=== PATIENT | female | born 1955 | race Caucasian/White ===

== ENCOUNTER 2017-07-11 13:58 | Inpatient (IN) ==
[2017-07-11] MEDS ORDERED: Aspirin 325 MG TABLET PO ONE (14:55)
--- NOTE | 2017-07-11 15:01 | Emergency Department Note ---
Disposition Clinical Impression: New onset a-fib, Atrial fibrillation with RVR Dyspnea Qualifiers: Dyspnea type: unspecified Qualified Code(s): R06.00 - Dyspnea, unspecified Disposition: Admitted As Inpatient Condition: Good Time of Disposition: 18:40 Arrhythmia/Palpitations HPI - General Chief Complaint: ED Arrhythmia/Palpitations Stated Complaint: AKILAH Cough HR feels fast Time Seen by Provider: 07/11/17 14:38 Source: patient Mode of arrival: ambulatory Limitations: no limitations Nursing Notes Reviewed: Yes Vital Signs Reviewed: Yes - History of Present Illness HPI Narrative: Patient is a 62-year-old female with past medical history of depression, high cholesterol, migraines which she takes prophylactic propranolol for, undiagnosed "palpitations" since she was a child. The patient says that ever since she was a child, she has had episodes of palpitations that usually last up to 10 minutes and then go away. These have occurred randomly throughout her life. She has never been evaluated for anything like A. fib, does not currently take any medications for irregular heart rate or blood thinners besides daily baby aspirin. She said that today while at home, she began having palpitations and mild shortness of breath. Denies any chest pain. She said that she coughed up the large amount of phlegm, nonbloody, and then felt that she is moving air better. She denies any history of blood clots or recent travel, recent surgeries, history of cancer. She does admit to being a chronic smoker. She said that her palpitations have been present for at least 3-4 hours now which is the longest that they have been present. Denies any other fevers, nausea, vomiting, abdominal pain - Related Data Home Medications Medication Instructions Recorded Confirmed Cholecalciferol (D-3) [Vitamin D] 2,000 unit PO DAILY 07/07/16 07/11/17 Pravastatin Sodium [Pravachol] 40 mg PO QPM 07/07/16 07/11/17 Omeprazole [PriLOSEC] 20 mg PO BIDAC 07/11/17 07/11/17 Ondansetron ODT [Zofran ODT] 4 mg PO TID PRN 07/11/17 07/11/17 Pramipexole [Mirapex] 0.25 mg PO HS 07/11/17 07/11/17 Propranolol LA (24 HR) [Inderal LA] 60 mg PO DAILY 07/11/17 07/11/17 Rizatriptan Benzoate [Maxalt] 10 mg PO DAILY PRN 07/11/17 07/11/17 Tizanidine HCl 2 mg PO BID PRN 07/11/17 07/11/17 Venlafaxine XR (24 HR) [Effexor XR] 150 mg PO DAILY 07/11/17 07/11/17 Previous Rx's Medication Instructions Recorded Aspirin 81 mg PO DAILY tab.chew 07/09/16 Allergies Allergy/AdvReac Type Severity Reaction Status Date / Time Amoxicillin [From Augmentin] Allergy Rash Verified 03/23/16 18:01 clavulanic acid Allergy Rash Verified 03/23/16 18:01 [From Augmentin] prednisone Allergy Rash Verified 07/11/17 14:27 All systems ED: reviewed and negative except as stated. Constitutional: Denies: fever Cardiovascular: Reports: palpitations. Denies: chest pain Respiratory: Reports: dyspnea, sputum production. Denies: wheezes Gastrointestinal: Denies: abdominal pain, nausea, vomiting Neurological: Denies: headache, weakness, numbness Past Medical History - Past Medical History Attestation: Yes The following information was validated with the patient. Source: patient Medical history: Reports: GERD, hyperlipidemia, TIA, other Surgical history: Reports: cholecystectomy, other Psychiatric history: Reports: depression - Social History Smoking Status: Current every day smoker Smokeless Tobacco Status: No Alcohol use: Reports: occasionally Drug use: Reports: none Physical Exam - General Limitations: no limitations General appearance: alert - Head Head exam: atraumatic, normocephalic, normal inspection - Eye Eye exam: Present: normal appearance, PERRL, EOMI - ENT ENT exam: normal exam, normal oropharynx, mucous membranes moist - Neck Neck exam: Present: normal inspection, full ROM, trachea midline - Chest Chest inspection: Present: normal inspection, symmetric chest wall rise - Respiratory Respiratory exam: Present: normal lung sounds bilaterally. Absent: respiratory distress, wheezes - Cardiovascular Cardiovascular exam: Present: tachycardia, irregular rhythm, normal heart sounds , +S1, +S2. Absent: systolic murmur, diastolic murmur, rubs, gallop - Abdominal Exam Abdominal exam: Present: soft, Non-Tender. Absent: tenderness, distention, guarding, rebound, rigidity - Extremities Exam Extremities exam: Present: full ROM, pedal edema (mild edema LLE). Absent: tenderness - Neurological Exam Neurological exam: Present: alert, oriented X3 - Psychiatric Psychiatric exam: Present: normal affect, normal mood - Skin Skin exam: Present: warm, dry, intact, normal color Course Course Narrative: Pulse and 130s, blood pressure 140s systolic. Patient is mentating well, in no acute distress. Heart irregular rhythm, A. fib. Lungs clear to auscultation. The rest of the physical exam was benign. This likely A. fib RVR. It sounds like the patient has had possible paroxysmal A. fib her entire life that may have not been diagnosed previously due to her history of "palpitations" occurring throughout her childhood and adult life. EKG shows A. fib RVR with no acute ST elevation or depression. We will order a chest x-ray, basic blood work, troponin. We will give the patient Cardizem 10 mg bolus and then start IV cardizem drip. 15:46 mild elevation in white blood cell count, mildly anemic. BMP shows no major abnormalities. Troponin negative. Chest x-ray negative. However, patient's d-dimer is elevated. I discussed this with the patient and she was agreeable with getting a CTA for further evaluation of PE. She continues to have no chest pain at this time. Will also order LE dopplers to assess for DVT due to left LE swelling. 18:14 lower extremity Dopplers were negative for DVT. CTA of the chest was negative for PE. Heart rate is now controlled in the 80s to 100s rate. Repeat EKG shows A. fib with a rate of 100, no acute ST changes. Patient subjectively feels better, no longer has sensation of palpitations. She continues to have no chest pain or dyspnea at this time. Patient is currently on Cardizem drip. We will admit the patient for further care of new onset A. fib RVR. Chest X-Ray 07/11/17 14:55 IMPRESSION: No convincing acute cardiopulmonary abnormality. D/ / Jonatan Conti MD / Jonatan Conti MD Interpreting Provider: Jonatan Conti MD Vital Signs Temperature 98.6 F 07/11/17 14:24 Pulse Rate 139 07/11/17 14:24 Respiratory Rate 18 07/11/17 14:24 Blood Pressure 140/84 07/11/17 14:24 O2 Sat by Pulse Oximetry 95 07/11/17 14:24 Temperature 98.6 F 07/11/17 20:16 Pulse Rate 94 07/11/17 20:16 Respiratory Rate 18 07/11/17 20:16 Blood Pressure 110/48 07/11/17 20:16 O2 Sat by Pulse Oximetry 96 07/11/17 20:16 Oxygen Delivery Oxygen Delivery Room Air Arrhythmia/Palpitations - MDM Narrative Medical decision making narrative: lower extremity Dopplers were negative for DVT. CTA of the chest was negative for PE. Heart rate is now controlled in the 80s to 100s rate. Repeat EKG shows A. fib with a rate of 100, no acute ST changes. Patient subjectively feels better, no longer has sensation of palpitations. She continues to have no chest pain or dyspnea at this time. Patient is currently on Cardizem drip. We will admit the patient for further care of new onset A. fib RVR. - Medical Records Medical records reviewed: Yes I reviewed the patient's medical records. - Lab Data Lab results reviewed: Yes I reviewed the patient's lab results. Result diagrams: 07/11/17 14:34 07/11/17 14:34 Lab Results 07/11/17 07/11/17 07/11/17 Range/Units 14:34 14:34 14:34 WBC 12.7 H (4.3-11.1) K/mcL RBC 3.70 L (3.82-4.97) M/mcL Hgb 11.1 L (11.5-15.4) g/dL Hct 32.9 L (35.3-44.9) % MCV 88.9 (83.0-100.0) fL MCH 30.0 (28.0-33.3) pg MCHC 33.7 (31.6-35.5) g/dL RDW 16.8 H (11.5-14.5) % Plt Count 222 (140-400) K/mcL MPV 11.5 (9.4-12.4) fL Immature Gran % 0.6 (0-4) % Seg Neutrophils % 81.1 % Lymphocytes % 12.1 % Monocytes % 6.1 % Eosinophils % 0.0 % Basophils % 0.1 % Neutrophils # 10.3 H (1.6-8.9) K/mcL Lymphocytes # 1.5 (0.6-4.6) K/mcL Monocytes # 0.8 (0.0-1.3) K/mcL Eosinophils # 0.0 (0.0-0.6) K/mcL Basophils # 0.0 (0.0-0.2) K/mcL PT 10.5 (9.4-12.1) Seconds INR 1.0 APTT 20.4 L (26.0-36.0) Seconds D-Dimer 1325 H (0-500) ng/mLFEU Sodium 138 (136-145) mEq/L Potassium 3.7 (3.5-4.5) mEq/L Chloride 109 (98-109) mEq/L Carbon Dioxide 21 (19-29) mEq/L BUN 13 (7-20) mg/dL Creatinine 0.91 (0.57-1.11) mg/dL Est GFR ( Amer) > 60 (> 60) Est GFR (Non-Af Amer) > 60 (> 60) BUN/Creatinine Ratio 14 (6-26) Glucose 125 H (70-99) mg/dL Calculated Osmolality 288 (280-300) Calcium 8.9 (8.6-10.8) mg/dL Troponin I (0-0.03) ng/mL TSH 0.515 (0.350-4.840) mcIU/mL 07/11/17 Range/Units 14:34 WBC (4.3-11.1) K/mcL RBC (3.82-4.97) M/mcL Hgb (11.5-15.4) g/dL Hct (35.3-44.9) % MCV (83.0-100.0) fL MCH (28.0-33.3) pg MCHC (31.6-35.5) g/dL RDW (11.5-14.5) % Plt Count (140-400) K/mcL MPV (9.4-12.4) fL Immature Gran % (0-4) % Seg Neutrophils % % Lymphocytes % % Monocytes % % Eosinophils % % Basophils % % Neutrophils # (1.6-8.9) K/mcL Lymphocytes # (0.6-4.6) K/mcL Monocytes # (0.0-1.3) K/mcL Eosinophils # (0.0-0.6) K/mcL Basophils # (0.0-0.2) K/mcL PT (9.4-12.1) Seconds INR APTT (26.0-36.0) Seconds D-Dimer (0-500) ng/mLFEU Sodium (136-145) mEq/L Potassium (3.5-4.5) mEq/L Chloride (98-109) mEq/L Carbon Dioxide (19-29) mEq/L BUN (7-20) mg/dL Creatinine (0.57-1.11) mg/dL Est GFR ( Amer) (> 60) Est GFR (Non-Af Amer) (> 60) BUN/Creatinine Ratio (6-26) Glucose (70-99) mg/dL Calculated Osmolality (280-300) Calcium (8.6-10.8) mg/dL Troponin I 0.00 (0-0.03) ng/mL TSH (0.350-4.840) mcIU/mL - Radiology Data Radiology results reviewed: Yes I reviewed the patient's radiology results. Chest X-Ray 07/11/17 14:55 IMPRESSION: No convincing acute cardiopulmonary abnormality. D/ / Jonatan Conti MD / Jonatan Conti MD Interpreting Provider: Jonatan Conti MD Chest CTA 07/11/17 15:45 IMPRESSION: 1. No evidence of pulmonary embolism. 2. Minimal subsegmental platelike bibasilar atelectasis. 3. 3 mm right upper lobe pulmonary nodule. See follow-up recommendations below. RECOMMENDATIONS: Fleischner Society guidelines for follow-up and management of incidentally detected pulmonary nodules: Single Solid Nodule: Nodule size less than 6 mm In a low-risk patient, no routine follow-up. In a high-risk patient, optional CT at 12 months. - Low risk patients include individuals with minimal or absent history of smoking and other known risk factors. - High risk patients include individuals with a history or smoking or known risk factors. Radiology 2017 http://pubs.rsna.org/doi/full/10.1148/radiol.[email or web address] D/ / Dionicio Elise MD / Dionicio Elise MD Interpreting Provider: Dionicio Elise MD - EKG Data EKG attestation: Yes I reviewed and interpreted this EKG. EKG results narrative: 07/11/2017 at 14:16. A. fib RVR. Rate 137. QRS 83. QTc 377. No acute ST elevation or depression. EKG #2. 07/11/2017 at 18:09. A. fib. Rate 100. QRS 93. QTc 403. No acute ST elevation or depression. S.B.A.RHodan - S.Apryl Situation: Demographics, MOA Background: Presenting Complaint, Relevant PMH, Meds, & Allergies Assessment: Vital Signs, Course and respsone to treatment, Exam Concerns, Patient/Family Expectation, Pertinant Lab Results Recommendation: Barrier(s) to disposition, Recommendation based on pending studies, treatments, or consults S.B.Sonali.Jessica Report Given to: Salvador Mulligan Repor Time: 18:39 Attestation Statement - Attestation Attestation: I examined this patient and my medical decision-making was reviewed with the Resident Physician. I agree with the documented findings, disposition and treatment plan as described except to the extent set forth below. 62-year-old female with concern for A. fib with rapid ventricular response. She does also have leg pain. D-dimer was elevated. CT scan of the chest is negative. Duplex are negative. We will admit after Cardizem infusion initiated. The patient had improvement of heart rate with Cardizem. She was admitted in stable condition for cardiac consultation. Aspirin was administered.
[2017-07-11 15:16] LABS: Basophils % 0.1 %; Hematocrit 32.9 % (35.3-44.9); Hemoglobin 11.1 g/dL (11.5-15.4); Immature Granulocytes % 0.6 % (0-4); Lymphocytes # 1.5 K/mcL (0.6-4.6); Lymphocytes % 12.1 %; Mean Corpuscular HGB Conc 33.7 g/dL (31.6-35.5); Mean Corpuscular Volume 88.9 fL (83.0-100.0); Mean Platelet Volume 11.5 fL (9.4-12.4); Monocytes # 0.8 K/mcL (0.0-1.3); Monocytes % 6.1 %; Neutrophils # 10.3 K/mcL (1.6-8.9); Platelet Count 222 K/mcL (140-400); Red Cell Distribution Width 16.8 % (11.5-14.5); Segmented Neutrophils % 81.1 %
[2017-07-11 15:24] LABS: BUN/Creatinine Ratio 14 (6-26); Blood Urea Nitrogen 13 mg/dL (7-20); Calcium 8.9 mg/dL (8.6-10.8); Carbon Dioxide 21 mEq/L (19-29); Chloride 109 mEq/L (98-109); Glucose 125 mg/dL (70-99); Osmolality,Calculated 288 (280-300); Potassium 3.7 mEq/L (3.5-4.5); Prothrombin Time 10.5 Seconds (9.4-12.1); Sodium 138 mEq/L (136-145); eGFR For African Americans > 60 (> 60); eGFR For Non-African Americans > 60 (> 60)
[2017-07-11 15:28] LABS: Activated Partial Thrombo Time 20.4 Seconds (26.0-36.0)
[2017-07-11 15:46] LABS: Thyroid Stimulating Hormone 0.515 mcIU/mL (0.350-4.840)
[2017-07-11] MEDS ORDERED: Naloxone 0.4 MG/ML INJ IVP PRN (20:17)
[2017-07-11] MEDS: Divalproex (24 HR) 250 MG TABLET PO SCH (21:14)
--- NOTE | 2017-07-11 21:54 | Internal Med History&Physical ---
<Jesus Hutchinson - Last Filed: 07/12/17 00:39> Date of Encounter: 07/11/17 Internal Medicine - H&P: HPI History of present illness: Ms. Barksdale is a 62 year old female Internal Medicine - H&P: Meds Cholecalciferol (D-3) [Vitamin D] 2,000 unit PO DAILY 07/07/16 [History] Pravastatin Sodium [Pravachol] 40 mg PO QPM 07/07/16 [History] Aspirin 81 mg PO DAILY tab.chew 07/09/16 [Rx] Omeprazole [PriLOSEC] 20 mg PO BIDAC 07/11/17 [History] Ondansetron ODT [Zofran ODT] 4 mg PO TID PRN 07/11/17 [History] Pramipexole [Mirapex] 0.25 mg PO HS 07/11/17 [History] Propranolol LA (24 HR) [Inderal LA] 60 mg PO DAILY 07/11/17 [History] Rizatriptan Benzoate [Maxalt] 10 mg PO DAILY PRN 07/11/17 [History] Tizanidine HCl 2 mg PO BID PRN 07/11/17 [History] Venlafaxine XR (24 HR) [Effexor XR] 150 mg PO DAILY 07/11/17 [History] 3 Allergy/AdvReac Type Severity Reaction Status Date / Time Amoxicillin [From Augmentin] Allergy Rash Verified 03/23/16 18:01 clavulanic acid Allergy Rash Verified 03/23/16 18:01 [From Augmentin] prednisone Allergy Rash Verified 07/11/17 14:27 All Systems PM: A 10-system review of systems was performed and is negative for pertinent findings except as documented above in the HPI. - Constitutional Vitals: Temp Pulse Resp BP Pulse Ox 98.4 F 68 17 98/58 95 07/11/17 23:43 07/11/17 23:43 07/11/17 23:43 07/11/17 23:43 07/11/17 23:43 Internal Med - H&P Results - Labs CBC & Chem 7: 07/11/17 14:34 07/11/17 14:34 Labs: Cardiac Enzymes 07/11/17 Range/Units 21:30 Troponin I 0.01 (0-0.03) ng/mL - Attending Attestation Patient was seen and examined personally on the floor on July 11 and plan and findings discussed with nurse practitioner and agreed. Patient has history of palpitations and today she came in with new onset A. fib with RVR. She is on Cardizem drip and now heart rate is well controlled. Her chads score is quite low and therefore anticoagulation is not started. An echocardiogram and stress test ordered for the morning to see if these are ischemia induced arrhythmia. Cardiology will be consulted. Her TSH is normal <Isabella Joyner L - Last Filed: 07/12/17 02:00> Date of Encounter: 07/11/17 Time of Encounter: 21:54 Assessment and Plan (1) New onset a-fib Current visit: Yes Status: Acute Patient states that she has had palpitations all for her life normally they last approximately 10 minutes and resolve on her own. Today she had episode with shortness of breath that lasted a few hours. She denied any chest pain or lightheadedness. She was noted to be in A. fib RVR with heart rate 130. Started on Cardizem drip and was given aspirin. D-dimer was elevated but it was negative for any PE C Dopplers were negative. We will continue with Cardizem drip 2 consult cardiology 3 obtaining echo 4 patient's chads score is 1 for gender . Continue with aspirin 5 continue with cardiac monitoring (2) Tobacco abuse Current visit: No Status: Chronic Encourage patient to stop smoking, states has been cutting back to offer nicotine patch but declined at this time (3) DVT prophylaxis Current visit: No Status: Acute Internal Medicine - H&P: HPI Chief complaint: Palpitations-shortness of breath Admitted From: Emergency Dept Plans for Post Hospital Care: Home History of present illness: Ms. Barksdale is a 62 year old female past medical history of depression high cholesterol migraines DVT palpitations. According to patient she has been experiencing palpitations ever since she was a child. These episodes usually last about 10 minutes and then resolve on their own. They randomly occur throughout her life and she is never really been evaluated. She is not on any medications for rate control or blood thinners besides a daily baby aspirin. Today she began to experience palpitations and was having mild shortness of breath. She denied any chest pain or nausea. She had an episode of coughing and she coughed up a large amount of phlegm. The palpitation episode lasted longer than previous episodes approximately 3-4 hours. She denies any history of DVT recent travels or surgeries or history of cancer. She is a smoker and does not use any home oxygen or inhalers. She presented to the ER with the above complaints. According to ER records upon presentation patient's heart rate was in the 130s his atrial fib with RVR. She was hemodynamically stable with low pressure 140s systolic. Lab work was obtained the TSH was 0.515 troponin was 0 d-dimer was elevated CTA and nursery Dopplers were obtained and both were negative chest x-ray with no acute processes. Slight leukocytosis 12.7. She was given a Cardizem bolus and started on a drip and was given aspirin. She has been admitted for further workup and evaluation. Presently patient appears to be in A. fib with controlled rate of 90. She is hemodynamically stable and denies any chest pain at this time. I did review this case with Dr. Lockhart who agrees with plan. Past Med Surg Social Fam HX - Past Medical History Medical history: GERD, hyperlipidemia, TIA, other Psychiatric history: depression - Past Surgical History Surgical History: cholecystectomy, other - Social History Smoking Status: Current every day smoker Smokeless Tobacco Status: No Alcohol use: occasionally Drug use: none - Family History Brother Living Status: Still Living Hx Family Cardiac Disorders: Yes (Quad bypass surgery 2013) Hx Family Cancer: Yes (Prostate ca) Hx Family Neurologic Disorders: Yes (migraines) Sister History Unknown: Yes Living Status: Still Living Hx Family Cardiac Disorders: Yes (HTN) Hx Family Endocrine Disorder: Yes (DM) Hx Family Neurologic Disorders: Yes (migrains) Mother Living Status: Hx Family Cardiac Disorders: Yes (Blood clots) Hx Family Endocrine Disorder: Yes (DM) All Systems PM: A 10-system review of systems was performed and is negative for pertinent findings except as documented above in the HPI. - Constitutional Constitutional: no chills, no fever(s), no night sweats - EENT Eyes: no change in vision, no discharge, no pain, no photophobia Nose, mouth and throat: no dysphagia, no nasal discharge, no neck pain, no sore throat - Cardiovascular Cardiovascular ROS IM: dyspnea, palpitations, no chest pain, no diaphoresis, no lightheadedness, no syncope - Respiratory Respiratory: cough, change in phlegm color, no dyspnea, no wheezing, no excessive phlegm production - Gastrointestinal Gastrointestinal: no abdominal pain, no diarrhea, no hematemesis, no hematochezia, no melena, no nausea, no vomiting - Genitourinary Genitourinary: no change in urinary stream, no dysuria, no flank pain, no hematuria - Musculoskeletal Musculoskeletal ROS IM: no numbness, no tingling - Integumentary Integumentary IM: no rash, no unusual bruising - Neurological Neurological ROS: no confusion, no convulsions, no focal weakness, no numbness, no tingling, no tremor(s) - Hematologic/Lymphatic Hematologic/Lymphatic: no easy bruising - Constitutional Vitals: Temp Pulse Resp BP Pulse Ox 98.6 F 94 18 110/48 96 07/11/17 20:16 07/11/17 20:16 07/11/17 20:16 07/11/17 20:16 07/11/17 20:16 General appearance: Present: A&O X 3, answers questions appropriately - Head Head exam: Present: atraumatic, normocephalic - Eye Eye exam: Present: PERRL, conjuntiva pink, sclera anicteric Pupils: Present: PERRL - Neck Neck exam general surgery: Present: supple, trachea midline. Absent: lymphadenopathy - Respiratory Respiratory exam: Present: CTAB. Absent: accessory muscle use, rales, rhonchi, wheezes - Cardiovascular Cardiovascular exam: Present: irregular rhythm, +S1, +S2. Absent: diastolic murmur, gallop, rubs, systolic murmur - GI/Abdominal GI/Abdominal exam: Present: normal bowel sounds, soft, no peritoneal signs. Absent: distended, tenderness - Extremities Exam Extremities exam: Present: warm, radial pulses palpable and symmetrical. Absent : calf tenderness, cyanotic, pedal edema - Neurological Exam Neurological exam: Present: CN II-XII intact, oriented X3, no focal deficits. Absent: pronater drift, facial droop, speech deficit - Skin Skin exam: Present: dry, intact Internal Med - H&P Results - Labs CBC & Chem 7: 07/11/17 14:34 07/11/17 14:34 - EKG Data EKG comments: 07/11/17 22:12 Atrial fibrillation with no ST-T wave abnormalities - Diagnostic Studies Other Images Additional comments: Chest X-Ray 07/11/17 14:55 IMPRESSION: No convincing acute cardiopulmonary abnormality. D/ / Jonatan Conti MD / Jonatan Cnoti MD Interpreting Provider: Jonatan Conti MD Chest CTA 07/11/17 15:45 IMPRESSION: 1. No evidence of pulmonary embolism. 2. Minimal subsegmental platelike bibasilar atelectasis. 3. 3 mm right upper lobe pulmonary nodule. See follow-up recommendations below. RECOMMENDATIONS: Fleischner Society guidelines for follow-up and management of incidentally detected pulmonary nodules: Single Solid Nodule: Nodule size less than 6 mm In a low-risk patient, no routine follow-up. In a high-risk patient, optional CT at 12 months. - Low risk patients include individuals with minimal or absent history of smoking and other known risk factors. - High risk patients include individuals with a history or smoking or known risk factors. Radiology 2017 http://pubs.rsna.org/doi/full/10.1148/radiol.[email or web address] D/ / Dionicio Elise MD / Dionicio Elise MD Interpreting Provider: Dionicio Elise MD
[2017-07-12 04:15] LABS: BUN/Creatinine Ratio 15 (6-26); Blood Urea Nitrogen 13 mg/dL (7-20); Calcium 8.5 mg/dL (8.6-10.8); Carbon Dioxide 22 mEq/L (19-29); Chloride 109 mEq/L (98-109); Chol/HDL Ratio 2.5 (0-4.9); Cholesterol 154 mg/dL (< 200); Glucose 86 mg/dL (70-99); HDL Cholesterol 61 mg/dL (40-59); LDL Cholesterol,Calculated 72 mg/dL (0-99); Magnesium 2.1 mg/dL (1.6-2.6); Osmolality,Calculated 287 (280-300); Sodium 139 mEq/L (136-145); Triglycerides 107 mg/dL (< 150); eGFR For African Americans > 60 (> 60); eGFR For Non-African Americans > 60 (> 60)
[2017-07-12 06:47] LABS: Basophils # 0.1 K/mcL (0.0-0.2); Basophils % 0.3 %; Eosinophils # 0.1 K/mcL (0.0-0.6); Eosinophils % 0.5 %; Hematocrit 32.9 % (35.3-44.9); Immature Granulocytes % 0.5 % (0-4); Immature Platelets 3.6 % (1.1-6.1); Lymphocytes # 5.7 K/mcL (0.6-4.6); Lymphocytes % 36.7 %; Mean Corpuscular HGB Conc 33.4 g/dL (31.6-35.5); Mean Corpuscular Hemoglobin 29.8 pg (28.0-33.3); Mean Corpuscular Volume 89.2 fL (83.0-100.0); Mean Platelet Volume 10.3 fL (9.4-12.4); Monocytes % 13.1 %; Neutrophils # 7.5 K/mcL (1.6-8.9); Platelet Count 230 K/mcL (140-400); Red Blood Count 3.69 M/mcL (3.82-4.97); Red Cell Distribution Width 16.6 % (11.5-14.5); Segmented Neutrophils % 48.9 %
[2017-07-12] MEDS: Venlafaxine XR (24 HR) 150 MG CAP.ER.24H PO SCH (07:51)
[2017-07-12] MEDS: Aspirin 81 MG TAB.CHEW PO SCH (07:51)
--- NOTE | 2017-07-12 09:25 | Cardiology Consult Note ---
Date of Encounter: 07/12/17 Time of Encounter: 09:22 Assessment and Plan (1) Atrial fibrillation with RVR Current Visit: Yes Status: Acute New diagnosis, although reports intermittent palpitations for years. HR currently 70s-90s at bedside. Reports symptoms have improved with rate control. Currently denies palpitations, dyspnea or chest pain. On Lopressor 25mg BID and Cardizem gtt at 5mg/hr. Will transition to PO Cardizem CD 120mg daily. TSH 0.515, K 4.0, Mag 2.1. Echo 04/18/14 EF 55-60%, mild-moderate AR. Recheck echo to evaluate EF and valves. [id number] is either a 1 (female) or 3 (female, TIA). Pt had episode in 2013, records reviewed, where she had a possible TIA vs. stress reaction. Given possible hx of TIA, recommend terminal worker anticoagulation. Discussed Coumadin vs NOACs. Prefers NOAC. Will brown check once echo is reviewed since she had mild- mod AR in 2013. Continue to follow until echo results and anticoagulation is determined. (2) Tobacco abuse Current Visit: No Status: Chronic Smoking cessation counseling given. Discussion w patient/family: The assessment and plan as outlined above was discussed with the patient and/or family members who expressed understanding and agreement. All questions were answered. Thank you for involving us in the care of your patient. Please call with any questions. I will discuss all the above with Dr. Mansfield and make changes as necessary. History of Present Illness Consult date: 07/12/17 Requesting physician: Jesus Hutchinson Consult reason: A-Fib RVR Chief complaint: palpitations History of present illness: Ms. Barksdale is a 62 year old female with past medical history of depression, HLD, possible TIA, palpitations, tobacco abuse. According to patient she has been experiencing palpitations ever since she was a child. These episodes usually last about 10 minutes and then resolve on their own. They randomly occur throughout her life and she is never really been evaluated for them. She is not on any medications for rate control or blood thinners besides a daily baby aspirin. Yesterday she began to experience palpitations and was having mild shortness of breath. She denied any chest pain or nausea. She had an episode of coughing and she coughed up a large amount of phlegm. The palpitation episode lasted longer than previous episodes, ongoing for approximately 3-4 hours, which prompted ED evaluation. Upon arrival, pt found to be in A-Fib with RVR, HR 130s. Troponin negative x 3, TSH 0.515, K 4.0, Mag 2.1. DDimer was elevated--CTA ruled out PE. Echo in 2014 showed preserved EF with mild-moderate AR. Past Med Surg Social Fam HX - Past Medical History Medical history: GERD, hyperlipidemia, TIA, other Psychiatric history: depression - Past Surgical History Surgical History: cholecystectomy, other - Social History Smoking Status: Current every day smoker Smokeless Tobacco Status: No Alcohol use: occasionally Drug use: none - Family History Brother Living Status: Still Living Hx Family Cardiac Disorders: Yes (Quad bypass surgery 2013) Hx Family Cancer: Yes (Prostate ca) Hx Family Neurologic Disorders: Yes (migraines) Sister History Unknown: Yes Living Status: Still Living Hx Family Cardiac Disorders: Yes (HTN) Hx Family Endocrine Disorder: Yes (DM) Hx Family Neurologic Disorders: Yes (migrains) Mother Living Status: Hx Family Cardiac Disorders: Yes (Blood clots) Hx Family Endocrine Disorder: Yes (DM) Medications and Allergies Cholecalciferol (D-3) [Vitamin D] 2,000 unit PO DAILY 07/07/16 [History] Pravastatin Sodium [Pravachol] 40 mg PO QPM 07/07/16 [History] Aspirin 81 mg PO DAILY tab.chew 07/09/16 [Rx] Omeprazole [PriLOSEC] 20 mg PO BIDAC 07/11/17 [History] Ondansetron ODT [Zofran ODT] 4 mg PO TID PRN 07/11/17 [History] Pramipexole [Mirapex] 0.25 mg PO HS 07/11/17 [History] Propranolol LA (24 HR) [Inderal LA] 60 mg PO DAILY 07/11/17 [History] Rizatriptan Benzoate [Maxalt] 10 mg PO DAILY PRN 07/11/17 [History] Tizanidine HCl 2 mg PO BID PRN 07/11/17 [History] Venlafaxine XR (24 HR) [Effexor XR] 150 mg PO DAILY 07/11/17 [History] 3 Allergy/AdvReac Type Severity Reaction Status Date / Time Amoxicillin [From Augmentin] Allergy Rash Verified 03/23/16 18:01 clavulanic acid Allergy Rash Verified 03/23/16 18:01 [From Augmentin] prednisone Allergy Rash Verified 07/11/17 14:27 All Systems Review: A 10-system review of systems was performed and is negative for pertinent findings except as documented above in the HPI. - Cardiovascular Cardiovascular: as per HPI, dyspnea at rest, dyspnea on exertion, palpitations - Respiratory Respiratory: cough, dyspnea Physical Examination Vital Signs, Last 4 Hours Temp Pulse Resp BP Pulse Ox 07/12/17 07:55 73 07/12/17 07:20 98.8 F 90 12 108/49 94 07/12/17 06:10 82 121/63 Vital Signs Temp Pulse Resp BP Pulse Ox 07/12/17 07:55 73 07/12/17 07:20 98.8 F 90 12 108/49 94 07/12/17 06:10 82 121/63 07/12/17 05:10 82 112/59 07/12/17 04:12 78 109/62 07/12/17 03:12 98.3 F 71 18 106/56 96 07/12/17 02:00 81 110/77 07/12/17 01:12 67 110/46 07/11/17 23:43 98.4 F 68 17 98/58 95 07/11/17 23:00 73 105/47 07/11/17 22:00 81 122/67 07/11/17 21:00 98 F 75 116/51 07/11/17 20:16 98.6 F 94 18 110/48 96 07/11/17 19:00 20 129/75 07/11/17 18:00 88 20 118/51 95 07/11/17 17:53 90 20 118/63 96 07/11/17 16:30 80 20 117/53 94 07/11/17 15:30 118 20 127/69 95 07/11/17 15:00 138 20 128/104 95 07/11/17 14:45 95 07/11/17 14:43 141 20 126/91 96 07/11/17 14:24 98.6 F 139 18 140/84 95 Intake and Output 07/11/17 07/12/17 07/12/17 23:59 07:59 15:59 Intake Total 50 / 50 0 / 0 75 / 75 Output Total 200 / 200 200 / 200 Balance -150 / -150 -200 / -200 75 / 75 Intake: IV Fluids 75 / 75 Cardizem 125 MG In Dextrose 5% 75 / 75 100 ML @ 5 MG/HR 5 mls/hr IVC . Q24H [facility] Rx#:[id number] Oral 50 / 50 0 / 0 Output: Urine 200 / 200 200 / 200 Other: Weight 87.543 kg 89.9 kg Patient Weight 07/12/17 23:59 Weight 89.9 kg General: Conversant, No Apparent Distress HEENT: Atraumatic, Normocephaly, Mucus Membranes Moist Neck: No JVD, Normal carotid pulses Cardiac: Other (irregularly irregular rhythm) Lungs: Normal Breath Sounds Neuro: Alert and responsive, No focal deficits noted Abdomen: Soft, Non-Tender Skin: No rashes noted on visualized skin Musculoskeletal: No Chest Wall Tenderness Extremities: No Clubbing, No Cyanosis, No Edema, Normal Pulses Results 07/12/17 06:34 07/12/17 02:48 Lab Results 07/11/17 07/12/17 07/12/17 21:30 02:48 02:48 WBC Hgb Hct Plt Count Sodium 139 Potassium 4.0 Chloride 109 Carbon Dioxide 22 BUN 13 Creatinine 0.87 Glucose 86 Calcium 8.5 L Magnesium 2.1 Troponin I 0.01 0.02 07/12/17 06:34 WBC 15.4 H Hgb 11.0 L Hct 32.9 L Plt Count 230 Sodium Potassium Chloride Carbon Dioxide BUN Creatinine Glucose Calcium Magnesium Troponin I Short CBC 07/12/17 07/11/17 Range/Units 06:34 14:34 WBC 15.4 H 12.7 H (4.3-11.1) K/mcL Hgb 11.0 L 11.1 L (11.5-15.4) g/dL Hct 32.9 L 32.9 L (35.3-44.9) % Plt Count 230 222 (140-400) K/mcL Neutrophils # 7.5 10.3 H (1.6-8.9) K/mcL BMP 07/12/17 07/11/17 Range/Units 02:48 14:34 Sodium 139 138 (136-145) mEq/L Potassium 4.0 3.7 (3.5-4.5) mEq/L Chloride 109 109 (98-109) mEq/L Carbon Dioxide 22 21 (19-29) mEq/L BUN 13 13 (7-20) mg/dL Creatinine 0.87 0.91 (0.57-1.11) mg/dL Glucose 86 125 H (70-99) mg/dL Calcium 8.5 L 8.9 (8.6-10.8) mg/dL Cardiac Enzymes 07/12/17 07/11/17 07/11/17 Range/Units 02:48 21:30 14:34 Troponin I 0.02 0.01 0.00 (0-0.03) ng/mL Impressions Chest X-Ray 07/11/17 14:55 IMPRESSION: No convincing acute cardiopulmonary abnormality. D/ / Jonatan Conti MD / Jonatan Conti MD Interpreting Provider: Jonatan Conti MD Chest CTA 07/11/17 15:45 IMPRESSION: 1. No evidence of pulmonary embolism. 2. Minimal subsegmental platelike bibasilar atelectasis. 3. 3 mm right upper lobe pulmonary nodule. See follow-up recommendations below. RECOMMENDATIONS: Fleischner Society guidelines for follow-up and management of incidentally detected pulmonary nodules: Single Solid Nodule: Nodule size less than 6 mm In a low-risk patient, no routine follow-up. In a high-risk patient, optional CT at 12 months. Active Medications Acetaminophen (Tylenol) 650 mg PO Q6HR PRN PRN Reason: Mild Pain (1-3) Stop: 01/10/18 20:18 Aspirin (Aspirin) 81 mg PO DAILY [facility] Stop: 01/11/18 09:01 Last Admin: 07/12/17 07:51 Dose: 81 mg Divalproex Sodium (Depakote Er (24 Hr)) 250 mg PO HS [facility] Stop: 01/10/18 21:01 Last Admin: 07/11/17 21:14 Dose: Not Given Metoprolol Tartrate (Lopressor) 25 mg PO BID [facility] Stop: 01/11/18 09:01 Last Admin: 07/12/17 09:14 Dose: 25 mg Naloxone HCl (Narcan) 0.4 mg IVP Q2MIN PRN PRN Reason: Opioid Reversal Stop: 01/10/18 20:18 Omeprazole (Prilosec) 20 mg PO BIDAC [facility] PRN Reason: Protocol Stop: 01/11/18 07:31 Last Admin: 07/12/17 07:51 Dose: 20 mg Ondansetron HCl (Zofran) 4 mg IVP Q8HR PRN PRN Reason: Nausea And Vomiting Stop: 01/10/18 20:18 Pramipexole Dihydrochloride (Mirapex) 0.25 mg PO HS [facility] Stop: 01/10/18 21:01 Last Admin: 07/11/17 21:14 Dose: 0.25 mg Simvastatin (Zocor) 20 mg PO QPM [facility] Stop: 01/11/18 18:01 Venlafaxine HCl (Effexor Xr) 150 mg PO DAILY [facility] PRN Reason: Protocol Stop: 01/11/18 09:01 Last Admin: 07/12/17 07:51 Dose: 150 mg - Low risk patients include individuals with minimal or absent history of smoking and other known risk factors. - High risk patients include individuals with a history or smoking or known risk factors. Radiology 2017 http://pubs.rsna.org/doi/full/10.1148/radiol.1220469390 D/ / Dionicio Elsie MD / Dionicio Elise MD Interpreting Provider: Dionicio Elise MD - Imaging and Cardiology Echo: report reviewed - EKG Interpretation EKG results cardiology: personally reviewed (A-Fib RVR HR 130s), other (12 hr tele AVG HR 75, A-Fib) Consult Discharge Plan - Plan Referrals: Juhi Jacobson MD [Primary Care Provider] -
--- NOTE | 2017-07-12 11:05 | Internal Med Progress Note ---
Date of Encounter: 07/12/17 Time of Encounter: 11:04 - Assessment and plan (1) Atrial fibrillation with RVR Current Visit: Yes Status: Acute Assessment and plan: Continue BB and diltiazem PO xarelto Follow ECHO cardiology input appreciated (2) Leukocytosis Current Visit: Yes Status: Acute Assessment and plan: Etiology unknown at this time, continue to monitor Qualifiers: Leukocytosis type: unspecified Qualified Code(s): D72.829 - Elevated white blood cell count, unspecified (3) Obesity (BMI 30.0-34.9) Current Visit: Yes Status: Chronic Assessment and plan: Lifestyle modification - Subjective Interval history: Seen and examined at bedside Being managed for Afib with RVR, HR now controlled Leukocytosis is unexplained, she denies chest, or GI symptoms, she is not on steroids at home - Constitutional Vitals: Temp Pulse Resp BP Pulse Ox 98.6 F 73 12 119/62 95 07/12/17 10:47 07/12/17 07:55 07/12/17 10:47 07/12/17 10:47 07/12/17 10:47 General appearance: Present: A&O X 3, pleasant, no acute distress, answers questions appropriately - Head Head exam: Present: atraumatic, normocephalic - Eye Eye exam: Present: PERRL, conjuntiva pink, sclera anicteric Pupils: Present: PERRL - Neck Neck exam general surgery: Present: supple, trachea midline. Absent: lymphadenopathy - Respiratory Respiratory exam: Present: CTAB. Absent: accessory muscle use, rales, rhonchi, wheezes - Cardiovascular Cardiovascular exam: Present: RRR, +S1, +S2. Absent: diastolic murmur, gallop, rubs, systolic murmur - GI/Abdominal GI/Abdominal exam: Present: normal bowel sounds, soft, no peritoneal signs. Absent: distended, tenderness - Extremities Exam Extremities exam: Present: warm, radial pulses palpable and symmetrical. Absent : calf tenderness, cyanotic, pedal edema - Neurological Exam Neurological exam: Present: alert, CN II-XII intact, oriented X3, no focal deficits. Absent: pronater drift, facial droop, speech deficit - Skin Skin exam: Present: dry, intact Internal Medicine: Result - Labs CBC & Chem 7: 07/12/17 06:34 07/12/17 02:48 Labs: Short CBC 07/12/17 Range/Units 06:34 WBC 15.4 H (4.3-11.1) K/mcL Hgb 11.0 L (11.5-15.4) g/dL Hct 32.9 L (35.3-44.9) % Plt Count 230 (140-400) K/mcL Neutrophils # 7.5 (1.6-8.9) K/mcL BMP 07/12/17 02:48 Sodium 139 Potassium 4.0 Chloride 109 Carbon Dioxide 22 BUN 13 Creatinine 0.87 Glucose 86 Calcium 8.5 L Cardiac Enzymes 07/11/17 07/12/17 Range/Units 21:30 02:48 Troponin I 0.01 0.02 (0-0.03) ng/mL - ABG Interpretation ABG results: PT/INR, D-dimer PT 10.5 Seconds (9.4-12.1) 07/11/17 14:34 D-Dimer 1325 ng/mLFEU (0-500) H 07/11/17 14:34 Consult Discharge Plan - Plan Referrals: Juhi Jacobson MD [Primary Care Provider] - (SENT WEB REQUEST ON @ 1299)
[2017-07-12] MEDS: Diltiazem CD (24hr) 120 MG CAPSULE PO SCH (11:19)
[2017-07-12] MEDS: Ondansetron 4 MG/2 ML VIAL IVP PRN (12:27)
[2017-07-12] MEDS: Acetaminophen 325 MG TABLET PO PRN ×2 (12:27→18:23)
--- NOTE | 2017-07-12 12:29 | Electrocardiograph Report ---
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
--- NOTE | 2017-07-12 13:58 | Event Note ---
Date of Encounter: 07/12/17 Time of Encounter: 13:55 - Cardiology Event Note Echo resulted--LVEF 55-60%, Normal LV chamber size, wall thickness and function , Moderately dilated left atrium, Moderate aortic regurgitation, Mild mitral regurgitation, Mild tricuspid regurgitation, No pulmonary hypertension. Xarelto was brown checked--$0 copay. Recommend starting Xarelto this evening. Cardiology signing off. Reconsult PRN. Will coordinate outpt follow-up.
[2017-07-12] MEDS ORDERED: *HR* Rivaroxaban 10 MG TABLET PO SCH (17:00)
[2017-07-12] MEDS: Divalproex (24 HR) 250 MG TABLET PO SCH (19:31)
[2017-07-13] MEDS: Acetaminophen 325 MG TABLET PO PRN (00:05)
[2017-07-13 05:56] LABS: Basophils % 0.4 %; Eosinophils # 0.1 K/mcL (0.0-0.6); Eosinophils % 1.3 %; Hematocrit 35.2 % (35.3-44.9); Hemoglobin 11.6 g/dL (11.5-15.4); Immature Granulocytes % 0.3 % (0-4); Lymphocytes # 3.9 K/mcL (0.6-4.6); Lymphocytes % 38.6 %; Mean Corpuscular Hemoglobin 29.4 pg (28.0-33.3); Mean Corpuscular Volume 89.1 fL (83.0-100.0); Mean Platelet Volume 10.5 fL (9.4-12.4); Monocytes # 1.6 K/mcL (0.0-1.3); Monocytes % 15.8 %; Neutrophils # 4.4 K/mcL (1.6-8.9); Platelet Count 241 K/mcL (140-400); Red Blood Count 3.95 M/mcL (3.82-4.97); Red Cell Distribution Width 16.4 % (11.5-14.5); Segmented Neutrophils % 43.6 %
[2017-07-13] MEDS: Venlafaxine XR (24 HR) 150 MG CAP.ER.24H PO SCH (07:26)
[2017-07-13] MEDS: Aspirin 81 MG TAB.CHEW PO SCH (07:26)
[2017-07-13] MEDS: Diltiazem CD (24hr) 120 MG CAPSULE PO SCH (07:26)
--- NOTE | 2017-07-13 07:45 | Discharge Summary ---
Date of Encounter: 07/13/17 Time of Encounter: 07:43 - Discharge Diagnosis (1) Atrial fibrillation with RVR Priority: Primary Status: Acute (2) Leukocytosis Priority: Primary Status: Resolved Qualifiers: Leukocytosis type: unspecified Qualified Code(s): D72.829 - Elevated white blood cell count, unspecified (3) Obesity (BMI 30.0-34.9) Priority: Secondary Status: Chronic (4) Tobacco abuse Priority: Secondary Status: Chronic (5) HLD (hyperlipidemia) Priority: Secondary Status: Chronic Qualifiers: Hyperlipidemia type: unspecified Qualified Code(s): E78.5 - Hyperlipidemia , unspecified (6) Depression Priority: Secondary Status: Chronic Qualifiers: Depression Type: unspecified Qualified Code(s): F32.9 - Major depressive disorder, single episode, unspecified - Discharge Medications Prescriptions: Diltiazem CD (24hr) [Cardizem CD] 120 mg PO DAILY #30 cap.er.24h Metoprolol [Lopressor] 25 mg PO BID #60 tablet Rivaroxaban [Xarelto] 20 mg PO 1700 #30 tablet Home Medications: Cholecalciferol (D-3) [Vitamin D] 2,000 unit PO DAILY 07/07/16 [History] Pravastatin Sodium [Pravachol] 40 mg PO QPM 07/07/16 [History] Aspirin 81 mg PO DAILY tab.chew 07/09/16 [Rx] Omeprazole [PriLOSEC] 20 mg PO BIDAC 07/11/17 [History] Ondansetron ODT [Zofran ODT] 4 mg PO TID PRN 07/11/17 [History] Pramipexole [Mirapex] 0.25 mg PO HS 07/11/17 [History] Rizatriptan Benzoate [Maxalt] 10 mg PO DAILY PRN 07/11/17 [History] Tizanidine HCl 2 mg PO BID PRN 07/11/17 [History] Venlafaxine XR (24 HR) [Effexor Xr] 150 mg PO DAILY 07/11/17 [History] Diltiazem CD (24hr) [Cardizem CD] 120 mg PO DAILY #30 cap.er.24h 07/13/17 [Rx] Divalproex (24 HR) [Depakote ER (24 HR)] 250 mg PO HS tab.er.24h 07/13/17 [Rx] Metoprolol [Lopressor] 25 mg PO BID #60 tablet 07/13/17 [Rx] Rivaroxaban [Xarelto] 20 mg PO 1700 #30 tablet 07/13/17 [Rx] Allergies/Adverse Reactions: 3 Allergy/AdvReac Type Severity Reaction Status Date / Time Amoxicillin [From Augmentin] Allergy Rash Verified 03/23/16 18:01 clavulanic acid Allergy Rash Verified 03/23/16 18:01 [From Augmentin] prednisone Allergy Rash Verified 07/11/17 14:27 Procedures/tests Complete & Pending: Procedures Performed prior 72 hours Category Date Time Status EV echocardiogram Routine Y 07/12/17 22:19 Completed Date of admission: 07/11/17 20:17 Primary care physician: Juhi Jacobson Consults: 07/11/17 22:19 Consult to Cardiology [CONS] Routine Comment: Consulting Provider: Cardiology [place] Reason for Consult: New-onset atrial fibrillation Time Notified: 22:19 Call Completed: No Discharging clinician: Mino Daniel Anticipated date of discharge: 07/13/17 - Patient Status Disposition: Home, Self-Care Condition: Good Functional capacity at discharge: independent ambulation Overall status at discharge: patient is back to baseline - Discharge Instructions Instructions: Atrial Fibrillation (DC) Follow Up With: Juhi Jacobson MD [Primary Care Provider] - (SENT WEB REQUEST ON @ [id number]) - Diet and Activity Activity: resume usual activities as tolerated Diet: low salt diet Interval History: See below Hospital course: Ms. Barksdale is a 62 year old female with PMH of Migraine headaches, Tobacco abuse, hx of TIA in the past who was admitted for management of Afib with RVR She was managed with Cardizem drip and Metoprolol and responded adequately ECHO, electrolytes and TSH were WNL Cardiology was consulted and recommendations were followed Her HR and BP has been stable on Cardizem and Metoprolol She is seen and evaluated at bedside this morning, no new complains, ambulatory , no chest pain or SOB She has been educated on, and started on Xarelto for a CHADs score of 3 The patient had leukocytosis on admission that resolved without any medications or therapy, she did not have GI//Chest symptoms and she had no swellings or masses Tobacco cessation counselling done Flu vaccine recommended Follow up with PCP and cardiology Time spent discussing smoking cessation with patient: 3 to 10 minutes - Time Spent with Patient Total time spent providing and/or coordinating discharge services: Greater than 30 minutes - Constitutional Vitals: Temp Pulse Resp BP Pulse Ox 98 F 64 18 110/87 96 07/13/17 03:44 07/13/17 07:00 07/13/17 03:44 07/13/17 03:44 07/13/17 03:44 General appearance: Present: A&O X 3, pleasant, no acute distress, obese, answers questions appropriately - Head Head exam: Present: atraumatic, normocephalic - Eye Eye exam: Present: PERRL, conjuntiva pink, sclera anicteric Pupils: Present: PERRL - Neck Neck exam general surgery: Present: supple, trachea midline. Absent: lymphadenopathy - Respiratory Respiratory exam: Present: CTAB. Absent: accessory muscle use, rales, rhonchi, wheezes - Cardiovascular Cardiovascular exam: Present: irregular rhythm, +S1, +S2. Absent: diastolic murmur, gallop, rubs, systolic murmur - GI/Abdominal GI/Abdominal exam: Present: normal bowel sounds, soft, no peritoneal signs. Absent: distended, tenderness - Extremities Exam Extremities exam: Present: warm, radial pulses palpable and symmetrical. Absent : calf tenderness, cyanotic, pedal edema - Neurological Exam Neurological exam: Present: alert, CN II-XII intact, oriented X3, no focal deficits. Absent: pronater drift, facial droop, speech deficit - Skin Skin exam: Present: dry, intact
[2017-07-13] MEDS ORDERED: FLUARIX QUAD 2017-18 36MOS UP/PF 0.5 ML SYRINGE IM ONE (07:51)
[2017-07-13 08:06] VITALS: BP 109/54
[2017-07-13] MEDS: Ondansetron 4 MG/2 ML VIAL IVP PRN (08:13)
== END 2017-07-13 10:25 | disposition home or self-care (01) | DRG 201 ==
LOC: EMEROO 13:58 → 2NNU 13:58 → SUATTDRO 20:17
PROVIDERS: ADMIT Nurse Practitioner Family; ATTEND Internal Medicine

== ENCOUNTER 2017-11-29 09:56 | Inpatient (IN) ==
[2017-11-29] MEDS ORDERED: tiZANidine 4 MG TABLET PO PRN (13:48)
[2017-11-29] MEDS ORDERED: (Rizatriptan Benzoate [Maxalt] 10 MG) PO PRN (13:48)
[2017-11-29] MEDS ORDERED: Ondansetron ODT 4 MG TAB.RAPDIS PO PRN (13:48)
[2017-11-29] MEDS ORDERED: Naloxone 0.4 MG/ML INJ IVP PRN (13:49)
--- NOTE | 2017-11-29 13:58 | Electrophysiology H & P ---
<Kevin Alvarado - Last Filed: 11/29/17 13:55> Date of Encounter: 11/29/17 Time of Encounter: 12:30 Assessment and Plan (1) PAF (paroxysmal atrial fibrillation) Status: Chronic Per EP: Presents today for direct admission for antiarrhythmic initiation of Rythmol 150 mg by mouth every 8 hours. ECG today shows sinus bradycardia at 55 with QRS of 88 ms. Patient compliant with anticoagulation of Xarelto and has not missed any doses in 30 days. Recent lab work stable. Recent echo in nuclear stress test within normal limits. Patient discussed and reviewed with Dr. Obduloi Brand, we will proceed with initiation of antiarrhythmic. Anticipated discharge to home possibly morning. All questions answered. The assessment and plan as outlined above was discussed with the patient and/or family members who expressed understanding and agreement. All questions were answered. History of Present Illness Chief complaint: Afib HPI: Ms. Braksdale is a 62 year old female with a relevant past medical history of GERD, hyperlipidemia, anxiety, depression, atrial fibrillation. Last seen by Dr. Obdulio Brand August 2017 with recommendations for direct admission for antiarrhythmic initiation. Patient presents today reports was finally able to coordinate admission date. She denies any changes in her medical history. She denies any new concerns or complaints. Reports occasional fatigue with palpitations unchanged from baseline. Denies any active bleeding or blood loss. Reports compliance with Xarelto and has not missed any doses the past 30 days. Past Med Surg Social Fam HX - Past Medical History Attestation: Yes The following information was validated with the patient. Source: patient, old records reviewed Medical history: atrial fibrillation, GERD, hyperlipidemia, TIA, other Psychiatric history: depression - Past Surgical History Surgical History: cholecystectomy, other - Social History Smoking Status: Current every day smoker Smokeless Tobacco Status: No Alcohol use: occasionally Drug use: none - Family History Brother Living Status: Still Living Hx Family Cardiac Disorders: Yes (Quad bypass surgery 2013) Hx Family Cancer: Yes (Prostate ca) Hx Family Neurologic Disorders: Yes (migraines) Sister Living Status: Still Living Hx Family Cardiac Disorders: Yes (HTN) Hx Family Endocrine Disorder: Yes (DM) Hx Family Neurologic Disorders: Yes (migrains) Mother Living Status: Hx Family Cardiac Disorders: Yes (Blood clots) Hx Family Endocrine Disorder: Yes (DM) Medications and Allergies Cholecalciferol (D-3) [Vitamin D] 2,000 unit PO DAILY 07/07/16 [History] Pravastatin Sodium [Pravachol] 40 mg PO QPM 07/07/16 [History] Aspirin 81 mg PO DAILY tab.chew 07/09/16 [Rx] Omeprazole [PriLOSEC] 20 mg PO BIDAC 07/11/17 [History] Ondansetron ODT [Zofran ODT] 4 mg PO TID PRN 07/11/17 [History] Pramipexole [Mirapex] 0.25 mg PO HS 07/11/17 [History] Rizatriptan Benzoate [Maxalt] 10 mg PO DAILY PRN 07/11/17 [History] Venlafaxine XR (24 HR) [Effexor Xr] 150 mg PO DAILY 07/11/17 [History] Rivaroxaban [Xarelto] 20 mg PO 1700 #30 tablet 07/13/17 [Rx] Gabapentin [Neurontin] 300 mg PO HS 11/29/17 [History] Metoprolol [Lopressor] 50 mg PO BID 11/29/17 [History] Propafenone [Rhythmol] 150 mg PO Q8H #90 tablet 12/01/17 [Rx] 3 Allergy/AdvReac Type Severity Reaction Status Date / Time Amoxicillin [From Augmentin] Allergy Rash Verified 03/23/16 18:01 clavulanic acid Allergy Rash Verified 03/23/16 18:01 [From Augmentin] prednisone Allergy Rash Verified 07/11/17 14:27 All Systems Review: The remainder of the systems were reviewed and are negative - Constitutional Constitutional: fatigue - Cardiovascular Cardiovascular: as per HPI, palpitations Physical Examination Vital Signs, Last 4 Hours Pulse Resp BP Pulse Ox 11/29/17 10:58 59 16 120/58 97 General: Conversant, No Apparent Distress HEENT: Atraumatic, Normocephaly, Mucus Membranes Moist Neck: No JVD, Normal carotid pulses Cardiac: Reg Rate and Rhythm, Normal S1 and S2, No Murmur Lungs: Normal Breath Sounds, No Wheeze, Rales, Rhonchi Neuro: Alert and responsive, No focal deficits noted Abdomen: Soft, Non-Tender Skin: No rashes noted on visualized skin Musculoskeletal: No Chest Wall Tenderness Extremities: No Clubbing, No Cyanosis, No Edema, Normal Pulses Results Laboratory Tests 07/13/17 11/16/17 05:01 08:54 Hgb 11.6 Hct 35.2 L Creatinine 0.96 Est GFR (Non-Af Amer) 59 L - Imaging and Cardiology Stress Test: report reviewed (Negative nuclear stress test August 2017) Echo: report reviewed (06/2017: Impressions: LVEF 55-60%. Normal LV chamber size , wall thickness and function. Indeterminate diastolic function. Normal right ventricular structure and function. Moderately dilated left atrium. Moderate aortic regurgitation. Mild mitral regurgitation. Mild tricuspid regurgitation. No pulmonary hypertension. Left Ventricular Wall Motion: Rest Echo Findings All wall segments showed normal motion.) - VTE Reasons for not Prescribing Prophylaxis: Not indicated-Anticoagulated or INR therapeutic <Obdulio Brand - Last Filed: 12/01/17 14:44> Date of Encounter: 12/01/17 - Attending Attestation I have personally performed a face to face evaluation on this patient. I have reviewed and agree with the care plan. History and Exam by me shows: Admitted for rythmol initiation as planned. Discussed with pt. she agrees to proceed. History of Present Illness HPI: Ms. Barksdale is a 62 year old female All Systems Review: The remainder of the systems were reviewed and are negative
--- NOTE | 2017-11-29 17:30 | Electrocardiograph Report ---
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
[2017-11-29] MEDS: *HR* Rivaroxaban 10 MG TABLET PO SCH (17:39)
[2017-11-29] MEDS: Gabapentin 300 MG CAPSULE PO SCH (20:36)
[2017-11-30] MEDS ORDERED: Acetaminophen 325 MG TABLET PO PRN (06:29)
--- NOTE | 2017-11-30 08:55 | Electrophysiology ProgressNote ---
Date of Encounter: 11/30/17 Time of Encounter: 09:00 Assessment and Plan (1) PAF (paroxysmal atrial fibrillation) Current Visit: Yes Status: Chronic Per EP: Recent lab work stable. Recent echo in nuclear stress test within normal limits. Antiarrhythmic initiation of Rythmol 150 mg by mouth every 8 hours-- s/ p 3 doses. ECG today shows SR with QRS of 82ms (baseline 88ms). Potential DC tomorrow. Patient compliant with anticoagulation of Xarelto and has not missed any doses in 30 days. Discussion w patient/family: The assessment and plan as outlined above was discussed with the patient and/or family members who expressed understanding and agreement. All questions were answered. Thank you for involving us in the care of your patient. Please call with any questions. Subjective Principal diagnosis: PAF Interval history: Patient denies chest pain, shortness of breath, palpitations. Denies any concerns or complaints. Objective Vital Signs, Last 4 Hours Temp Pulse Resp BP Pulse Ox 11/30/17 07:00 98.1 F 68 18 113/51 96 11/30/17 05:00 98.1 F 64 16 108/53 95 General: Conversant, No Apparent Distress HEENT: Atraumatic, Normocephaly, Mucus Membranes Moist Neck: No JVD, Normal carotid pulses Cardiac: Reg Rate and Rhythm, Normal S1 and S2, No Murmur Lungs: Normal Breath Sounds, No Wheeze, Rales, Rhonchi Neuro: Alert and responsive, No focal deficits noted Abdomen: Soft, Non-Tender Skin: No rashes noted on visualized skin Musculoskeletal: No Chest Wall Tenderness Extremities: No Clubbing, No Cyanosis, No Edema, Normal Pulses Results Active Medications Acetaminophen (Tylenol) 650 mg PO Q6HR PRN PRN Reason: Pain Stop: 06/01/18 06:30 Last Admin: 11/30/17 06:45 Dose: 650 mg Aspirin (Aspirin) 81 mg PO DAILY FLACO Stop: 06/01/18 09:01 Gabapentin (Neurontin) 300 mg PO HS [facility]ACO Stop: 05/31/18 21:01 Last Admin: 11/29/17 20:36 Dose: 300 mg Metoprolol Tartrate (Lopressor) 50 mg PO BID [facility]AC[facility] Stop: 05/31/18 21:01 Last Admin: 11/29/17 20:36 Dose: 50 mg Naloxone HCl (Narcan) 0.4 mg IVP Q2MIN PRN PRN Reason: SEE COMMENTS Stop: 05/31/18 13:50 Omeprazole (Prilosec) 20 mg PO BIDAC FLACO PRN Reason: Protocol Stop: 05/31/18 16:31 Last Admin: 11/29/17 17:39 Dose: 20 mg Ondansetron HCl (Zofran Odt) 4 mg PO TID PRN PRN Reason: Nausea Stop: 05/31/18 13:49 Pharmacy Profile Note (Patient Taking Own Medication) 0 each PO DAILY PRN PRN Reason: Migraine Headache Pramipexole Dihydrochloride (Mirapex) 0.25 mg PO HS [facility] Stop: 05/31/18 21:01 Last Admin: 11/29/17 20:36 Dose: 0.25 mg Propafenone HCl (Rhythmol) 150 mg PO Q8H [facility] Stop: 05/31/18 14:01 Last Admin: 11/30/17 06:46 Dose: 150 mg Rivaroxaban (Xarelto) 20 mg PO 1700 [facility] Stop: 05/31/18 17:01 Last Admin: 11/29/17 17:39 Dose: 20 mg Tizanidine HCl (Zanaflex) 2 mg PO BID PRN PRN Reason: Muscle Spasm Venlafaxine HCl (Effexor Xr) 150 mg PO DAILY [facility] PRN Reason: Protocol Stop: 06/01/18 09:01 Vitamin D (Vitamin D) 2,000 unit PO DAILY [facility] Stop: 06/01/18 09:01 - EKG Interpretation EKG results cardiology: other (Telemetry reviewed with average heart rate the past 12 hours 59, remains sinus bradycardia to sinus rhythm, currently sinus rhythm in the 60s) - VTE Reasons for not Prescribing Prophylaxis: Not indicated-Anticoagulated or INR therapeutic Consult Discharge Plan - Plan Referrals: Juhi Jacobson MD [Primary Care Provider] - 12/07/17 11:15 am
[2017-11-30] MEDS: Cholecalciferol (D-3) 1,000 UNIT TABLET PO SCH (10:44)
[2017-11-30] MEDS: Venlafaxine XR (24 HR) 150 MG CAP.ER.24H PO SCH (10:45)
[2017-11-30] MEDS: Aspirin 81 MG TAB.CHEW PO SCH (10:45)
[2017-11-30] MEDS: *HR* Rivaroxaban 10 MG TABLET PO SCH (18:35)
[2017-11-30] MEDS: Gabapentin 300 MG CAPSULE PO SCH (20:53)
--- NOTE | 2017-11-30 21:02 | Electrocardiograph Report ---
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
[2017-12-01 07:51] VITALS: BP 105/54
[2017-12-01] MEDS: Venlafaxine XR (24 HR) 150 MG CAP.ER.24H PO SCH (08:07)
[2017-12-01] MEDS: Aspirin 81 MG TAB.CHEW PO SCH (08:07)
[2017-12-01] MEDS: Cholecalciferol (D-3) 1,000 UNIT TABLET PO SCH (08:07)
--- NOTE | 2017-12-01 08:34 | Discharge Summary ---
Orders not resulted at time of discharge: Pending orders 12/02/17 06:00 ECG 12 lead ECG [ECG] AM 0600 Date of Encounter: 12/01/17 Time of Encounter: 08:30 - Discharge Diagnosis (1) PAF (paroxysmal atrial fibrillation) Priority: Primary Status: Chronic Comments: History of paroxysmal atrial fibrillation, admitted for antiarrhythmic initiation. - Hospital Course Hospital course: Ms. Barksdale is a 62 year old female with history of paroxysmal atrial fibrillation admitted for antiarrhythmic initiation of Rythmol 150 mg by mouth every 8 hours. During the entire hospital stay patient remained in sinus rhythm with no episodes of A. fib. Status post 6 doses with current QRS 84 ms. Prepping for discharge home today in stable condition. Ambulating without any difficulty. All questions answered. - Time Spent with Patient Total time spent providing and/or coordinating discharge services: Less than 30 minutes - Discharge Medications Prescriptions: Propafenone [Rhythmol] 150 mg PO Q8H #90 tablet Home Medications: Cholecalciferol (D-3) [Vitamin D] 2,000 unit PO DAILY 07/07/16 [History] Pravastatin Sodium [Pravachol] 40 mg PO QPM 07/07/16 [History] Aspirin 81 mg PO DAILY tab.chew 07/09/16 [Rx] Omeprazole [PriLOSEC] 20 mg PO BIDAC 07/11/17 [History] Ondansetron ODT [Zofran ODT] 4 mg PO TID PRN 07/11/17 [History] Pramipexole [Mirapex] 0.25 mg PO HS 07/11/17 [History] Rizatriptan Benzoate [Maxalt] 10 mg PO DAILY PRN 07/11/17 [History] Venlafaxine XR (24 HR) [Effexor Xr] 150 mg PO DAILY 07/11/17 [History] Rivaroxaban [Xarelto] 20 mg PO 1700 #30 tablet 07/13/17 [Rx] Gabapentin [Neurontin] 300 mg PO HS 11/29/17 [History] Metoprolol [Lopressor] 50 mg PO BID 11/29/17 [History] Propafenone [Rhythmol] 150 mg PO Q8H #90 tablet 12/01/17 [Rx] Allergies/Adverse Reactions: 3 Allergy/AdvReac Type Severity Reaction Status Date / Time Amoxicillin [From Augmentin] Allergy Rash Verified 03/23/16 18:01 clavulanic acid Allergy Rash Verified 03/23/16 18:01 [From Augmentin] prednisone Allergy Rash Verified 07/11/17 14:27 Date of admission: 11/29/17 09:56 Primary care physician: Juhi Jacobson Consults: none Discharging clinician: Kevin Alvarado Anticipated date of discharge: 12/01/17 Physical Examination Vital Signs, Last 4 Hours Temp Pulse Resp BP Pulse Ox 12/01/17 07:48 98.1 F 57 16 105/54 93 12/01/17 05:12 98.2 F 65 15 116/65 95 General: Conversant, No Apparent Distress HEENT: Atraumatic, Normocephaly, Mucus Membranes Moist Neck: No JVD, Normal carotid pulses Cardiac: Reg Rate and Rhythm, Normal S1 and S2, No Murmur Lungs: Normal Breath Sounds, No Wheeze, Rales, Rhonchi Neuro: Alert and responsive, No focal deficits noted Abdomen: Soft, Non-Tender Skin: No rashes noted on visualized skin Musculoskeletal: No Chest Wall Tenderness Extremities: No Clubbing, No Cyanosis, No Edema, Normal Pulses - Patient Status Disposition: Home, Self-Care Condition: Good Functional capacity at discharge: independent ambulation Overall status at discharge: patient is back to baseline - Discharge Instructions Instructions: Propafenone (By mouth), Atrial Fibrillation (DC) Follow Up With: Juhi Jacobson MD [Primary Care Provider] - 12/07/17 11:15 am - Diet and Activity Diet: low fat, low cholesterol, low salt diet - VTE Reasons for not Prescribing Prophylaxis: Not indicated-Anticoagulated or INR therapeutic
--- NOTE | 2017-12-02 16:51 | Electrocardiograph Report ---
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
== END 2017-12-01 11:40 | disposition home or self-care (01) | DRG 201 ==
LOC: 2SOUTHHOLD 09:56 → 2NENU 19:53
PROVIDERS: ADMIT Internal Medicine Clinical Cardiac Electrophysiology; ATTEND Internal Medicine Clinical Cardiac Electrophysiology

== ENCOUNTER 2018-06-16 20:37 | Inpatient (IN) ==
[2018-06-16] MEDS ORDERED: Amiodarone Premix 360 MG/200 ML BAG IVC ONE ×2 (20:43→20:57)
[2018-06-16] MEDS ORDERED: Amiodarone Premix 150 MG/100 ML BAG IVPB ONE ×2 (20:43→20:57)
[2018-06-16] MEDS ORDERED: 0.9 % Sodium Chloride 1,000 ML IVC ONE ×2 (20:45→21:27)
--- NOTE | 2018-06-16 20:53 | Emergency Department Note ---
Disposition Clinical Impression: Ventricular tachycardia, SOB (shortness of breath), Weakness, DRE (acute kidney injury), Hypocalcemia Disposition: Admitted As Inpatient Condition: Critical General Adult HPI - General Chief complaint: ED Arrhythmia/Palpitations Stated complaint: "V tach" Time Seen by Provider: 06/16/18 20:43 Source: patient, EMS Limitations: no limitations - History of Present Illness Pain Scale: 0 - Related Data Home Medications Medication Instructions Recorded Confirmed Cholecalciferol (D-3) [Vitamin D] 2,000 unit PO DAILY 07/07/16 06/17/18 Pravastatin Sodium [Pravachol] 40 mg PO QPM 07/07/16 06/17/18 Omeprazole [PriLOSEC] 20 mg PO DAILY 07/11/17 06/17/18 Rizatriptan Benzoate [Maxalt] 10 mg PO DAILY PRN 07/11/17 06/17/18 Venlafaxine XR (24 HR) [Effexor Xr] 150 mg PO DAILY 07/11/17 06/17/18 Gabapentin [Neurontin] 300 mg PO HS 11/29/17 06/17/18 Metoprolol [Lopressor] 50 mg PO BID 11/29/17 06/17/18 Acetaminophen [Tylenol] 500 mg PO Q6HR PRN 05/09/18 06/17/18 Calcium Carbonate/Vitamin D3 1 each PO BID 05/09/18 06/17/18 [Caltrate 600 + D Soft Chew Tab] Pramipexole [Mirapex] 0.5 mg PO HS 05/09/18 06/17/18 Zolpidem [Ambien] 5 mg PO HS PRN 05/09/18 06/17/18 Rivaroxaban [Xarelto] 20 mg PO DAILY 06/17/18 06/17/18 Previous Rx's Medication Instructions Recorded Aspirin 81 mg PO DAILY tab.chew 07/09/16 Amiodarone [Cordarone] 200 mg PO BID 7 Days #14 tablet 06/20/18 Amiodarone [Cordarone] 200 mg PO DAILY 30 Days #30 tablet 06/20/18 Allergies Allergy/AdvReac Type Severity Reaction Status Date / Time Amoxicillin [From Augmentin] Allergy Rash Verified 03/23/16 18:01 clavulanic acid Allergy Rash Verified 03/23/16 18:01 [From Augmentin] prednisone Allergy Rash Verified 07/11/17 14:27 Past Medical History - Past Medical History Medical history: Reports: atrial fibrillation, COPD, GERD, hyperlipidemia, TIA, other Surgical history: Reports: cholecystectomy, other Psychiatric history: Reports: anxiety, depression - Social History Smoking Status: Former smoker Smokeless Tobacco Status: No Alcohol use: Reports: none Drug use: Reports: none Physical Exam - General Limitations: no limitations General appearance: alert, in no apparent distress Course Vital Signs Temperature 98.2 F 06/16/18 20:38 Pulse Rate 167 06/16/18 20:38 Respiratory Rate 18 06/16/18 20:38 Blood Pressure 101/81 06/16/18 20:38 O2 Sat by Pulse Oximetry 96 06/16/18 20:38 Temperature 98.4 F 06/20/18 16:04 Pulse Rate 126 06/20/18 16:04 Respiratory Rate 16 06/20/18 16:04 Blood Pressure 126/87 06/20/18 16:04 O2 Sat by Pulse Oximetry 96 06/20/18 16:04 Oxygen Delivery Oxygen Delivery Nasal Cannula Medical Decision Making - Lab Data Result diagrams: 06/20/18 04:43 06/20/18 04:43 Lab Results 06/16/18 06/16/18 06/16/18 Range/Units 21:42 21:58 21:58 WBC 11.7 H (4.3-11.1) K/mcL RBC 3.80 L (3.82-4.97) M/mcL Hgb 11.1 L (11.5-15.4) g/dL Hct 34.4 L (35.3-44.9) % MCV 90.5 (83.0-100.0) fL MCH 29.2 (28.0-33.3) pg MCHC 32.3 (31.6-35.5) g/dL RDW 17.3 H (11.5-14.5) % Plt Count 255 (140-400) K/mcL MPV 9.7 (9.4-12.4) fL Immature Gran % 1.3 (0-4) % Seg Neutrophils % 72.7 % Lymphocytes % 18.3 % Monocytes % 6.8 % Eosinophils % 0.6 % Basophils % 0.3 % Neutrophils # 8.5 (1.6-8.9) K/mcL Lymphocytes # 2.1 (0.6-4.6) K/mcL Monocytes # 0.8 (0.0-1.3) K/mcL Eosinophils # 0.1 (0.0-0.6) K/mcL Basophils # 0.0 (0.0-0.2) K/mcL PT 27.9 H (9.4-12.1) Seconds INR 2.5 APTT 38.9 H (26.0-36.0) Seconds Sodium (136-145) mEq/L Potassium (3.5-5.1) mEq/L Chloride (98-107) mEq/L Carbon Dioxide (23-29) mEq/L BUN (8-23) mg/dL Creatinine (0.60-1.20) mg/dL Est GFR ( Amer) (> 60) Est GFR (Non-Af Amer) (> 60) BUN/Creatinine Ratio (6-26) Glucose (70-105) mg/dL POC Glucose (70-99) mg/dL Calculated Osmolality (280-300) Calcium (8.6-10.3) mg/dL Magnesium (1.6-2.6) mg/dL Troponin I (< 0.04) ng/mL TSH (0.340-5.600) mcIU/mL Specimen Rejected Contaminated 06/16/18 06/17/18 Range/Units 21:58 00:40 WBC (4.3-11.1) K/mcL RBC (3.82-4.97) M/mcL Hgb (11.5-15.4) g/dL Hct (35.3-44.9) % MCV (83.0-100.0) fL MCH (28.0-33.3) pg MCHC (31.6-35.5) g/dL RDW (11.5-14.5) % Plt Count (140-400) K/mcL MPV (9.4-12.4) fL Immature Gran % (0-4) % Seg Neutrophils % % Lymphocytes % % Monocytes % % Eosinophils % % Basophils % % Neutrophils # (1.6-8.9) K/mcL Lymphocytes # (0.6-4.6) K/mcL Monocytes # (0.0-1.3) K/mcL Eosinophils # (0.0-0.6) K/mcL Basophils # (0.0-0.2) K/mcL PT (9.4-12.1) Seconds INR APTT (26.0-36.0) Seconds Sodium 137 (136-145) mEq/L Potassium 4.2 (3.5-5.1) mEq/L Chloride 111 H (98-107) mEq/L Carbon Dioxide 13 L (23-29) mEq/L BUN 14 (8-23) mg/dL Creatinine 1.32 H (0.60-1.20) mg/dL Est GFR ( Amer) 49 L (> 60) Est GFR (Non-Af Amer) 40 L (> 60) BUN/Creatinine Ratio 11 (6-26) Glucose 199 H (70-105) mg/dL POC Glucose 136 H (70-99) mg/dL Calculated Osmolality 290 (280-300) Calcium 8.2 L (8.6-10.3) mg/dL Magnesium 1.8 (1.6-2.6) mg/dL Troponin I < 0.03 (< 0.04) ng/mL TSH 3.508 (0.340-5.600) mcIU/mL Specimen Rejected Critical Care Time Critical Care Time: Yes Total Critical Care Time: 60 Attestation: The high probability of a clinically significant, sudden or life threatening deterioration of the [] system(s) required my full and direct attention, intervention and personal management. The aggregate critical care time was [] minutes. This time is in addition to time spent performing reported procedures but includes the following: [] Data Review and interpretation [] Patient assessment and monitoring of vital signs [] Documentation [] Medication orders and management Attestation Statement - Attestation Attestation: I examined this patient and my medical decision-making was reviewed with the Resident Physician. I agree with the documented findings, disposition and treatment plan as described except to the extent set forth below. [id number] time provided Patient arrives by EMS. She complains of palpitations without chest pain. History of atrial fibrillation for which she takes xarelto. She appears in no acute distress on exam. Wide-complex tachycardia identified on ECG and rhythm strip. I reviewed her previous ECG which shows an irregularly irregular narrow complex rhythm without pre-existing bundle-branch block or preexcitation. Concern for ventricular tachycardia. Patient is stable so we will attempt a trial of IV amiodarone. We will elect to pursue electrical cardioversion should this fail or should the patient become unstable. 21:15: The patient became diaphoretic, hypotensive with a systolic pressure of 60 mmHg and complained of nausea. Elective cardioversion was undertaken. Patient tolerated procedure well
--- NOTE | 2018-06-16 21:01 | Emergency Department Note ---
Disposition Clinical Impression: Ventricular tachycardia, SOB (shortness of breath), Weakness, DRE (acute kidney injury), Hypocalcemia Disposition: Admitted As Inpatient Condition: Critical Referrals: Juhi Jacobson MD [Primary Care Provider] - Forms: ED Satisfaction Letter Time of Disposition: 22:44 General Adult HPI - General Chief complaint: ED Arrhythmia/Palpitations Stated complaint: "V tach" Time Seen by Provider: 06/16/18 20:43 Source: patient, family, EMS Mode of arrival: EMS Limitations: no limitations Nursing Notes Reviewed: Yes Vital Signs Reviewed: Yes - History of Present Illness HPI Narrative: Patient is a 63-year-old female presenting with a dysrhythmia. Patient has no history significant for atrial fibrillation, COPD, hypertension and hyperlipidemia. Patient states that 2 hours prior to arrival she began to have shortness of breath as well as associated lightheaded and dizziness with palpitations and feeling of heart racing out of her chest. She denies any chest pain. She states that this vigorously got worse and she started to walk from her couch to her bathroom. She denies chest pain during exertion. Patient does state that she had had cardioversion for atrial fibrillation 1 month ago. Her fruit inspector is Dr. Obdulio Brand. She states that she is currently on Cordero. She was diagnosed with atrial fibrillation in June 2017. She states that she is currently symptomatically to her atrial fibrillation. She denies any history of ACS, left heart catheter or stent placement. She currently denies any chest pain on arrival. Per EMS, in route, EKG performed showed patient to be in ventricular tachycardia with rate in the 160s, blood pressure was noted to be 90/60 at that point in time. IV access was unable to be obtained. Patient denies history of having ventricular tachycardia in the past. Pain Scale: 0 - Related Data Home Medications Medication Instructions Recorded Confirmed Cholecalciferol (D-3) [Vitamin D] 2,000 unit PO DAILY 07/07/16 05/25/18 Pravastatin Sodium [Pravachol] 40 mg PO QPM 07/07/16 05/25/18 Omeprazole [PriLOSEC] 20 mg PO DAILY 07/11/17 05/25/18 Rizatriptan Benzoate [Maxalt] 10 mg PO DAILY PRN 07/11/17 05/25/18 Venlafaxine XR (24 HR) [Effexor Xr] 150 mg PO DAILY 07/11/17 05/25/18 Gabapentin [Neurontin] 300 mg PO HS 11/29/17 05/25/18 Metoprolol [Lopressor] 50 mg PO BID 11/29/17 05/25/18 Acetaminophen [Tylenol] 500 mg PO Q6HR PRN 05/09/18 05/25/18 Calcium Carbonate/Vitamin D3 1 each PO BID 05/09/18 05/25/18 [Caltrate 600 + D Soft Chew Tab] Pramipexole [Mirapex] 0.5 mg PO HS 05/09/18 05/25/18 Zolpidem [Ambien] 5 mg PO HS 05/09/18 05/25/18 Propafenone HCl [Rythmol Sr] 225 mg PO TID 05/25/18 05/25/18 Previous Rx's Medication Instructions Recorded Aspirin 81 mg PO DAILY tab.chew 07/09/16 Rivaroxaban [Xarelto] 20 mg PO 1700 #30 tablet 07/13/17 Allergies Allergy/AdvReac Type Severity Reaction Status Date / Time Amoxicillin [From Augmentin] Allergy Rash Verified 03/23/16 18:01 clavulanic acid Allergy Rash Verified 03/23/16 18:01 [From Augmentin] prednisone Allergy Rash Verified 07/11/17 14:27 All systems ED: reviewed and negative except as stated. Review of Systems: As Per HPI Constitutional: Denies: fever, chills ENT ED: Denies: congestion Cardiovascular: Reports: palpitations, dyspnea on exertion. Denies: chest pain , orthopnea, edema, syncope, paroxysmal nocturnal dyspnea Respiratory: Reports: dyspnea. Denies: cough, wheezes, hemoptysis, sputum production Gastrointestinal: Denies: abdominal pain, nausea, vomiting, diarrhea, constipation Genitourinary: Denies: urgency, dysuria Musculoskeletal: Denies: back pain Integumentary: Denies: rash Neurological: Reports: other (Lightheaded and dizziness). Denies: headache, weakness, numbness, paresthesias, confusion Endocrine: Denies: fatigue Hematological/Lymphatic: Denies: easy bleeding, easy bruising Past Medical History - Past Medical History Medical history: Reports: atrial fibrillation, COPD, GERD, hyperlipidemia, TIA, other Surgical history: Reports: cholecystectomy, other Psychiatric history: Reports: anxiety, depression - Social History Smoking Status: Former smoker Smokeless Tobacco Status: No Alcohol use: Reports: none Drug use: Reports: none Physical Exam - General Limitations: no limitations General appearance: alert, in no apparent distress, other (Patient was seen and examined on arrival, patient conversational and in no apparent distress, no chest pain during physical exam. Alert and oriented, no confusion) - Head Head exam: atraumatic, normocephalic, normal inspection - Eye Eye exam: Present: normal appearance, PERRL, EOMI - ENT ENT exam: normal exam, normal oropharynx, mucous membranes moist - Neck Neck exam: Present: normal inspection, full ROM, trachea midline - Chest Chest inspection: Present: normal inspection, symmetric chest wall rise - Respiratory Respiratory exam: Present: normal lung sounds bilaterally - Cardiovascular Cardiovascular exam: Present: tachycardia (With rate of 167 at bedside, noted to be ventricular tachycardia) - Abdominal Exam Abdominal exam: Present: soft, Non-Tender. Absent: tenderness, distention, guarding, rebound, rigidity - Extremities Exam Extremities exam: Present: normal inspection, full ROM. Absent: tenderness, pedal edema - Expanded Lower Extremity Exam Neurovascular/Tendon exam: Absent: motor deficit, sensory deficit, tendon deficit - Neurological Exam Neurological exam: Present: alert, oriented X3, CN II-XII intact - Psychiatric Psychiatric exam: Present: normal affect, normal mood - Skin Skin exam: Present: warm, dry, intact, normal color Course Course Narrative: Were ordered dysrhythmia workup including CBC, BMP, troponin, EKG and chest x- ray. We will also get a TSH, magnesium. This point in time disposition is admission pending workup. Vital Signs Temperature 98.2 F 06/16/18 20:38 Pulse Rate 167 06/16/18 20:38 Respiratory Rate 18 06/16/18 20:38 Blood Pressure 101/81 06/16/18 20:38 O2 Sat by Pulse Oximetry 96 06/16/18 20:38 Temperature 98.2 F 06/16/18 20:38 Pulse Rate 61 06/16/18 22:05 Respiratory Rate 14 06/16/18 21:45 Blood Pressure 77/38 06/16/18 22:05 O2 Sat by Pulse Oximetry 99 06/16/18 22:05 Oxygen Delivery Oxygen Delivery Nasal Cannula Medical Decision Making - [facility] Narrative Medical decision making narrative: Patient is a 63-year-old female presenting with dysrhythmia. Patient called EMS and she began to have increasing lightheaded and dizziness with associated short of breath and palpitations. Patient has vital history for atrial fibrillation, currently on Xarelto fruit inspector is Dr. Brand. She has a history of COPD, hypertension and hyperlipidemia. Upon EMS arrival, patient was found to be in ventricular tachycardia with a rate in the 160s. IV access was unable to be obtained, blood pressure was 90/60. Upon arrival to the emergency department, Place of the patient's chest, IV access is being initiate patient had EKG and rhythm strip which showed patient to be in ventricular tachycardia, however appears stable at this point in time. She is alert and oriented 3 conversational in no apparent distress. Patient currently denying any chest pain at this point in time. Continues have slight soreness of breath. At this point in time, patient is not a candidate for cardioversion as patient is stable. Will initiate amiodarone bolus of 150 with amiodarone drip. We will also get routine labs, chest x-ray and EKG. Will start this, and then reevaluate and discuss with patient. Consult to cardiology at this point in time 2110, continues recommend amiodarone and admission for hospitalist at this point in time. EKG performed on arrival at 2041 shows ventricular rhythm of 174, patient appears to be in sustained ventricular tachycardia. 2119: Patient states diaphoretic, increasing shortness of breath, with generalized weakness. At this point in time, patient was seen and examined, states that symptoms have gradually gotten worse. Blood pressure is currently 60/40 patient clinically unstable with diaphoresis and difficulty answering questions. Patient was verbally consented to perform synchronized cardioversion. At this point in time and the decision was made to cardiovert the patient. Patient was given 100 g of fentanyl and 2mg of Versed for procedural sedation prior to cardioversion. Synchronized cardioversion was performed at 200 J. One shock was delivered and patient resumed to normal sinus rhythm with a rate of 71 bpm. We will repeat EKG at this time. Repeat EKG following cardioversion performed at 2134 shows ventricular rate of 69, regular rhythm, normal axis, NH interval at 231, QT interval at 45, QTC of 488. No delta wave noted, no ST elevation or depression Upon reevaluation, at 2219 patient is sitting in bed alert and oriented, no longer diaphoretic and appears to be normal sinus rhythm on the monitor with heart rate of 67 bpm. Blood pressure is 90/72. Bedside ultrasound was performed at 2230 which showed no evidence of pericardial effusion. CBC reveals a slight leukocytosis at 11.7, hemoglobin slightly low, 11.1 but stable. Chest x-ray shows mention of cardiomegaly with possible pericardial effusion, bedside ultrasound shows no pericardial effusion at this time. Patient had a CAT, creatinine slightly elevated at this point in time. Calcium is slightly low will replenish with 1 of calcium gluconate at this time. Troponin is negative. Continued hydration with 2 L normal saline at this point. Continuing amiodarone 1 mg/m. At this point in time, patient is recommended to be admitted to the ICU for further evaluation and management. Patient hospitalist at this point in time. Discussed patient with hospitalist, Dr. Hanson has accept patient for ICU with no recommendations at this point at 2243. - Medical Records Medical records reviewed: Yes I reviewed the patient's medical records. - Lab Data Lab results reviewed: Yes I reviewed the patient's lab results. Result diagrams: 06/16/18 21:58 06/16/18 21:58 Lab Results 06/16/18 06/16/18 06/16/18 Range/Units 21:42 21:58 21:58 WBC 11.7 H (4.3-11.1) K/mcL RBC 3.80 L (3.82-4.97) M/mcL Hgb 11.1 L (11.5-15.4) g/dL Hct 34.4 L (35.3-44.9) % MCV 90.5 (83.0-100.0) fL MCH 29.2 (28.0-33.3) pg MCHC 32.3 (31.6-35.5) g/dL RDW 17.3 H (11.5-14.5) % Plt Count 255 (140-400) K/mcL MPV 9.7 (9.4-12.4) fL Immature Gran % 1.3 (0-4) % Seg Neutrophils % 72.7 % Lymphocytes % 18.3 % Monocytes % 6.8 % Eosinophils % 0.6 % Basophils % 0.3 % Neutrophils # 8.5 (1.6-8.9) K/mcL Lymphocytes # 2.1 (0.6-4.6) K/mcL Monocytes # 0.8 (0.0-1.3) K/mcL Eosinophils # 0.1 (0.0-0.6) K/mcL Basophils # 0.0 (0.0-0.2) K/mcL PT 27.9 H (9.4-12.1) Seconds INR 2.5 APTT 38.9 H (26.0-36.0) Seconds Sodium (136-145) mEq/L Potassium (3.5-5.1) mEq/L Chloride (98-107) mEq/L Carbon Dioxide (23-29) mEq/L BUN (8-23) mg/dL Creatinine (0.60-1.20) mg/dL Est GFR ( Amer) (> 60) Est GFR (Non-Af Amer) (> 60) BUN/Creatinine Ratio (6-26) Glucose (70-105) mg/dL Calculated Osmolality (280-300) Calcium (8.6-10.3) mg/dL Magnesium (1.6-2.6) mg/dL Troponin I (< 0.04) ng/mL Specimen Rejected Contaminated 06/16/18 Range/Units 21:58 WBC (4.3-11.1) K/mcL RBC (3.82-4.97) M/mcL Hgb (11.5-15.4) g/dL Hct (35.3-44.9) % MCV (83.0-100.0) fL MCH (28.0-33.3) pg MCHC (31.6-35.5) g/dL RDW (11.5-14.5) % Plt Count (140-400) K/mcL MPV (9.4-12.4) fL Immature Gran % (0-4) % Seg Neutrophils % % Lymphocytes % % Monocytes % % Eosinophils % % Basophils % % Neutrophils # (1.6-8.9) K/mcL Lymphocytes # (0.6-4.6) K/mcL Monocytes # (0.0-1.3) K/mcL Eosinophils # (0.0-0.6) K/mcL Basophils # (0.0-0.2) K/mcL PT (9.4-12.1) Seconds INR APTT (26.0-36.0) Seconds Sodium 137 (136-145) mEq/L Potassium 4.2 (3.5-5.1) mEq/L Chloride 111 H (98-107) mEq/L Carbon Dioxide 13 L (23-29) mEq/L BUN 14 (8-23) mg/dL Creatinine 1.32 H (0.60-1.20) mg/dL Est GFR ( Amer) 49 L (> 60) Est GFR (Non-Af Amer) 40 L (> 60) BUN/Creatinine Ratio 11 (6-26) Glucose 199 H (70-105) mg/dL Calculated Osmolality 290 (280-300) Calcium 8.2 L (8.6-10.3) mg/dL Magnesium 1.8 (1.6-2.6) mg/dL Troponin I < 0.03 (< 0.04) ng/mL Specimen Rejected - Radiology Data Radiology results reviewed: Yes I reviewed the patient's radiology results. Chest X-Ray 06/16/18 20:43 IMPRESSION: Enlarged cardiomediastinal silhouette may represent cardiomegaly and/or pericardial effusion. This may also be due to low lung volumes. No focal consolidation, pneumothorax, or significant pleural effusion. D/ / 06/16/2018 21:39:23 Arnaud Daniel MD / [facility] Interpreting Provider: Arnaud Daniel MD - EKG Data EKG #1 EKG attestation: Yes I reviewed and interpreted this EKG. EKG results narrative: EKG performed on arrival at 2041 shows ventricular rhythm of 174, patient appears to be in sustained ventricular tachycardia. Repeat EKG following cardioversion performed at 2134 shows ventricular rate of 69, regular rhythm, normal axis, NH interval at 231, QT interval at 45, QTC of 488. No delta wave noted, no ST elevation or depression When compared to previous EKG there are: changes noted S.B.A.R. - S.B.A.R. Situation: Demographics, MOA Background: Presenting Complaint, Relevant PMH, Meds, & Allergies Assessment: Vital Signs, Course and respsone to treatment, Exam Concerns, Patient/Family Expectation, Pertinant Lab Results, Outstanding Labs Recommendation: Barrier(s) to disposition, Recommendation based on pending studies, treatments, or consults Isaak Report Given to: hospitalist, Dr. Syed Mulligan Repor Time: 22:44 (accepted for ICU placement)
[2018-06-16] MEDS ORDERED: *HR* Midazolam HCl 2 MG/2 ML VIAL IVP ONE (21:12)
[2018-06-16] MEDS ORDERED: *HR* FentaNYL (PF) 100 MCG/2 ML VIAL IVP ONE (21:12)
[2018-06-16] MEDS ORDERED: *HR* FentaNYL (PF) 100 MCG/2 ML VIAL ONE (21:14)
[2018-06-16] MEDS ORDERED: *HR* Midazolam HCl 5 MG/5 ML VIAL IVP ONE (21:14)
[2018-06-16 22:13] LABS: Basophils % 0.3 %; Eosinophils # 0.1 K/mcL (0.0-0.6); Eosinophils % 0.6 %; Hematocrit 34.4 % (35.3-44.9); Immature Granulocytes % 1.3 % (0-4); Lymphocytes # 2.1 K/mcL (0.6-4.6); Lymphocytes % 18.3 %; Mean Corpuscular HGB Conc 32.3 g/dL (31.6-35.5); Mean Corpuscular Hemoglobin 29.2 pg (28.0-33.3); Mean Corpuscular Volume 90.5 fL (83.0-100.0); Mean Platelet Volume 9.7 fL (9.4-12.4); Monocytes # 0.8 K/mcL (0.0-1.3); Monocytes % 6.8 %; Neutrophils # 8.5 K/mcL (1.6-8.9); Platelet Count 255 K/mcL (140-400); Red Cell Distribution Width 17.3 % (11.5-14.5); Segmented Neutrophils % 72.7 %
[2018-06-16 22:14] LABS: Hemoglobin 11.1 g/dL (11.5-15.4)
[2018-06-16 22:19] LABS: INR 2.5; Prothrombin Time 27.9 Seconds (9.4-12.1)
[2018-06-16 22:21] LABS: Activated Partial Thrombo Time 38.9 Seconds (26.0-36.0)
[2018-06-16 22:36] LABS: BUN/Creatinine Ratio 11 (6-26); Blood Urea Nitrogen 14 mg/dL (8-23); Calcium 8.2 mg/dL (8.6-10.3); Carbon Dioxide 13 mEq/L (23-29); Chloride 111 mEq/L (98-107); Glucose 199 mg/dL (70-105); Magnesium 1.8 mg/dL (1.6-2.6); Osmolality,Calculated 290 (280-300); Potassium 4.2 mEq/L (3.5-5.1); Sodium 137 mEq/L (136-145); Troponin I < 0.03 ng/mL (< 0.04); eGFR For Non-African Americans 40 (> 60)
[2018-06-16 22:50] LABS: Thyroid Stimulating Hormone 3.508 mcIU/mL (0.340-5.600)
--- NOTE | 2018-06-17 00:23 | Internal Med History&Physical ---
<Sheldon Bennett - Last Filed: 06/17/18 02:12> Date of Encounter: 06/17/18 Time of Encounter: 00:23 Internal Medicine - H&P: HPI Chief complaint: Increased heart rate Admitted From: Home History of present illness: Ms. Barksdale is a 63 year old female with a past medical history of atrial fibrillation on Xarelto, COPD, hyperlipidemia, TIA, and obesity who presented from home complaining of heart rate up to 168, shortness of breath, nausea, and weakness for the past 1 day. Patient reports a history of cardioversion that only lasted 8 days in the past and denies history of cardiac ablation. She denies recent fever, chills, chest pain, cough, dysuria, hematuria, or edema, or recent illnesses. Patient went into ventricular tachycardia in the emergency room, was hypotensive, and required cardioversion. Patient was started on amiodarone drip and transferred to ICU for closer monitoring. She is now back in sinus rhythm and reports feeling much improved. Past Med Surg Social Fam HX - Past Medical History Medical history: atrial fibrillation, COPD, GERD, hyperlipidemia, TIA, other Additional medical history: MIGRAINES, ANXIETY,DEPRESSION,SLEEP PROBLEMS, Psychiatric history: anxiety, depression - Past Surgical History Surgical History: cholecystectomy, other Additional surgical history: Breast biopsy 1989,tubal - Social History Smoking Status: Former smoker Smokeless Tobacco Status: No Alcohol use: none Drug use: none Current living situation: Home, With Family () Activity Level: Independent ambulation - Family History Brother Living Status: Still Living Hx Family Cardiac Disorders: Yes (Quad bypass surgery 2013) Hx Family Cancer: Yes (Prostate ca) Hx Family Neurologic Disorders: Yes (migraines) Sister Living Status: Still Living Hx Family Cardiac Disorders: Yes (HTN) Hx Family Endocrine Disorder: Yes (DM) Hx Family Neurologic Disorders: Yes (migrains) Mother Living Status: Hx Family Cardiac Disorders: Yes (Blood clots) Hx Family Endocrine Disorder: Yes (DM) Father Hx Family Endocrine Disorder: Yes (DM) Internal Medicine - H&P: Meds Cholecalciferol (D-3) [Vitamin D] 2,000 unit PO DAILY 07/07/16 [History] Pravastatin Sodium [Pravachol] 40 mg PO QPM 07/07/16 [History] Aspirin 81 mg PO DAILY tab.chew 07/09/16 [Rx] Omeprazole [PriLOSEC] 20 mg PO DAILY 07/11/17 [History] Rizatriptan Benzoate [Maxalt] 10 mg PO DAILY PRN 07/11/17 [History] Venlafaxine XR (24 HR) [Effexor Xr] 150 mg PO DAILY 07/11/17 [History] Gabapentin [Neurontin] 300 mg PO HS 11/29/17 [History] Metoprolol [Lopressor] 50 mg PO BID 11/29/17 [History] Acetaminophen [Tylenol] 500 mg PO Q6HR PRN 05/09/18 [History] Calcium Carbonate/Vitamin D3 [Caltrate 600 + D Soft Chew Tab] 1 each PO BID [History] Pramipexole [Mirapex] 0.5 mg PO HS 05/09/18 [History] Zolpidem [Ambien] 5 mg PO HS PRN 05/09/18 [History] Propafenone HCl [Rythmol Sr] 225 mg PO TID 05/25/18 [History] Rivaroxaban [Xarelto] 20 mg PO DAILY 06/17/18 [History] 3 Allergy/AdvReac Type Severity Reaction Status Date / Time Amoxicillin [From Augmentin] Allergy Rash Verified 03/23/16 18:01 clavulanic acid Allergy Rash Verified 03/23/16 18:01 [From Augmentin] prednisone Allergy Rash Verified 07/11/17 14:27 All Systems PM: A 10-system review of systems was performed and is negative for pertinent findings except as documented above in the HPI. - Constitutional Constitutional: fatigue, weakness, no anorexia, no chills, no fever(s), no falls , no weight gain, no weight loss - EENT Eyes: no blurry vision, no change in vision Nose, mouth and throat: no nasal congestion, no sinus pain - Cardiovascular Cardiovascular ROS IM: dyspnea, irregular heart rhythm, palpitations, no chest pain, no dyspnea on exertion, no edema - Respiratory Respiratory: dyspnea, no cough, no chest congestion - Gastrointestinal Gastrointestinal: nausea, no abdominal pain, no diarrhea, no heartburn, no vomiting - Genitourinary Genitourinary: no dysuria, no flank pain, no hematuria, no urinary frequency, no urinary urgency - Musculoskeletal Musculoskeletal ROS IM: no numbness, no tingling - Integumentary Integumentary IM: no erythema, no rash - Neurological Neurological ROS: weakness, no dizziness, no headache(s), no numbness - Psychiatric Psychiatric: anxiety, no confusion, no depression - Endocrine Endocrine IM: fatigue, no polydipsia, no polyphagia, no polyuria - Hematologic/Lymphatic Hematologic/Lymphatic: no easy bleeding, no easy bruising - Constitutional Vitals: Temp Pulse Resp BP Pulse Ox 98.2 F 57 16 78/53 100 06/16/18 20:38 06/16/18 23:46 06/16/18 23:46 06/16/18 23:46 06/16/18 23:46 General appearance: Present: cooperative, pleasant, no acute distress, answers questions appropriately Exam: Conversant - Head Head exam: Present: atraumatic, normocephalic - Eye Eye exam: Present: PERRL, conjuntiva pink, sclera anicteric Pupils: Present: PERRL - ENT ENT exam: Present: mucous membranes dry, normal oropharynx - Neck Neck exam general surgery: Present: supple, trachea midline. Absent: lymphadenopathy - Respiratory Respiratory exam: Present: CTAB. Absent: accessory muscle use, rales, rhonchi, wheezes - Cardiovascular Cardiovascular exam: Present: RRR, +S1, +S2. Absent: diastolic murmur, gallop, rubs, systolic murmur - GI/Abdominal GI/Abdominal exam: Present: normal bowel sounds, soft, no peritoneal signs. Absent: distended, guarding, tenderness - Extremities Exam Extremities exam: Present: normal capillary refill, warm, radial pulses palpable and symmetrical. Absent: calf tenderness, cyanotic, pedal edema - Back Exam Back exam: Present: normal inspection. Absent: paraspinal tenderness, tenderness - Neurological Exam Neurological exam: Present: alert, CN II-XII intact, oriented X3, no focal deficits. Absent: pronater drift, facial droop - Psychiatric Psychiatric exam: Present: anxious, normal affect - Skin Skin exam: Present: dry, intact, normal color, warm Internal Med - H&P Results - Labs CBC & Chem 7: 06/16/18 21:58 06/16/18 21:58 - Pulse Oximetry Interpretation Digit-Finger O2 Sat by Pulse Oximetry: 96 (On room air) - EKG Data -: EKG Interpreted by Myself EKG shows normal: sinus rhythm (Repeat EKG shows sinus rhythm heart rate 69, prolonged QT interval, no signs of ischemia) Rate: tachycardia (Initial EKG shows wide complex ventricular tachycardia rate 174) - Assessment and plan (1) Ventricular tachycardia Current Visit: Yes Status: Resolved Assessment and plan: Patient went into ventricular tachycardia in the emergency room, was hypotensive , and required cardioversion. Patient was started on amiodarone drip TSH and magnesium levels within normal limits She is now back in sinus rhythm and reports feeling much improved. Repeat EKG pending Patient may need left heart catheterization to rule out ischemia, defer to cardiology NPO after midnight (2) PAF (paroxysmal atrial fibrillation) Current Visit: Yes Status: Chronic Assessment and plan: CHADS-VASc Score 4 points (age 63, female, history of TIA) She is currently back in normal sinus rhythm Continue amiodarone drip Hold home Metoprolol, Rythmol and Xarelto until seen by cardiology, patient may need cardiac intervention (3) Anticoagulant long-term use Current Visit: Yes Status: Chronic Assessment and plan: INR 2.5, no signs of bleeding Hold Xarelto, continue heparin subcutaneous TID for DVT prophylaxis, resume Xarelto once cleared by cardiology Repeat INR in AM (4) DRE (acute kidney injury) Current Visit: Yes Status: Acute Assessment and plan: Serum creatinine 1.32 Continue IV fluids Avoid nephrotoxins Continue monitoring (5) COPD (chronic obstructive pulmonary disease) Current Visit: Yes Status: Acute Assessment and plan: Without acute exacerbation Patient was a former smoker Continue bronchodilators as needed Qualifiers: COPD type: unspecified COPD Qualified Code(s): J44.9 - Chronic obstructive pulmonary disease, unspecified (6) HLD (hyperlipidemia) Current Visit: No Status: Chronic Assessment and plan: Continue home statin Qualifiers: Hyperlipidemia type: unspecified Qualified Code(s): E78.5 - Hyperlipidemia , unspecified (7) Obesity (BMI 30.0-34.9) Current Visit: No Status: Chronic Assessment and plan: BMI 31.5, lifestyle modification (8) DVT prophylaxis Current Visit: Yes Status: Acute Assessment and plan: Hold Xarelto, continue heparin subcutaneous TID for DVT prophylaxis, resume Xarelto once cleared by cardiology (9) CKD (chronic kidney disease) stage 3, GFR 30-59 ml/min Current Visit: Yes Status: Chronic Assessment and plan: Baseline GFR 55 Avoid nephrotoxins - Time Spent With Patient Total time spent is greater than 50% in coordination of care (as documented) at patient's floor/unit and/or counseling patient: <Alex Meade - Last Filed: 06/17/18 03:01> Date of Encounter: 06/17/18 Time of Encounter: 02:15 - Constitutional Constitutional: no anorexia, no fever(s) - EENT Eyes: no blurry vision, no change in vision Nose, mouth and throat: no sore throat - Cardiovascular Cardiovascular ROS IM: dyspnea, irregular heart rhythm, lightheadedness, palpitations, no chest pain, no dyspnea on exertion, no syncope - Respiratory Respiratory: dyspnea, no chest congestion, no excessive phlegm production, no change in phlegm color - Gastrointestinal Gastrointestinal: nausea, no diarrhea, no vomiting - Integumentary Integumentary IM: no rash, no jaundice - Neurological Neurological ROS: no dizziness, no focal weakness, no frequent falls, no headache(s) - Psychiatric Psychiatric: anxiety, no depression - Endocrine Endocrine IM: no polydipsia, no polyphagia, no polyuria - Allergic/Immunologic Allergic/Immunologic: no GI upset with certain foods - Constitutional Vitals: Temp Pulse Resp BP Pulse Ox 97.8 F 58 12 109/53 93 06/17/18 00:30 06/17/18 02:00 06/17/18 02:00 06/17/18 02:00 06/17/18 02:00 General appearance: Present: cooperative, pleasant, no acute distress, answers questions appropriately - Eye Eye exam: Present: EOMI, PERRL. Absent: scleral icterus Pupils: Present: normal accommodation - ENT ENT exam: Present: mucous membranes dry, normal oropharynx - Neck Neck exam general surgery: Present: supple. Absent: tenderness, nuchal rigidity , thyromegaly - Expanded Neck Exam Neck exam: Absent: carotid bruit - Respiratory Respiratory exam: Present: CTAB. Absent: rales, rhonchi, wheezes - Cardiovascular Cardiovascular exam: Present: RRR, +S1, +S2. Absent: diastolic murmur, systolic murmur - GI/Abdominal GI/Abdominal exam: Present: soft. Absent: tenderness - Extremities Exam Extremities exam: Present: normal capillary refill, warm. Absent: pedal edema Internal Med - H&P Results - Labs CBC & Chem 7: 06/16/18 21:58 06/16/18 21:58 - EKG Data -: EKG Interpreted by Myself - EKG Data EKG comments: 06/17/18 02:54 sustained VTACH initial EKGs; NSR after cardioversion - Assessment and plan (1) DVT prophylaxis Current Visit: Yes Status: Acute (2) Obesity (BMI 30.0-34.9) Current Visit: No Status: Chronic (3) HLD (hyperlipidemia) Current Visit: No Status: Chronic Qualifiers: Hyperlipidemia type: unspecified Qualified Code(s): E78.5 - Hyperlipidemia , unspecified (4) PAF (paroxysmal atrial fibrillation) Current Visit: Yes Status: Chronic (5) Ventricular tachycardia Current Visit: Yes Status: Resolved (6) DRE (acute kidney injury) Current Visit: Yes Status: Acute (7) COPD (chronic obstructive pulmonary disease) Current Visit: Yes Status: Acute Qualifiers: COPD type: unspecified COPD Qualified Code(s): J44.9 - Chronic obstructive pulmonary disease, unspecified (8) Anticoagulant long-term use Current Visit: Yes Status: Chronic (9) CKD (chronic kidney disease) stage 3, GFR 30-59 ml/min Current Visit: Yes Status: Chronic - Time Spent With Patient Total time spent is greater than 50% in coordination of care (as documented) at patient's floor/unit and/or counseling patient: - Attending Attestation I discussed the patient [place], past medical history, review of systems, lab data , EKG findings, and exam findings with Dr. Bennett. I then saw and examined patient independently in the ICU. Currently, she is resting comfortably and in no acute distress. She feels back to baseline and feels well. She denies ever having any chest pain prior to, during, and after her cardioversion. She did become lightheaded, diaphoretic, and dizzy as her blood pressure was dropping just before cardioversion. Upon presentation to ER, she had only complaint of palpitations and some subtle shortness of breath. I reviewed her old records and note that she had a stress test several months ago, electrophysiologic study , and echocardiogram. However, she has not had left heart catheterization. Given that she now has some ventricular ectopy/dysrhythmia with sustained V-TACH , I recommend that she undergo left heart cathterization as this may be due to myocardial ischemia. Initial troponin was negative. We will trend serial troponins with the assumption that they may be elevated given her cardioversion. However, I am quite concerned that she may be having some coronary ischemia that will likely need intervention. We will therefore keep her nothing by mouth and consult cardiology for possible left heart catheterization. She is on Xarelto and we will hold it for now. If cardiology does not proceed with left heart transition, Xarelto will need to be resumed. She remains on amiodarone drip presently with no further symptoms at the present time. Other than my comments above and noted physical exam findings, I agree Dr. Bennett 's assessment and plan.
[2018-06-17] MEDS ORDERED: Naloxone 0.4 MG/ML INJ IVP PRN (00:59)
[2018-06-17] MEDS ORDERED: Ondansetron 4 MG/2 ML VIAL IVP PRN (01:04)
[2018-06-17] MEDS ORDERED: 0.9 % Sodium Chloride 1,000 ML IVC SCH (01:15)
[2018-06-17] MEDS: Acetaminophen 325 MG TABLET PO PRN ×2 (01:33→15:24)
[2018-06-17] MEDS ORDERED: Ipratropium/Albuterol Neb 3 ML IH PRN (01:35)
[2018-06-17] MEDS: Amiodarone Premix 360 MG/200 ML BAG IVC SCH ×2 (03:44→14:54)
[2018-06-17 04:27] LABS: Basophils % 0.4 %; Eosinophils % 0.2 %; Hematocrit 31.1 % (35.3-44.9); Immature Granulocytes % 0.6 % (0-4); Lymphocytes # 2.4 K/mcL (0.6-4.6); Lymphocytes % 22.5 %; Mean Corpuscular HGB Conc 32.2 g/dL (31.6-35.5); Mean Corpuscular Hemoglobin 28.7 pg (28.0-33.3); Mean Corpuscular Volume 89.4 fL (83.0-100.0); Mean Platelet Volume 9.9 fL (9.4-12.4); Monocytes # 0.9 K/mcL (0.0-1.3); Monocytes % 8.5 %; Neutrophils # 7.3 K/mcL (1.6-8.9); Platelet Count 235 K/mcL (140-400); Red Blood Count 3.48 M/mcL (3.82-4.97); Red Cell Distribution Width 17.4 % (11.5-14.5); Segmented Neutrophils % 67.8 %
[2018-06-17 04:34] LABS: INR 1.9; Prothrombin Time 21.5 Seconds (9.4-12.1)
[2018-06-17 04:35] LABS: Activated Partial Thrombo Time 37.4 Seconds (26.0-36.0)
[2018-06-17 04:52] LABS: Calcium 8.3 mg/dL (8.6-10.3); Potassium 4.1 mEq/L (3.5-5.1)
[2018-06-17] MEDS: Aspirin 81 MG TAB.CHEW PO SCH (08:59)
--- NOTE | 2018-06-17 11:26 | Cardiology Consult Note ---
<Kevin Alvarado - Last Filed: 06/17/18 11:42> Date of Encounter: 06/17/18 Time of Encounter: 11:20 Assessment and Plan (1) Ventricular tachycardia Current Visit: Yes Status: Resolved Per Cardiology: Patient noted to have stable monomorphic VT in ER with no loss of consciousness and underwent sedation with DC cardioversion. Currently on amiodarone drip and sinus rhythm on telemetry. Rythmol medication discontinued. Discussed and reviewed with Dr. Krishnan and Dr. Tamayo, recommendations for left heart catheterization for further ischemic evaluation. Had negative non-exercise nuclear stress test August 2017. EF preserved on echo June 2017. Troponins negative 3. Electrolytes stable. Further recommendations after catheterization. Of note, patient is DNR/Comfort Care arrest/DNI, patient and family willing to suspend for 24 hours for procedure. (2) PAF (paroxysmal atrial fibrillation) Current Visit: Yes Status: Chronic Per Cardiology: History of paroxysmal atrial fibrillation on antiarrhythmic therapy. Rythmol currently off-- of note underwent recent titration with cardioversion a few weeks ago. Now on amiodarone drip. Anticipate will need EP consult once ischemic evaluation completed. TSH stable. Symptoms appear resolved with taoist of sinus rhythm. (3) Anticoagulant long-term use Current Visit: Yes Status: Chronic Per Cardiology: Reports compliance with long-term anticoagulant, currently on hold. We will continue to hold for now for catheterization. Discussion w patient/family: The assessment and plan as outlined above was discussed with the patient and/or family members who expressed understanding and agreement. All questions were answered. Thank you for involving us in the care of your patient. Please call with any questions. History of Present Illness Consult date: 06/17/18 Requesting physician: Alex Meade Consult reason: VT Chief complaint: SOB History of present illness: Ms. Barksdale is a 63 year old female with a relevant past mental history of atrial fibrillation on antiarrhythmic therapy, COPD, GERD, hyperlipidemia, and history of TIA. Has past history of nicotine abuse. Recent increase of Rythmol up to 225 mg by mouth every 8 hours status post cardioversion about 3 weeks ago. Cardiology consult for recurrent A. fib and ventricular tachycardia. Patient seen with family at bedside. She reports she believes she remains sinus rhythm for about one week after most recent cardioversion. She indicates the past 2 weeks has noticed symptoms returning of short of breath at rest and exertion, palpitations, and dizziness. She reports yesterday evening developed worsening short of breath with exertion with difficulty walking to the bathroom. She reports systolic blood pressures noted to be in the 90s and heart rates in the 170s. She denied any syncope or falls or loss of consciousness. Denied any chest pain symptoms. Reports compliance with taking Rythmol. Additionally, has not missed any doses of Xarelto and denies any active bleeding or blood loss. Denies any past history of CAD and never had catheterization in the past. Currently chest pain-free. She reports short of breath, dizziness, and palpitations currently subsided. Past Med Surg Social Fam HX - Past Medical History Attestation: Yes The following information was validated with the patient. Source: patient, old records reviewed Medical history: atrial fibrillation, COPD, GERD, hyperlipidemia, TIA, other Additional medical history: MIGRAINES, ANXIETY,DEPRESSION,SLEEP PROBLEMS, Psychiatric history: anxiety, depression - Past Surgical History Surgical History: cholecystectomy, other Additional surgical history: Breast biopsy 1989,tubal - Social History Smoking Status: Former smoker Smokeless Tobacco Status: No Alcohol use: none Drug use: none - Family History Father Hx Family Endocrine Disorder: Yes (DM) Brother Living Status: Still Living Hx Family Cardiac Disorders: Yes (Quad bypass surgery 2013) Hx Family Cancer: Yes (Prostate ca) Hx Family Neurologic Disorders: Yes (migraines) Sister Living Status: Still Living Hx Family Cardiac Disorders: Yes (HTN) Hx Family Endocrine Disorder: Yes (DM) Hx Family Neurologic Disorders: Yes (migrains) Mother Living Status: Hx Family Cardiac Disorders: Yes (Blood clots) Hx Family Endocrine Disorder: Yes (DM) Medications and Allergies Cholecalciferol (D-3) [Vitamin D] 2,000 unit PO DAILY 07/07/16 [History] Pravastatin Sodium [Pravachol] 40 mg PO QPM 07/07/16 [History] Aspirin 81 mg PO DAILY tab.chew 07/09/16 [Rx] Omeprazole [PriLOSEC] 20 mg PO DAILY 07/11/17 [History] Rizatriptan Benzoate [Maxalt] 10 mg PO DAILY PRN 07/11/17 [History] Venlafaxine XR (24 HR) [Effexor Xr] 150 mg PO DAILY 07/11/17 [History] Gabapentin [Neurontin] 300 mg PO HS 11/29/17 [History] Metoprolol [Lopressor] 50 mg PO BID 11/29/17 [History] Acetaminophen [Tylenol] 500 mg PO Q6HR PRN 05/09/18 [History] Calcium Carbonate/Vitamin D3 [Caltrate 600 + D Soft Chew Tab] 1 each PO BID [History] Pramipexole [Mirapex] 0.5 mg PO HS 05/09/18 [History] Zolpidem [Ambien] 5 mg PO HS PRN 05/09/18 [History] Propafenone HCl [Rythmol Sr] 225 mg PO TID 05/25/18 [History] Rivaroxaban [Xarelto] 20 mg PO DAILY 06/17/18 [History] 3 Allergy/AdvReac Type Severity Reaction Status Date / Time Amoxicillin [From Augmentin] Allergy Rash Verified 03/23/16 18:01 clavulanic acid Allergy Rash Verified 03/23/16 18:01 [From Augmentin] prednisone Allergy Rash Verified 07/11/17 14:27 All Systems Review: The remainder of the systems were reviewed and are negative - Cardiovascular Cardiovascular: as per HPI, dyspnea at rest, dyspnea on exertion, irregular heart rhythm, lightheadedness, palpitations Physical Examination Vital Signs, Last 4 Hours Temp Pulse Resp BP Pulse Ox 06/17/18 09:00 60 16 93/52 96 06/17/18 08:00 56 18 108/64 95 06/17/18 07:50 97.9 F General: Conversant, No Apparent Distress HEENT: Atraumatic, Normocephaly, Mucus Membranes Moist Neck: No JVD, Normal carotid pulses Cardiac: Reg Rate and Rhythm, Normal S1 and S2, No Murmur Lungs: Normal Breath Sounds, No Wheeze, Rales, Rhonchi Neuro: Alert and responsive, No focal deficits noted Abdomen: Soft, Non-Tender Skin: No rashes noted on visualized skin Musculoskeletal: No Chest Wall Tenderness Extremities: No Clubbing, No Cyanosis, No Edema, Normal Pulses Results 06/17/18 04:14 06/17/18 04:14 Lab Results Laboratory Tests 06/16/18 06/17/18 06/17/18 21:58 04:14 04:14 Hgb 10.0 L Hct 31.1 L INR 1.9 Potassium Creatinine Est GFR (Non-Af Amer) Magnesium 1.8 Troponin I < 0.03 TSH 3.508 06/17/18 06/17/18 04:14 04:14 Hgb Hct INR Potassium 4.1 Creatinine 1.11 Est GFR (Non-Af Amer) 49 L Magnesium Troponin I < 0.03 TSH ITS Impressions Chest X-Ray 06/16/18 20:43 IMPRESSION: Enlarged cardiomediastinal silhouette may represent cardiomegaly and/or pericardial effusion. This may also be due to low lung volumes. No focal consolidation, pneumothorax, or significant pleural effusion. D/ / 06/16/2018 21:39:23 Arnaud Daniel MD / [facility] Interpreting Provider: Arnaud Daniel MD Active Medications Acetaminophen (Tylenol) 650 mg PO Q6HR PRN PRN Reason: Mild Pain/Fever Stop: 12/17/18 01:05 Last Admin: 06/17/18 01:33 Dose: 650 mg Albuterol/Ipratropium (Duoneb) 3 ml IH [id number] PRN PRN Reason: Shortness Of Breath/Wheezing Stop: 12/17/18 01:36 Aspirin (Aspirin) 81 mg PO DAILY [facility] Stop: 12/17/18 09:01 Last Admin: 06/17/18 08:59 Dose: 81 mg Amiodarone HCl/Dextrose (Amiodarone Drip Premix 360mg/200ml) 360 mg in 200 mls @ 16.667 mls/hr IVC CONT FLACO PRN Reason: 0.5 MG/MIN Stop: 12/17/18 02:16 Last Admin: 06/17/18 03:44 Dose: 0.5 mg/min, 16.667 mls/hr Naloxone HCl (Narcan) 0.4 mg IVP Q2MIN PRN PRN Reason: SEE COMMENTS Stop: 12/17/18 01:00 Omeprazole (Prilosec) 20 mg PO 0630 FLACO PRN Reason: Protocol Stop: 12/17/18 06:31 Last Admin: 06/17/18 06:03 Dose: 20 mg Ondansetron HCl (Zofran) 4 mg IVP Q6HR PRN PRN Reason: Nausea And Vomiting Stop: 12/17/18 01:05 Pramipexole Dihydrochloride (Mirapex) 0.5 mg PO HS FLACO Stop: 12/17/18 01:16 Last Admin: 06/17/18 01:33 Dose: 0.5 mg Propafenone HCl (Rhythmol) 225 mg PO TID FLACO Stop: 12/17/18 09:01 Rivaroxaban (Xarelto) 20 mg PO 1400 FLACO Stop: 12/17/18 14:01 Simvastatin (Zocor) 20 mg PO QPM FLACO Stop: 12/17/18 01:16 Last Admin: 06/17/18 01:32 Dose: 20 mg Zolpidem Tartrate (Ambien) 5 mg PO HS PRN; Protocol PRN Reason: Insomnia Stop: 12/17/18 01:12 Last Admin: 06/17/18 01:36 Dose: 5 mg - Imaging and Cardiology Stress Test: report reviewed Echo: report reviewed (06/2017: Impressions: LVEF 55-60%. Normal LV chamber size , wall thickness and function. Indeterminate diastolic function. Normal right ventricular structure and function. Moderately dilated left atrium. Moderate aortic regurgitation. Mild mitral regurgitation. Mild tricuspid regurgitation. No pulmonary hypertension. Left Ventricular Wall Motion: Rest Echo Findings All wall segments showed normal motion.) Cardiac cath: pending - EKG Interpretation EKG results cardiology: personally reviewed (ECG showed monomorphic ventricular tachycardia, currently ECG shows sinus bradycardia in the 50s), normal ECG, sinus rhythm, other (Currently sinus bradycardia to sinus rhythm on telemetry in the 50s to 60s) Consult Discharge Plan - Plan Referrals: Juhi Jacobson MD [Primary Care Provider] - < A - Last Filed: 06/17/18 17:03> Date of Encounter: 06/17/18 - Attending Attestation I have interviewed and examined the patient [id number] and agree with the documentation and plan of care as outlined above. Patient with monomorphic VT. Needs definitive ischemic evaluation, namely cath. Continue amiodarone Assessment and Plan Discussion w patient/family: The assessment and plan as outlined above was discussed with the patient and/or family members who expressed understanding and agreement. All questions were answered. Thank you for involving us in the care of your patient. Please call with any questions. History of Present Illness History of present illness: Ms. Barksdale is a 63 year old female All Systems Review: The remainder of the systems were reviewed and are negative Physical Examination Vital Signs, Last 4 Hours Temp Pulse Resp BP 06/17/18 16:21 60 16 119/54 06/17/18 14:47 98.2 F 71 17 119/66 Results 06/17/18 04:14 06/17/18 04:14 Lab Results 06/17/18 06/17/18 06/17/18 04:14 04:14 04:14 WBC 10.7 Hgb 10.0 L Hct 31.1 L Plt Count 235 INR 1.9 APTT 37.4 H Sodium 138 Potassium 4.1 Chloride 112 H Carbon Dioxide 19 L BUN 15 Creatinine 1.11 Glucose 125 H Calcium 8.3 L Troponin I 06/17/18 04:14 WBC Hgb Hct Plt Count INR APTT Sodium Potassium Chloride Carbon Dioxide BUN Creatinine Glucose Calcium Troponin I < 0.03
[2018-06-17] MEDS ORDERED: Heparin 1,000 UNITS/500 mL 500 ML ONE (13:03)
[2018-06-17] MEDS ORDERED: 0.9 % Sodium Chloride 1,000 ML ONE ×2 (13:03→13:35)
[2018-06-17] MEDS ORDERED: *HR* Heparin 10,000 UNIT/10 ML VIAL ONE (13:03)
[2018-06-17] MEDS ORDERED: ISOVUE-370 200 ML INFUS..BTL IV ONE (13:03)
[2018-06-17] MEDS ORDERED: Nitroglycerin 1,000 MCG/10 ML VIAL IV ONE (13:03)
[2018-06-17 13:29] LABS: Bilirubin,Urine Small (Negative); Blood,Urine Trace (Negative); Clarity,Urine Clear (Clear); Color,Urine Yellow (Yellow); Glucose,Urine (UA) Normal (Normal); Ketones,Urine Negative (Negative); Leukocyte Esterase,Urine Small (Negative); Nitrite,Urine Negative (Negative); Protein,Urine 30 mg/dL (Neg-Trace); Specific Gravity,Urine 1.026 (1.010-1.025); Urobilinogen,Urine Normal (Normal)
[2018-06-17 13:30] LABS: Bacteria,Urine Few per hpf (None-Few); Hyaline Casts,Urine Few per lpf (None-Few); Squamous Epithelial Cell,Urine Many per lpf (None-Few); WBC,Urine 15-30 per hpf (0-3)
[2018-06-17] MEDS ORDERED: *HR* Midazolam HCl 2 MG/2 ML VIAL ONE (13:34)
[2018-06-17] MEDS ORDERED: *HR* FentaNYL (PF) 100 MCG/2 ML VIAL ONE (13:35)
[2018-06-17 13:38] LABS: RBC,Urine 0-3 per hpf (0-3)
--- NOTE | 2018-06-17 13:56 | Event Note ---
<AnandKristian Lyon - Last Filed: 06/17/18 15:24> Date of Encounter: 06/17/18 I examined this patient and my medical decision-making was reviewed with the Resident Physician on 06/17/18. I agree with the documented findings, disposition and treatment plan as described except to the extent set forth below. Pt was admitted earlier today with V tach. Currently on IV amiodarone. No further episodes since admission. Overall feels well. Exam alert Comfortable Mucus membranes dry Heart reg No wheeze Agree with assessment and plan as above and in H&P <Tony Le - Last Filed: 06/17/18 19:48> Date of Encounter: 06/17/18 Time of Encounter: 09:15 S: Patient is s/p cardioversion in ED after presenting in afib-rvr with HR 168 PMHX significant for afib on xarelto and Metoprolol Reports prior cardioversion at end of April Continues to be in NSR has been on amio gtt, no chest pain, no palpitations, no lightheadedness or anxiety. O: Head exam: Present: atraumatic, normocephalic Eye exam: Present: PERRL, conjuntiva pink, sclera anicteric, EOMI Neck exam Present: supple, trachea midline. Absent: lymphadenopathy Respiratory exam: Present: CTAB, normal chest wall excursion. Absent: accessory muscle use, rales, rhonchi, wheezes Cardiovascular exam: Present: RRR approx 60 bpm, +S1, +S2. Absent: diastolic murmur, gallop, rubs, systolic murmur GI/Abdominal exam: Present: normal bowel sounds, soft, no peritoneal signs. Absent: distended, tenderness Extremities exam: Present: warm, radial pulses palpable and symmetrical. Absent : calf tenderness, cyanotic, pedal edema Neurological exam: Present: oriented X3, no focal deficits. Absent: facial droop, speech deficit Skin exam: Present: dry, intact A&P: (1) Ventricular tachycardia Patient went into ventricular tachycardia in the emergency room, was hypotensive , and required cardioversion. Patient was started on amiodarone drip TSH and magnesium levels within normal limits She is now back in sinus rhythm and reports feeling much improved. C to rule out ischemia this afternoon: unremarkable angiographically (2) PAF (paroxysmal atrial fibrillation) CHADS-VASc Score 4 points (age 63, female, history of TIA) She is currently back in normal sinus rhythm Continue amiodarone drip Holding home Metoprolol, Rythmol and Xarelto; xarelto still on hold based on pending follow-up recommendations post cath (e.g. EP procedures vs conservative management) (3) Anticoagulant long-term use INR 2.5, no signs of bleeding, 1.9 AM labs (4) DRE (acute kidney injury) Serum creatinine 1.32 Continue IV fluids Avoid nephrotoxins Continue monitoring (5) COPD (chronic obstructive pulmonary disease) Without acute exacerbation Patient was a former smoker Continue bronchodilators as needed (6) HLD (hyperlipidemia) Chronic, on statin (7) Obesity (BMI 30.0-34.9) BMI 31.5, lifestyle modification (8) CKD (chronic kidney disease) stage 3, GFR 30-59 ml/min Baseline GFR 55 Avoid nephrotoxins (9) DVT prophylaxis Hold Xarelto, continue heparin subcutaneous TID for DVT prophylaxis, resume Xarelto once cleared by cardiology
[2018-06-17] MEDS ORDERED: *HR* Rivaroxaban 10 MG TABLET PO SCH (14:00)
--- NOTE | 2018-06-17 14:39 | Invasive Diagnostic Lab Proc ---
Name: Lorraine Barksdale Date of Study: 06/17/2018 Date: 1955 Ht: 66.1in Medical Record#: [id number] Age: 63 Wt: 196.21lb Gender: Female BSA: 1.99 Order #: [id number] BMI: 31.53 Physicians Procedure Physician: Nichelle Tamayo MD Referring MD: Juhi Jacobson MD Referring MD: Staff Name Position Time In Nadine Dial RT (R) Monitor 01:44 PM Ashlee Martinez RT (R) Scrub 01:44 PM Serjio Ortega RN Assistant Quality Manager 01:44 PM Indications Indication Unstable Angina Procedures Performed Procedure L HRT ARTERY/VENTRICLE ANGIO Pre-Procedure Checklist Informed consent is complete signed and on chart. H&P is on chart. ID band is on and ID verified with patient. Patient NPO for procedure The procedure was described for the patient and questions were answered. Blood Pressure: 93/52 ECG is on chart. Rhythm: NSR Plan of Care Patient will tolerate the procedure without complications. Adequate level of comfort will be maintained. Hemodynamics will remain stable Patient will recover from procedure without complications. Respiratory function will be maintained. Cardiac rhythm will remain stable. Patient temperature will be maintained. Patient and/or family have verbalized understanding of the procedure. Patient Education Chief Complaint/Reason for Test: Cardiac Cath Developmental Category: Geriatric (65+ years) Developmentally Appropriate for Age: Yes Learning Barriers: None Education Needs: Procedure Education Method: Verbal Information Taught: Cardiac Cath Educational Evaluation: Able to repeat information Intravenous Access Time IV Size Location DC'd Fluid/Drip Rate Units RN 01:18 PM 20g 1 1/4" Patent On Arrival Rt Antecubital Amiodarone 0.5 mg/MIN Serjio Ortega RN 01:18 PM 22g 1" Patent On Arrival Rt Hand 0.9NaCl 25 ml/hr Serjio Ortega RN Allergies clavulanic acid Amoxicillin AUGMENTIN prednisone Vital Signs Time BP (mmHg) HR (bpm) O2 Sat. RR (bpm) LOC 01:13 PM 93 / 52 60 99 % 16 5 = Fully awake and oriented or at pre-proc level 01:45 PM / % 4 = Oriented but drowsy 01:42 PM 122 / 60 65 97 % 13 01:47 PM 118 / 55 63 96 % 10 01:52 PM 119 / 54 63 91 % 21 01:57 PM 120 / 59 63 92 % 13 02:02 PM 116 / 55 62 93 % 11 02:07 PM 111 / 53 63 93 % 14 02:12 PM 119 / 52 63 93 % 19 Procedural Medications Time Medication Dose Units Method Given By 01:44 PM Oxygen 2 L/min nasal cannula Serjio Ortega RN 01:45 PM Versed 1 mg Intravenous Serjio Ortega RN 01:45 PM Fentanyl 50 mcg Intravenous Serjio Ortega RN 01:54 PM Lidocaine 2% 10 ml Subcutaneous Nichelle Tamayo MD 01:56 PM Lidocaine 2% 7 ml Subcutaneous Nichelle Tamayo MD ASA Classification: CLASS II- Mild systemic disease (i.e. well-controlled diabetes, hypertension, asthma, cigarette smoking) Sandra Score Preprocedure Postprocedure Activity 2- Moves 4 extremities sustained head lift Activity 2- Moves 4 extremities sustained head lift Circulation 2- SBP +/= 20 points of pre-anesthetic level Circulation 2- SBP +/= 20 points of pre-anesthetic level Consciousness 2- Awake and alert oriented x 3 Consciousness 2- Awake and alert oriented x 3 O2 Saturation 2- Able to maintain O2 satruation of 92% on room air O2 Saturation 2- Able to maintain O2 satruation of 92% on room air Respiratory 2- Able to deep breathe and cough well Respiratory 2- Able to deep breathe and cough well Total Score 10 Total Score 10 Contrast Agent: Isovue Diagnostic Contrast: 41 ml Total Contrast: 41 ml Fluoro Dose: 2478 mGy Procedure Log Time Note Enter By 01:03 PM CathStat 01:41 PM Case Start 01:41 PM Vitals capture started with the following parameters, Patient=Adult, Interval=5 min, Initial Lwxvijdg=918 mmHg, Deflation Rate=5 mmHg, Cuff placed on Right Arm 01:42 PM HR=65 bpm, EDCI=638/60 mmhg, SpO2=97.0 %, Resp=13 B/min 01:44 PM Recorded ECG: HR=65 Condition=Condition 1 01:44 PM Pt arrived to film laboratory technician 2 at 13:44 tsites 01:44 PM Nadine Dial RT (R) Position: Monitor Time in: 13:44 tsites 01:44 PM Ashlee Martinez RT (R) Position: Scrub Time in: 13:44 tsites 01:44 PM Ortega, Serjio RN Position: Assistant Quality Manager Time in: 13:44 tsites :44 PM Case Delayed No tsites :44 PM Hair removed from procedure site in holding area using clippers. Bilateral groin prepped with Chloraprep by Nadine Dial (R), then patient was draped. Skin intact. tsites :44 PM Physician arrived 13:44 tsites :44 PM ASA Class CLASS II- Mild systemic disease (i.e. well-controlled diabetes, hypertension, asthma, cigarette smoking) tsites :44 PM Meet and greet completed tsites :44 PM Sign in performed according to hospital policy. tsites :44 PM Procedure start 13:44 tsites :45 PM Time: 13:44 Oxygen on at 2 L/min per nasal cannula by Serjio Ortega RN tsites :45 PM Time: 13:45 Versed 1 mg Intravenous Given by Serjio Ortega RN tsites :45 PM Time: 13:45 Fentanyl 50 mcg Intravenous Given by Serjio Ortega RN tsites :45 PM Time: 13:45 Patient comfortable and pain free: Yes tsites :45 PM Time: 13:45LOC: 4 = Oriented but drowsy tsites 01:47 PM HR=63 bpm, OXEO=384/55 mmhg, SpO2=96.0 %, Resp=10 B/min, EtCO2=28 mmHg, Comment=NSR 01:47 PM Pressure channel 1 zeroed. 01:50 PM Time out performed according to hospital policy [email or web address] 01:50 PM Pressure channel 1 zeroed. 01:52 PM HR=63 bpm, NDGB=458/54 mmhg, SpO2=91.0 %, Resp=21 B/min, Comment=NSR 01:54 PM Time: 13:54 10 ml Lidocaine 2% to right groin Subcutaneous Given by Nichelle Tamayo MD [email or web address] 01:55 PM Unsuccessful access attempt # 1 into the right Femoral artery. Manual pressure applied to achieve hemostasis.. [email or web address] 01:56 PM Time: 13:56 7 ml Lidocaine 2% to right groin Subcutaneous Given by Nichelle Tamayo MD [email or web address] 01:57 PM HR=63 bpm, KWUK=564/59 mmhg, SpO2=92.0 %, Resp=13 B/min, Comment=NSR 01:57 PM Unsuccessful access attempt # 2 into the right Femoral artery. Manual pressure applied to achieve hemostasis.. [email or web address] 02:02 PM HR=62 bpm, QVMC=674/55 mmhg, SpO2=93.0 %, Resp=11 B/min, Comment=NSR 02:02 PM Unsuccessful access attempt # 3 into the right Femoral artery. Manual pressure applied to achieve hemostasis.. [email or web address] 02:04 PM Micro-Introducer Kit utilized for sheath placement [email or web address] 02:04 PM 3 mls contrast injected into rt groin. [email or web address] 02:05 PM Access obtained by percutaneous puncture. 5Fr 10cm Terumo [place] sheath placed in right Femoral artery. [id number] [email or web address] 02:05 PM 0.035 145cm [employer] 3mmJ wire [id number] [email or web address] 02:05 PM 5Fr FR 4 catheter inserted over the wire [facility] [email or web address] 02:06 PM RCA angiography performed in multiple views. [email or web address] 02:06 PM Coronary Dominance: right [email or web address] 02:06 PM Recorded Pressure: Ao, HR=63, Condition=Condition 1 (Aorta) Ao 107/61/82 02:07 PM HR=63 bpm, CLXZ=809/53 mmhg, SpO2=93.0 %, Resp=14 B/min, Comment=NSR 02:07 PM Catheter removed [email or web address] 02:07 PM 5Fr FL 4 catheter inserted over the wire [facility] [email or web address] 02:08 PM LCA angiography performed in multiple views. [email or web address] 02:09 PM Catheter removed [email or web address] 02:09 PM 5Fr Pigtail catheter inserted over the wire DN [email or web address] 02:09 PM Catheter selectively placed in left ventricle [email or web address] 02:10 PM Recorded Pressure: LV, HR=76, Condition=Condition 1 (Left Ventricle) LV 118/44/8 02:10 PM Recorded Pressure: LV, HR=64, Condition=Condition 1 (Left Ventricle) LV 118/20/26 02:11 PM Bolus angiogram of left Ventricle complete: 10 ml/sec for a total of 20 mls [email or web address] 02:11 PM Recorded Pressure: LV, Ao, HR=64, Condition=Condition 1 (Left Ventricle) LV 106/39/40, (Aorta) Ao 111/63/85 02:12 PM HR=63 bpm, XZRX=944/52 mmhg, SpO2=93.0 %, Resp=19 B/min, Comment=NSR 02:12 PM Catheter removed [email or web address] 02:13 PM Procedure completed at 14:13 06/17/2018 [email or web address] 02:13 PM Did you address MAYNOR flow and Dominance? Yes [email or web address] 02:14 PM Sign out completed: Radiation Dose 211.05 mGy, 2477.62 cGy/cm2 Fluoro Time: 1.7 Isovue 370 - 200ml contrast 41 ml given by Nichelle Tamayo MD. Complications: NoneCardiac Rehab Consult needed: NoConfirmed administered medications: Yes [email or web address] 02:14 PM Isovue 370 - 200ml,1 Bottle(s) used. [email or web address] 02:14 PM Arterial sheath pulled, Angio-seal closure device used and was Successful S/N. [email or web address] 02:14 PM Estimated Blood Loss: minimal [email or web address] 02:14 PM Post ECG NSR [email or web address] 02:14 PM Post Blood Pressure 119/52 [email or web address] 02:14 PM Information taught Cardiac Cath and Angioseal [email or web address] 02:14 PM Education needs Procedure, Disease Process, and Plan of Care [email or web address] 02:15 PM Learning barriers :None [email or web address] 02:15 PM Education Methods Verbal [email or web address] 02:15 PM Education evaluation Able to repeat information [email or web address] 02:15 PM Site status No bleeding/hematoma - Rt Groin as reported by Sites, Ashlee RT (R) at 14:15 [email or web address] 02:15 PM Opsite applied [email or web address] 02:15 PM Delay to floor No [email or web address] 02:15 PM Family placed in consult room. [email or web address] 02:15 PM Complications: None [email or web address] 02:22 PM Report given to RN Pt taken to 2N Room #3. 14:22 [email or web address] 02:25 PM Patient out of room: 14:25 [email or web address] Complications Complication None None Hemodynamics Pressures Site Systolic/A Wave Diastolic/V Wave Mean AO 107 61 82 LV 118 44 8 LV 118 20 26 LV 106 39 40 AO 111 63 85 Post Procedure Information Blood Pressure: 119/52 mmHg Rhythm: NSR Post procedural instructions were given Closure Device Time Device Success/Fail 06/17/2018 2:15:00 PM Angio-Seal VIP Successful Site Checks Time Location Status Staff Sheath In? Note 02:15 PM Rt Groin No bleeding/hematoma Sites, Ashlee RT (R) Pulses Time Site Pre-Procedure Post-Procedure Note 06/17/2018 1:18:00 PM Bilateral DP 2+ 2+ 06/17/2018 1:19:00 PM Bilateral PT 1+ 1+ Updated by Nadine Dial, RT(R) on 06/17/2018 2:30:30 PM electronically signed on 06/17/2018 2:31:06 PM with status of Final
[2018-06-18] MEDS: Amiodarone Premix 360 MG/200 ML BAG IVC SCH (02:51)
[2018-06-18] MEDS: Acetaminophen 325 MG TABLET PO PRN ×3 (04:07→23:43)
[2018-06-18 04:59] LABS: Hematocrit 29.2 % (35.3-44.9); Hemoglobin 9.5 g/dL (11.5-15.4); Mean Corpuscular HGB Conc 32.5 g/dL (31.6-35.5); Mean Corpuscular Hemoglobin 28.5 pg (28.0-33.3); Mean Corpuscular Volume 87.7 fL (83.0-100.0); Mean Platelet Volume 10.2 fL (9.4-12.4); Platelet Count 225 K/mcL (140-400); Red Blood Count 3.33 M/mcL (3.82-4.97); Red Cell Distribution Width 17.3 % (11.5-14.5)
[2018-06-18 05:19] LABS: BUN/Creatinine Ratio 13 (6-26); Blood Urea Nitrogen 12 mg/dL (8-23); Calcium 8.5 mg/dL (8.6-10.3); Carbon Dioxide 20 mEq/L (23-29); Chloride 110 mEq/L (98-107); Glucose 116 mg/dL (70-105); Osmolality,Calculated 285 (280-300); Potassium 3.5 mEq/L (3.5-5.1); Sodium 137 mEq/L (136-145); eGFR For Non-African Americans > 60 (> 60)
--- NOTE | 2018-06-18 08:15 | Cardiology Progress Note ---
Date of Encounter: 06/18/18 Time of Encounter: 08:10 Assessment and Plan (1) Ventricular tachycardia Current Visit: Yes Status: Resolved Per Cardiology: Patient noted to have stable monomorphic VT in ER with no loss of consciousness and underwent sedation with DC cardioversion. Currently on amiodarone drip and sinus rhythm on telemetry. Rythmol medication discontinued. LHC: Impressions: Coronary arteries are angiographically normal. The left ventricle is normal and has normal contractility EF 55% Discussed and reviewed with Dr. Krishnan, will DC IV amio gtt and start PO amio 400mg PO BID. EF preserved on echo June 2017-- will repeat echo. Troponins negative 3. Electrolytes stable. Of note, patient is DNR/Comfort Care arrest/ DNI, per Dr. Krishnan, will need eval for potential ICD if desires. (2) PAF (paroxysmal atrial fibrillation) Current Visit: Yes Status: Chronic Per Cardiology: History of paroxysmal atrial fibrillation on antiarrhythmic therapy. Rythmol currently off-- of note underwent recent titration with cardioversion a few weeks ago. Converting IV amio to PO. TSH stable. Symptoms appear resolved with pentecostalism of sinus rhythm. Consider EP consult. (3) Anticoagulant long-term use Current Visit: Yes Status: Chronic Per Cardiology: Reports compliance with long-term anticoagulant, s/p LHC, will resume Xarelto.. Discussion w patient/family: The assessment and plan as outlined above was discussed with the patient and/or family members who expressed understanding and agreement. All questions were answered. Thank you for involving us in the care of your patient. Please call with any questions. Subjective Principal diagnosis: VT Interval history: Patient denies any concerns over night. Denies any chest pain, short of breath , palpitations. Denies any concerns regarding right groin site. Objective Vital Signs, Last 4 Hours Temp Pulse Resp BP Pulse Ox 06/18/18 07:29 98.5 F 70 17 119/53 97 06/18/18 05:00 71 117/47 General: Conversant, No Apparent Distress HEENT: Atraumatic, Normocephaly, Mucus Membranes Moist Neck: No JVD, Normal carotid pulses Cardiac: Reg Rate and Rhythm, Normal S1 and S2, No Murmur Lungs: Normal Breath Sounds, No Wheeze, Rales, Rhonchi Neuro: Alert and responsive, No focal deficits noted Abdomen: Soft, Non-Tender Skin: No rashes noted on visualized skin, Other (Right groin site trying intact , no hematoma, no ecchymosis, no bleeding, right PT and DP pulses 1+ palpable) Musculoskeletal: No Chest Wall Tenderness Extremities: No Clubbing, No Cyanosis, No Edema, Normal Pulses Results 06/18/18 04:42 06/18/18 04:42 Lab Results Laboratory Tests 06/18/18 06/18/18 04:42 04:42 Hgb 9.5 L Hct 29.2 L Creatinine 0.92 Est GFR (Non-Af Amer) > 60 Active Medications Acetaminophen (Tylenol) 650 mg PO Q6HR PRN PRN Reason: Mild Pain/Fever Stop: 12/17/18 01:05 Last Admin: 06/18/18 04:07 Dose: 650 mg Albuterol/Ipratropium (Duoneb) 3 ml IH [id number] PRN PRN Reason: Shortness Of Breath/Wheezing Stop: 12/17/18 01:36 Amiodarone HCl (Cordarone) 400 mg PO BID [facility] Stop: 12/18/18 09:01 Aspirin (Aspirin) 81 mg PO DAILY [facility] Stop: 12/17/18 09:01 Last Admin: 06/17/18 08:59 Dose: 81 mg Naloxone HCl (Narcan) 0.4 mg IVP Q2MIN PRN PRN Reason: SEE COMMENTS Stop: 12/17/18 01:00 Omeprazole (Prilosec) 20 mg PO 0630 [place] PRN Reason: Protocol Stop: 12/17/18 06:31 Last Admin: 06/18/18 06:31 Dose: 20 mg Ondansetron HCl (Zofran) 4 mg IVP Q6HR PRN PRN Reason: Nausea And Vomiting Stop: 12/17/18 01:05 Pramipexole Dihydrochloride (Mirapex) 0.5 mg PO HS [facility] Stop: 12/17/18 01:16 Last Admin: 06/17/18 20:20 Dose: 0.5 mg Rivaroxaban (Xarelto) 20 mg PO 1700 [facility] Stop: 12/18/18 08:13 Simvastatin (Zocor) 20 mg PO QPM [facility] Stop: 12/17/18 01:16 Last Admin: 06/17/18 16:28 Dose: 20 mg Zolpidem Tartrate (Ambien) 5 mg PO HS PRN; Protocol PRN Reason: Insomnia Stop: 12/17/18 01:12 Last Admin: 06/17/18 01:36 Dose: 5 mg - Imaging and Cardiology Echo: pending Cardiac cath: report reviewed - EKG Interpretation EKG results cardiology: other (Telemetry reviewed with average heart rate past 12 hrs = 69, sinus rhythm, no VT noted, A. fib noted) - VTE Reasons for not Prescribing Prophylaxis: Not indicated-Anticoagulated or INR therapeutic Consult Discharge Plan - Plan Referrals: Juhi Jacobson MD [Primary Care Provider] -
--- NOTE | 2018-06-18 08:32 | Internal Med Progress Note ---
<Tony Le - Last Filed: 06/18/18 15:30> Hospitalist Progress Note - Encounter Date of Encounter: 06/18/18 Time of Encounter: 09:15 - Subjective Interval History: Ms. Barksdale tolerated the diagnostic [facility] well. No fever, palpitations, shortness of breath, syncope. She is interested in discussing ICD further. Plan for EP eval Tuesday. - Exam Vitals: Temp Pulse Resp BP Pulse Ox 98.5 F 70 17 119/53 97 06/18/18 07:29 06/18/18 07:29 06/18/18 07:29 06/18/18 07:29 06/18/18 07:29 Exam: PHYSICAL EXAM: Head exam: Present: atraumatic, normocephalic Eye exam: Present: PERRL, conjuntiva pink, sclera anicteric, EOMI Neck exam Present: supple, trachea midline. Absent: lymphadenopathy Respiratory exam: Present: CTAB, normal chest wall excursion. Absent: accessory muscle use, rales, rhonchi, wheezes Cardiovascular exam: Present: RRR, +S1, +S2. Absent: diastolic murmur, gallop, rubs, systolic murmur GI/Abdominal exam: Present: normal bowel sounds, soft, no peritoneal signs. Absent: distended, tenderness Extremities exam: Present: warm, radial pulses palpable and symmetrical. Absent : calf tenderness, cyanotic, pedal edema Neurological exam: Present: oriented X3, no focal deficits. Absent: facial droop, speech deficit Skin exam: Present: dry, intact - Assessment and Plan (1) Ventricular tachycardia Current Visit: Yes Status: Resolved Assessment and Plan: Sustained; Monomorphic; s/p DC cardioversion in ED. S/p [facility] nonstenotic coronaries EP consult, ICD discussion, planned for tomorrow Tuesday (2) PAF (paroxysmal atrial fibrillation) Current Visit: Yes Status: Chronic Assessment and Plan: Currently on Amio 400mg BID po per Cardiology Plan for EP consult tomorrow (3) HLD (hyperlipidemia) Current Visit: No Status: Chronic Assessment and Plan: Continue statin, [facility] coronaries nonstenotic (4) DRE (acute kidney injury) Current Visit: Yes Status: Acute Assessment and Plan: 1.32 -> 1.11 -> 0.92 PO hydration (5) COPD (chronic obstructive pulmonary disease) Current Visit: Yes Status: Acute Assessment and Plan: Not in exacerbation PRN aerosols (6) Anticoagulant long-term use Current Visit: Yes Status: Chronic Assessment and Plan: Xarelto resumed by Cardiology (7) CKD (chronic kidney disease) stage 3, GFR 30-59 ml/min Current Visit: Yes Status: Chronic Assessment and Plan: DRE resolved, avoiding nephrotoxins, tolerated LHC (8) Obesity (BMI 30.0-34.9) Current Visit: No Status: Chronic Assessment and Plan: BMI 32.1 Good LHC (9) DVT prophylaxis Current Visit: Yes Status: Acute Assessment and Plan: Xarelto continued by Cardiology - Time Spent with Patient Total time spent is greater than 50% in coordination of care (as documented) at patient's floor/unit and/or counseling patient: Internal Medicine: Result - Labs CBC & Chem 7: 06/18/18 04:42 06/18/18 04:42 Labs: Short CBC 06/18/18 Range/Units 04:42 WBC 13.2 H (4.3-11.1) K/mcL Hgb 9.5 L (11.5-15.4) g/dL Hct 29.2 L (35.3-44.9) % Plt Count 225 (140-400) K/mcL BMP 06/18/18 04:42 Sodium 137 Potassium 3.5 Chloride 110 H Carbon Dioxide 20 L BUN 12 Creatinine 0.92 Glucose 116 H Calcium 8.5 L Urine 06/17/18 Range/Units 13:15 Urine Color Yellow (Yellow) Urine Clarity Clear (Clear) Urine pH 5.0 (5.0-8.0) pH Units Ur Specific [place] 1.026 H (1.010-1.025) Urine Protein 30 H (Neg-Trace) mg/dL Urine Glucose (UA) Normal (Normal) mg/dL - ABG Interpretation ABG results: PT/INR, D-dimer PT 21.5 Seconds (9.4-12.1) H 06/17/18 04:14 - VTE Reasons for not Prescribing Prophylaxis: Not indicated-Anticoagulated or INR therapeutic Consult Discharge Plan - Plan Referrals: Juhi Jacobson MD [Primary Care Provider] - <Kristian Michel - Last Filed: 06/18/18 16:21> Hospitalist Progress Note - Encounter Date of Encounter: 06/18/18 - Exam Vitals: Temp Pulse Resp BP Pulse Ox 98.4 F 69 18 110/54 96 06/18/18 11:34 06/18/18 11:34 06/18/18 11:34 06/18/18 11:34 06/18/18 11:34 - Assessment and Plan (1) Ventricular tachycardia Current Visit: Yes Status: Resolved (2) DVT prophylaxis Current Visit: Yes Status: Acute (3) Obesity (BMI 30.0-34.9) Current Visit: No Status: Chronic (4) HLD (hyperlipidemia) Current Visit: No Status: Chronic (5) PAF (paroxysmal atrial fibrillation) Current Visit: Yes Status: Chronic (6) DRE (acute kidney injury) Current Visit: Yes Status: Resolved (7) COPD (chronic obstructive pulmonary disease) Current Visit: Yes Status: Chronic (8) Anticoagulant long-term use Current Visit: Yes Status: Chronic (9) CKD (chronic kidney disease) stage 3, GFR 30-59 ml/min Current Visit: Yes Status: Chronic - Time Spent with Patient Total time spent is greater than 50% in coordination of care (as documented) at patient's floor/unit and/or counseling patient: Internal Medicine: Result - Labs CBC & Chem 7: 06/18/18 04:42 06/18/18 04:42 Labs: Short CBC 06/18/18 Range/Units 04:42 WBC 13.2 H (4.3-11.1) K/mcL Hgb 9.5 L (11.5-15.4) g/dL Hct 29.2 L (35.3-44.9) % Plt Count 225 (140-400) K/mcL BMP 06/18/18 04:42 Sodium 137 Potassium 3.5 Chloride 110 H Carbon Dioxide 20 L BUN 12 Creatinine 0.92 Glucose 116 H Calcium 8.5 L - ABG Interpretation ABG results: PT/INR, D-dimer PT 21.5 Seconds (9.4-12.1) H 06/17/18 04:14 - Attending Attestation I examined this patient and my medical decision-making was reviewed with the Resident Physician on 06/18/18. I agree with the documented findings, disposition and treatment plan as described except to the extent set forth below. Ms Barksdale is currently admitted for VT. She remains moderate to high risk due to potential for worsening clinical and cardiac status. Ms Barksdale feels OK. She is on PO amiodarone. EP to see tomorrow. No fever or chills. No CP or SOB at this time. Exam alert Comfortable eating lunch. Mucus membranes dry Heart reg No wheeze No edema I/P 1. VT - on amio. EP to see tomorrow 2. A fib hx Further diagnoses and plan as above. <Tony Le - Last Filed: 06/18/18 15:30> (3) HLD (hyperlipidemia) Qualifiers: Hyperlipidemia type: unspecified Qualified Code(s): E78.5 - Hyperlipidemia, unspecified (5) COPD (chronic obstructive pulmonary disease) Qualifiers: COPD type: unspecified COPD Qualified Code(s): J44.9 - Chronic obstructive pulmonary disease, unspecified <Kristian Michel - Last Filed: 06/18/18 16:21> (4) HLD (hyperlipidemia) Qualifiers: Hyperlipidemia type: mixed hyperlipidemia Qualified Code(s): E78.2 - Mixed hyperlipidemia (7) COPD (chronic obstructive pulmonary disease) Qualifiers: COPD type: unspecified COPD Qualified Code(s): J44.9 - Chronic obstructive pulmonary disease, unspecified
[2018-06-18] MEDS: Aspirin 81 MG TAB.CHEW PO SCH (08:39)
[2018-06-18] MEDS: *HR* Amiodarone 200 MG TABLET PO SCH ×2 (08:39→20:42)
[2018-06-18] MEDS: *HR* Rivaroxaban 10 MG TABLET PO SCH ×2 (08:39→17:37)
[2018-06-19 05:17] LABS: Hematocrit 33.3 % (35.3-44.9); Hemoglobin 10.5 g/dL (11.5-15.4); Mean Corpuscular HGB Conc 31.5 g/dL (31.6-35.5); Mean Corpuscular Hemoglobin 28.2 pg (28.0-33.3); Mean Corpuscular Volume 89.5 fL (83.0-100.0); Mean Platelet Volume 10.2 fL (9.4-12.4); Platelet Count 234 K/mcL (140-400); Red Blood Count 3.72 M/mcL (3.82-4.97); Red Cell Distribution Width 17.9 % (11.5-14.5)
[2018-06-19 05:36] LABS: BUN/Creatinine Ratio 7 (6-26); Blood Urea Nitrogen 6 mg/dL (8-23); Calcium 8.9 mg/dL (8.6-10.3); Carbon Dioxide 23 mEq/L (23-29); Chloride 112 mEq/L (98-107); Glucose 99 mg/dL (70-105); Osmolality,Calculated 296 (280-300); Potassium 3.2 mEq/L (3.5-5.1); Sodium 144 mEq/L (136-145); eGFR For Non-African Americans > 60 (> 60)
--- NOTE | 2018-06-19 08:04 | Internal Med Progress Note ---
<MunirBenjamin Lyon - Last Filed: 06/19/18 17:53> Hospitalist Progress Note - Encounter Date of Encounter: 06/19/18 Time of Encounter: 08:30 - Subjective Interval History: Ms. Barksdale is a 63F who was admitted for an increased HR on 06/16. While in the ED, she went into V tach and was subsequently cardioverted. She underwent LHC on 06/17. She was rate controlled with amiodarone successfully prior to this encounter. Prior to entering pt room, the nurse informed this provider that pt was back in a fib. Pt has no new or acute complaints. States she feels well. No chest pain, SOB, numbness, or tingling. States she has a baseline aching type headache which is relieved by Tylenol. Denies any difficulty eating, nausea, or vomiting. - Exam Vitals: Temp Pulse Resp BP Pulse Ox 98.5 F 97 16 122/66 91 06/19/18 06:48 06/19/18 06:48 06/19/18 06:48 06/19/18 06:48 06/19/18 06:48 Exam: Head: atraumatic, normocephalic Eyes: PERRL, conjuntiva pink, sclera anicteric, EOMI Neck: supple, trachea midline Lungs: CTA bilaterally, normal chest wall movement. No accessory muscle use, wheezes, rales, or rhonchi. Heart: Tachycardic and regular. +S1. No murmurs, clicks, or rubs. Abdomen: soft, non-tender, non-distended Extremities: warm, radial pulses palpable and symmetrical. No cyanosis or pedal edema Neuro: A&Ox3, no focal deficits, speech difficulty or speech abnormality. Skin: warm, dry, intact - Assessment and Plan (1) PAF (paroxysmal atrial fibrillation) Current Visit: Yes Status: Chronic Assessment and Plan: CHADS-VASc Score: 4 (age 63, female, history of TIA) She is back in A fib this morning Currently on 400mg Amio BID Management per cardio (2) HLD (hyperlipidemia) Current Visit: No Status: Chronic Assessment and Plan: Continue home Zocor (3) Ventricular tachycardia Current Visit: Yes Status: Resolved Assessment and Plan: Patient went into ventricular tachycardia in the emergency room, was hypotensive , and required cardioversion. Patient was started on amiodarone drip at that time TSH and magnesium levels within normal limits At this time pt has not gone back into V tach. Cardio on board. (4) COPD (chronic obstructive pulmonary disease) Current Visit: Yes Status: Chronic Assessment and Plan: Without acute exacerbation Patient was a former smoker Duonebs as needed (5) Anticoagulant long-term use Current Visit: Yes Status: Chronic Assessment and Plan: Xarelto continued by Cardiology (6) Obesity (BMI 30.0-34.9) Current Visit: No Status: Chronic (7) DVT prophylaxis Current Visit: Yes Status: Acute Assessment and Plan: On Xarelto (8) CKD (chronic kidney disease) stage 3, GFR 30-59 ml/min Current Visit: Yes Status: Chronic Assessment and Plan: DRE resolved Avoid nephrotoxins Tolerated [facility] DVT Prophylaxis: on Xarelto - Time Spent with Patient Total time spent is greater than 50% in coordination of care (as documented) at patient's floor/unit and/or counseling patient: Internal Medicine: Result - Labs CBC & Chem 7: 06/19/18 04:43 06/19/18 04:43 Labs: Short CBC 06/19/18 Range/Units 04:43 WBC 10.0 (4.3-11.1) K/mcL Hgb 10.5 L (11.5-15.4) g/dL Hct 33.3 L (35.3-44.9) % Plt Count 234 (140-400) K/mcL BMP 06/19/18 04:43 Sodium 144 Potassium 3.2 L Chloride 112 H Carbon Dioxide 23 BUN 6 L Creatinine 0.89 Glucose 99 Calcium 8.9 - ABG Interpretation ABG results: PT/INR, D-dimer PT 21.5 Seconds (9.4-12.1) H 06/17/18 04:14 - VTE Reasons for not Prescribing Prophylaxis: Not indicated-Anticoagulated or INR therapeutic Consult Discharge Plan - Plan Referrals: Juhi Jacobson MD [Primary Care Provider] - 07/03/18 11:15 am <Kristian Michel - Last Filed: 06/19/18 19:37> Hospitalist Progress Note - Encounter Date of Encounter: 06/19/18 - Exam Vitals: Temp Pulse Resp BP Pulse Ox 98.4 F 123 18 112/67 96 06/19/18 16:39 06/19/18 16:39 06/19/18 16:39 06/19/18 16:39 06/19/18 16:39 - Assessment and Plan (1) DVT prophylaxis Current Visit: Yes Status: Acute (2) Obesity (BMI 30.0-34.9) Current Visit: No Status: Chronic (3) HLD (hyperlipidemia) Current Visit: No Status: Chronic (4) PAF (paroxysmal atrial fibrillation) Current Visit: Yes Status: Chronic (5) Ventricular tachycardia Current Visit: Yes Status: Resolved (6) COPD (chronic obstructive pulmonary disease) Current Visit: Yes Status: Chronic (7) Anticoagulant long-term use Current Visit: Yes Status: Chronic (8) CKD (chronic kidney disease) stage 3, GFR 30-59 ml/min Current Visit: Yes Status: Chronic - Time Spent with Patient Total time spent is greater than 50% in coordination of care (as documented) at patient's floor/unit and/or counseling patient: Internal Medicine: Result - Labs CBC & Chem 7: 06/19/18 04:43 06/19/18 04:43 Labs: Short CBC 06/19/18 Range/Units 04:43 WBC 10.0 (4.3-11.1) K/mcL Hgb 10.5 L (11.5-15.4) g/dL Hct 33.3 L (35.3-44.9) % Plt Count 234 (140-400) K/mcL [facility] 06/19/18 04:43 Sodium 144 Potassium 3.2 L Chloride 112 H Carbon Dioxide 23 BUN 6 L Creatinine 0.89 Glucose 99 Calcium 8.9 - ABG Interpretation ABG results: PT/INR, D-dimer PT 21.5 Seconds (9.4-12.1) H 06/17/18 04:14 - Impressions Impressions Echocardiogram 06/19/18 07:45 Impressions: LVEF 60%. Indeterminate diastolic function. Normal right ventricular structure and function. Mild-moderate mitral regurgitation. Moderate aortic regurgitation. Mild tricuspid regurgitation. No pulmonary hypertension based on TR gradient obtained. IVC not well visualized. Left Ventricular Wall Motion: Rest Echo Findings All wall segments showed normal motion. Findings: Study Quality * Technically adequate exam. ECG Findings * Atrial fibrillation. Left Ventricle * LVEF 60%. * Normal LV chamber size, wall thickness and function. * Indeterminate diastolic function. Right Ventricle * Normal right ventricular structure and function. Left Atrium * Severely dilated left atrium. Right Atrium * Normal right atrial size. Mitral Valve * Normal mitral valve structure. * No mitral stenosis. * Mild-moderate mitral regurgitation. Aortic Valve * Aortic valve not well visualized. * No aortic stenosis. * Moderate aortic regurgitation. Tricuspid Valve * Tricuspid valve not well visualized. * Mild tricuspid regurgitation. Pulmonic Valve * Pulmonic valve is not well visualized. * No pulmonic stenosis. * Trace pulmonic regurgitation. Pulmonary Artery * Pulmonary artery not well visualized. Aorta * Normally sized aortic root. Pericardium * There is no pericardial effusion present. Interatrial Septum * Interatrial septum not well evaluated. IVC * The IVC is not well evaluated. - Attending Attestation I examined this patient and my medical decision-making was reviewed with the Resident Physician on 06/19/18. I agree with the documented findings, disposition and treatment plan as described except to the extent set forth below. Ms Barksdale is currently admitted for VT and rapid a fib. She remains moderate to high risk due to potential for worsening clinical status. Ms Barksdale feels OK. No fever or chills. No CP or SOB. Now in rapid a fib. Exam alert Comfortable Mucus membranes dry Heart irreg and tachy No wheeze Abd soft No edema I/P 1. Rapid a fib - EP to see today. 2. VT Further diagnoses and plan as above. <Benjamin Amaral - Last Filed: 06/19/18 17:53> (2) HLD (hyperlipidemia) Qualifiers: Hyperlipidemia type: mixed hyperlipidemia Qualified Code(s): E78.2 - Mixed hyperlipidemia (4) COPD (chronic obstructive pulmonary disease) Qualifiers: COPD type: unspecified COPD Qualified Code(s): J44.9 - Chronic obstructive pulmonary disease, unspecified <Kristian Michel - Last Filed: 06/19/18 19:37> (3) HLD (hyperlipidemia) Qualifiers: Hyperlipidemia type: mixed hyperlipidemia Qualified Code(s): E78.2 - Mixed hyperlipidemia (6) COPD (chronic obstructive pulmonary disease) Qualifiers: COPD type: unspecified COPD Qualified Code(s): J44.9 - Chronic obstructive pulmonary disease, unspecified
[2018-06-19] MEDS: Aspirin 81 MG TAB.CHEW PO SCH (08:18)
[2018-06-19] MEDS: *HR* Amiodarone 200 MG TABLET PO SCH ×2 (08:18→20:18)
[2018-06-19] MEDS ORDERED: Potassium Chloride Elixir 20 MEQ/15 ML UDC PO ONE (09:38)
[2018-06-19] MEDS: Venlafaxine XR (24 HR) 150 MG CAP.ER.24H PO SCH (10:14)
[2018-06-19] MEDS: *HR* HYDROcodone/Acet 5/325 mg TABLET PO PRN ×2 (10:14→19:31)
--- NOTE | 2018-06-19 10:30 | Electrophysiology Consult Note ---
Date of Encounter: 06/19/18 Time of Encounter: 10:30 Assessment and Plan (1) Ventricular tachycardia Current Visit: Yes Status: Resolved Per Cardiology: Patient noted to have stable monomorphic VT in ER with no loss of consciousness and underwent sedation with DC cardioversion. Currently on amiodarone drip and sinus rhythm on telemetry. Rythmol medication discontinued. LHC: Impressions: Coronary arteries are angiographically normal. The left ventricle is normal and has normal contractility EF 55% Off amiodarone drip and on by mouth 400mg BID. EF preserved on echo June 2017 -- repeat echo pending. Troponins negative 3. Electrolytes stable. Of note, patient is DNR/Comfort Care arrest/DNI, however patient agreeable to consider ICD insertion if clinically warranted. We will discuss with Dr. Obdulio Brand. Potassium noted to be 3.2 today, will replace. (2) PAF (paroxysmal atrial fibrillation) Current Visit: Yes Status: Chronic Per Cardiology: History of paroxysmal atrial fibrillation on antiarrhythmic therapy. Rythmol currently off-- of note underwent recent titration with cardioversion a few weeks ago. On amio PO. TSH stable. Symptoms were resolved with amiodarone, however recurrence of A. fib with RVR this morning currently in the 100s. (3) Anticoagulant long-term use Current Visit: Yes Status: Chronic Per Cardiology: Reports compliance with long-term anticoagulant, s/p [facility], Xarelto. Was recently held during hospital stay for catheterization. Discussion w patient/family: The assessment and plan as outlined above was discussed with the patient who expressed understanding and agreement. All questions were answered. Thank you for involving us in the care of your patient. Please call with any questions. History of Present Illness Consult date: 06/19/18 Requesting physician: Tony Le Consult reason: Afib, failed Chief complaint: SOB History of present illness: EP Consult: Recurrent A. fib now off Rythmol and on amiodarone, status post monomorphic VT with cardioversion. Ms. Barksdale is a 63 year old female with a relevant past mental history of atrial fibrillation on antiarrhythmic therapy, COPD, GERD, hyperlipidemia, and history of TIA. Has past history of nicotine abuse. Recent increase of Rythmol up to 225 mg by mouth every 8 hours status post cardioversion about 3 weeks ago. Cardiology consult for recurrent A. fib and ventricular tachycardia. Patient seen with family at bedside. She reports she believes she remains sinus rhythm for about one week after most recent cardioversion. She indicates the past 2 weeks has noticed symptoms returning of short of breath at rest and exertion, palpitations, and dizziness. She reports yesterday evening developed worsening short of breath with exertion with difficulty walking to the bathroom. She reports systolic blood pressures noted to be in the 90s and heart rates in the 170s. She denied any syncope or falls or loss of consciousness. Denied any chest pain symptoms. Reports compliance with taking Rythmol. Additionally, has not missed any doses of Xarelto and denies any active bleeding or blood loss. Denies any past history of CAD and never had catheterization in the past. Currently chest pain-free. She reports short of breath, dizziness, and palpitations currently subsided. EP consult now for recurrent A. fib with amiodarone. Patient reports this morning he noticed palpitations with some mild short of breath returning. ECG shows A. fib with RVR. She denies any chest pain. Denies any new concerns or complaints. Patient reports she is open to concept of possible ICD insertion if clinically warranted. Past Med Surg Social Fam HX - Past Medical History Attestation: Yes The following information was validated with the patient. Source: patient, old records reviewed Medical history: atrial fibrillation, COPD, GERD, hyperlipidemia, TIA, other Additional medical history: MIGRAINES, ANXIETY,DEPRESSION,SLEEP PROBLEMS, Psychiatric history: anxiety, depression - Past Surgical History Surgical History: cholecystectomy, other Additional surgical history: Breast biopsy 1989,tubal - Social History Smoking Status: Former smoker Smokeless Tobacco Status: No Alcohol use: none Drug use: none - Family History Father Hx Family Endocrine Disorder: Yes (DM) Brother Living Status: Still Living Hx Family Cardiac Disorders: Yes (Quad bypass surgery 2013) Hx Family Cancer: Yes (Prostate ca) Hx Family Neurologic Disorders: Yes (migraines) Sister Living Status: Still Living Hx Family Cardiac Disorders: Yes (HTN) Hx Family Endocrine Disorder: Yes (DM) Hx Family Neurologic Disorders: Yes (migrains) Mother Living Status: Hx Family Cardiac Disorders: Yes (Blood clots) Hx Family Endocrine Disorder: Yes (DM) Medications and Allergies Cholecalciferol (D-3) [Vitamin D] 2,000 unit PO DAILY 07/07/16 [History] Pravastatin Sodium [Pravachol] 40 mg PO QPM 07/07/16 [History] Aspirin 81 mg PO DAILY tab.chew 07/09/16 [Rx] Omeprazole [PriLOSEC] 20 mg PO DAILY 07/11/17 [History] Rizatriptan Benzoate [Maxalt] 10 mg PO DAILY PRN 07/11/17 [History] Venlafaxine XR (24 HR) [Effexor Xr] 150 mg PO DAILY 07/11/17 [History] Gabapentin [Neurontin] 300 mg PO HS 11/29/17 [History] Metoprolol [Lopressor] 50 mg PO BID 11/29/17 [History] Acetaminophen [Tylenol] 500 mg PO Q6HR PRN 05/09/18 [History] Calcium Carbonate/Vitamin D3 [Caltrate 600 + D Soft Chew Tab] 1 each PO BID [History] Pramipexole [Mirapex] 0.5 mg PO HS 05/09/18 [History] Zolpidem [Ambien] 5 mg PO HS PRN 05/09/18 [History] Propafenone HCl [Rythmol Sr] 225 mg PO TID 05/25/18 [History] Rivaroxaban [Xarelto] 20 mg PO DAILY 06/17/18 [History] 3 Allergy/AdvReac Type Severity Reaction Status Date / Time Amoxicillin [From Augmentin] Allergy Rash Verified 03/23/16 18:01 clavulanic acid Allergy Rash Verified 03/23/16 18:01 [From Augmentin] prednisone Allergy Rash Verified 07/11/17 14:27 All Systems Review: The remainder of the systems were reviewed and are negative - Cardiovascular Cardiovascular: as per HPI, dyspnea at rest, dyspnea on exertion, lightheadedness, palpitations, rapid heart rate Physical Examination Vital Signs, Last 4 Hours Temp Pulse Resp BP Pulse Ox 06/19/18 06:48 98.5 F 97 16 122/66 91 General: Conversant, No Apparent Distress HEENT: Atraumatic, Normocephaly, Mucus Membranes Moist Neck: No JVD, Normal carotid pulses Cardiac: No Murmur, Other (Irregularly irregular) Lungs: Normal Breath Sounds, No Wheeze, Rales, Rhonchi Neuro: Alert and responsive, No focal deficits noted Abdomen: Soft, Non-Tender Skin: No rashes noted on visualized skin Musculoskeletal: No Chest Wall Tenderness Extremities: No Clubbing, No Cyanosis, No Edema, Normal Pulses Results 06/19/18 04:43 06/19/18 04:43 Lab Results 06/19/18 06/19/18 04:43 04:43 WBC 10.0 Hgb 10.5 L Hct 33.3 L Plt Count 234 Sodium 144 Potassium 3.2 L Chloride 112 H Carbon Dioxide 23 BUN 6 L Creatinine 0.89 Glucose 99 Calcium 8.9 - Imaging and Cardiology Echo: pending Cardiac cath: report reviewed - EKG Interpretation EKG results cardiology: personally reviewed Consult Discharge Plan - Plan Referrals: Juhi Jacobson MD [Primary Care Provider] -
--- NOTE | 2018-06-19 11:19 | Event Note ---
Date of Encounter: 06/19/18 Time of Encounter: 11:20 - Cardiology Event Note Discussed and reviewed with Dr. Obdulio Brand, recommend decrease amiodarone to 200 mg by mouth twice a day. No further intervention warranted at this time. We will continue to monitor on telemetry.
--- NOTE | 2018-06-19 12:11 | Electrocardiograph Report ---
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
--- NOTE | 2018-06-19 17:34 | Electrocardiograph Report ---
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
--- NOTE | 2018-06-19 17:50 | Electrocardiograph Report ---
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
[2018-06-19] MEDS: *HR* Rivaroxaban 10 MG TABLET PO SCH (18:01)
[2018-06-20] MEDS: *HR* HYDROcodone/Acet 5/325 mg TABLET PO PRN (04:42)
[2018-06-20 05:10] LABS: Basophils % 0.2 %; Eosinophils # 0.1 K/mcL (0.0-0.6); Eosinophils % 1.3 %; Hematocrit 31.5 % (35.3-44.9); Hemoglobin 10.2 g/dL (11.5-15.4); Immature Granulocytes % 0.4 % (0-4); Lymphocytes # 2.3 K/mcL (0.6-4.6); Lymphocytes % 21.5 %; Mean Corpuscular HGB Conc 32.4 g/dL (31.6-35.5); Mean Corpuscular Hemoglobin 28.5 pg (28.0-33.3); Mean Platelet Volume 10.4 fL (9.4-12.4); Monocytes # 1.3 K/mcL (0.0-1.3); Monocytes % 12.2 %; Platelet Count 221 K/mcL (140-400); Red Blood Count 3.58 M/mcL (3.82-4.97); Red Cell Distribution Width 17.9 % (11.5-14.5); Segmented Neutrophils % 64.4 %
[2018-06-20 05:27] LABS: BUN/Creatinine Ratio 7 (6-26); Blood Urea Nitrogen 6 mg/dL (8-23); Calcium 8.6 mg/dL (8.6-10.3); Carbon Dioxide 21 mEq/L (23-29); Chloride 113 mEq/L (98-107); Glucose 119 mg/dL (70-105); Osmolality,Calculated 293 (280-300); Potassium 3.2 mEq/L (3.5-5.1); Sodium 142 mEq/L (136-145); eGFR For Non-African Americans > 60 (> 60)
--- NOTE | 2018-06-20 07:27 | Internal Med Progress Note ---
Hospitalist Progress Note - Encounter Date of Encounter: 06/20/18 Time of Encounter: 08:45 - Subjective Interval History: Ms. Barksdale is a 63F who was admitted for an increased HR on 06/16. While in the ED, she went into V tach and was subsequently cardioverted. She underwent LHC on 06/17. She was rate controlled with amiodarone successfully prior to this encounter. Prior to entering pt room, the nurse informed this provider that pt was back in a fib. Pt has no new or acute complaints. States she feels well. No chest pain, SOB, numbness, or tingling. States she has a baseline aching type headache which is relieved by Tylenol. Denies any difficulty eating, nausea, or vomiting. - Exam Vitals: Temp Pulse Resp BP Pulse Ox 98.3 F 112 18 116/82 94 06/20/18 06:57 06/20/18 06:57 06/20/18 06:57 06/20/18 06:57 06/20/18 06:57 Exam: Constitutional: Well-nourished, well-developed female resting comfortably in bed. No acute distress Head: atraumatic, normocephalic Eyes: PERRL, conjuntiva pink, sclera anicteric, EOMI Neck: supple, trachea midline Lungs: CTA bilaterally, normal chest wall movement. No accessory muscle use, wheezes, rales, or rhonchi. Heart: Tachycardic and regular. +S1. No murmurs, clicks, or rubs. Abdomen: soft, non-tender, non-distended Extremities: warm, radial pulses palpable and symmetrical. No cyanosis or pedal edema Neuro: A&Ox3, no focal deficits, speech difficulty or speech abnormality. Skin: warm, dry, intact - Assessment and Plan (1) PAF (paroxysmal atrial fibrillation) Current Visit: Yes Status: Chronic Assessment and Plan: CHADS-VASc Score: 4 (age 63, female, history of TIA) She continues to be in A. fib with RVR Currently on 200mg Amio BID Spoke with cardiology this morning. Awaiting recommendations for further rhythm /rate control of Afib. May consider restarting home Lopressor. (2) HLD (hyperlipidemia) Current Visit: No Status: Chronic Assessment and Plan: Continue home Zocor (3) Ventricular tachycardia Current Visit: Yes Status: Resolved Assessment and Plan: Patient went into ventricular tachycardia in the emergency room, was hypotensive , and required cardioversion. Patient was started on amiodarone drip at that time TSH and magnesium levels within normal limits At this time pt has not gone back into V tach. Cardio on board. (4) COPD (chronic obstructive pulmonary disease) Current Visit: Yes Status: Chronic Assessment and Plan: Without acute exacerbation Patient was a former smoker Duonebs as needed (5) Anticoagulant long-term use Current Visit: Yes Status: Chronic Assessment and Plan: Xarelto continued by Cardiology (6) CKD (chronic kidney disease) stage 3, GFR 30-59 ml/min Current Visit: Yes Status: Chronic Assessment and Plan: DRE resolved Avoid nephrotoxins Tolerated [facility] (7) Obesity (BMI 30.0-34.9) Current Visit: No Status: Chronic Assessment and Plan: BMI 31.5, lifestyle modification (8) DVT prophylaxis Current Visit: Yes Status: Acute Assessment and Plan: On Xarelto DVT Prophylaxis: on Xarelto - Time Spent with Patient Total time spent is greater than 50% in coordination of care (as documented) at patient's floor/unit and/or counseling patient: Internal Medicine: Result - Labs CBC & Chem 7: 06/20/18 04:43 06/20/18 04:43 Labs: Short CBC 06/20/18 Range/Units 04:43 WBC 10.8 (4.3-11.1) K/mcL Hgb 10.2 L (11.5-15.4) g/dL Hct 31.5 L (35.3-44.9) % Plt Count 221 (140-400) K/mcL Neutrophils # 7.0 (1.6-8.9) K/mcL BMP 06/20/18 04:43 Sodium 142 Potassium 3.2 L Chloride 113 H Carbon Dioxide 21 L BUN 6 L Creatinine 0.82 Glucose 119 H Calcium 8.6 - ABG Interpretation ABG results: PT/INR, D-dimer PT 21.5 Seconds (9.4-12.1) H 06/17/18 04:14 - Impressions Impressions Echocardiogram 06/19/18 07:45 Impressions: LVEF 60%. Indeterminate diastolic function. Normal right ventricular structure and function. Mild-moderate mitral regurgitation. Moderate aortic regurgitation. Mild tricuspid regurgitation. No pulmonary hypertension based on TR gradient obtained. IVC not well visualized. Left Ventricular Wall Motion: Rest Echo Findings All wall segments showed normal motion. Findings: Study Quality * Technically adequate exam. ECG Findings * Atrial fibrillation. Left Ventricle * LVEF 60%. * Normal LV chamber size, wall thickness and function. * Indeterminate diastolic function. Right Ventricle * Normal right ventricular structure and function. Left Atrium * Severely dilated left atrium. Right Atrium * Normal right atrial size. Mitral Valve * Normal mitral valve structure. * No mitral stenosis. * Mild-moderate mitral regurgitation. Aortic Valve * Aortic valve not well visualized. * No aortic stenosis. * Moderate aortic regurgitation. Tricuspid Valve * Tricuspid valve not well visualized. * Mild tricuspid regurgitation. Pulmonic Valve * Pulmonic valve is not well visualized. * No pulmonic stenosis. * Trace pulmonic regurgitation. Pulmonary Artery * Pulmonary artery not well visualized. Aorta * Normally sized aortic root. Pericardium * There is no pericardial effusion present. Interatrial Septum * Interatrial septum not well evaluated. IVC * The IVC is not well evaluated. - VTE Reasons for not Prescribing Prophylaxis: Not indicated-Anticoagulated or INR therapeutic Consult Discharge Plan - Plan Instructions: Atrial Fibrillation (DC), Cardioversion (DC) Referrals: Juhi Jacobson MD [Primary Care Provider] - 07/03/18 11:15 am Prescriptions: Amiodarone [Cordarone] 200 mg PO BID 7 Days #14 tablet Amiodarone [Cordarone] 200 mg PO DAILY 30 Days #30 tablet (2) HLD (hyperlipidemia) Qualifiers: Hyperlipidemia type: mixed hyperlipidemia Qualified Code(s): E78.2 - Mixed hyperlipidemia (4) COPD (chronic obstructive pulmonary disease) Qualifiers: COPD type: unspecified COPD Qualified Code(s): J44.9 - Chronic obstructive pulmonary disease, unspecified
[2018-06-20] MEDS: Venlafaxine XR (24 HR) 150 MG CAP.ER.24H PO SCH (07:38)
[2018-06-20] MEDS: *HR* Amiodarone 200 MG TABLET PO SCH (07:38)
[2018-06-20] MEDS: Aspirin 81 MG TAB.CHEW PO SCH (07:38)
--- NOTE | 2018-06-20 08:18 | Electrophysiology ProgressNote ---
Date of Encounter: 06/20/18 Time of Encounter: 08:15 Assessment and Plan (1) Ventricular tachycardia Current Visit: Yes Status: Resolved Per Cardiology: Patient noted to have stable monomorphic VT in ER with no loss of consciousness and underwent sedation with DC cardioversion. Currently on amiodarone drip and sinus rhythm on telemetry. Rythmol medication discontinued. LHC: Impressions: Coronary arteries are angiographically normal. The left ventricle is normal and has normal contractility EF 55% ECHO: Impressions: LVEF 60%. Indeterminate diastolic function. Normal right ventricular structure and function. Mild-moderate mitral regurgitation. Moderate aortic regurgitation. Mild tricuspid regurgitation. No pulmonary hypertension based on TR gradient obtained. IVC not well visualized. Left Ventricular Wall Motion: Rest Echo Findings All wall segments showed normal motion. Now on Amio 200mg BID. Troponins negative 3. Electrolytes stable. Of note, patient is DNR/Comfort Care arrest/DNI, however patient agreeable to consider ICD insertion if clinically warranted-- per discussion with Dr. Brand yesterday , no recs for ICD at this time. (2) PAF (paroxysmal atrial fibrillation) Current Visit: Yes Status: Chronic Per Cardiology: History of paroxysmal atrial fibrillation on antiarrhythmic therapy. Rythmol currently off-- of note underwent recent titration with cardioversion a few weeks ago. On amio PO. TSH stable. Symptoms were resolved with amiodarone, however recurrence of A. fib with RVR-- currently in the 130s. SBP 110-120's. Per review of medical records patient on Lopressor 50 mg by mouth twice a day at home. We will give IV Lopressor 2.5 mg 1 now and start Lopressor 25 mg by mouth twice a day and monitor heart rate and blood pressure. Will discuss with Dr. Brand. (3) Anticoagulant long-term use Current Visit: Yes Status: Chronic Per Cardiology: Reports compliance with long-term anticoagulant, s/p [facility], Xarelto. Was recently held during hospital stay for catheterization. Discussion w patient/family: The assessment and plan as outlined above was discussed with the patient who expressed understanding and agreement. All questions were answered. Thank you for involving us in the care of your patient. Please call with any questions. Subjective Principal diagnosis: VT, Afib Interval history: Patient denies any concerns over night. Denies any chest pain, shortness of breath. Reports mild palpitations. Objective Vital Signs, Last 4 Hours Temp Pulse Resp BP Pulse Ox 06/20/18 06:57 98.3 F 112 18 116/82 94 General: Conversant, No Apparent Distress HEENT: Atraumatic, Normocephaly, Mucus Membranes Moist Neck: No JVD, Normal carotid pulses Cardiac: No Murmur, Other (Irregularly irregular) Lungs: Normal Breath Sounds, No Wheeze, Rales, Rhonchi Neuro: Alert and responsive, No focal deficits noted Abdomen: Soft, Non-Tender Skin: No rashes noted on visualized skin Musculoskeletal: No Chest Wall Tenderness Extremities: No Clubbing, No Cyanosis, No Edema, Normal Pulses Results 06/20/18 04:43 06/20/18 04:43 Lab Results Laboratory Tests 06/19/18 06/20/18 06/20/18 04:43 04:43 04:43 Hgb 10.2 L Hct 31.5 L Potassium 3.2 L Creatinine 0.82 Est GFR (Non-Af Amer) > 60 > 60 ITS Impressions Chest X-Ray 06/16/18 20:43 IMPRESSION: 1. Enlarged cardiomediastinal silhouette may represent cardiomegaly and/or pericardial effusion. This may also be due to low lung volumes. 2. No focal consolidation, pneumothorax, or significant pleural effusion. D/ / 06/16/2018 21:39:23 Arnaud Daniel MD / [facility] Interpreting Provider: Arnaud Daniel MD Echocardiogram 06/19/18 07:45 Impressions: LVEF 60%. Indeterminate diastolic function. Normal right ventricular structure and function. Mild-moderate mitral regurgitation. Moderate aortic regurgitation. Mild tricuspid regurgitation. No pulmonary hypertension based on TR gradient obtained. IVC not well visualized. Left Ventricular Wall Motion: Rest Echo Findings All wall segments showed normal motion. Findings: Study Quality * Technically adequate exam. ECG Findings * Atrial fibrillation. Left Ventricle * LVEF 60%. * Normal LV chamber size, wall thickness and function. * Indeterminate diastolic function. Right Ventricle * Normal right ventricular structure and function. Left Atrium * Severely dilated left atrium. Right Atrium * Normal right atrial size. Mitral Valve * Normal mitral valve structure. * No mitral stenosis. * Mild-moderate mitral regurgitation. Aortic Valve * Aortic valve not well visualized. * No aortic stenosis. * Moderate aortic regurgitation. Tricuspid Valve * Tricuspid valve not well visualized. * Mild tricuspid regurgitation. Pulmonic Valve * Pulmonic valve is not well visualized. * No pulmonic stenosis. * Trace pulmonic regurgitation. Pulmonary Artery * Pulmonary artery not well visualized. Aorta * Normally sized aortic root. Pericardium * There is no pericardial effusion present. Interatrial Septum * Interatrial septum not well evaluated. IVC * The IVC is not well evaluated. - Imaging and Cardiology Echo: report reviewed Cardiac cath: report reviewed - EKG Interpretation EKG results cardiology: other (Average heart rate 102 on telemetry the past 12 hours, currently A. fib in the 130s) - VTE Reasons for not Prescribing Prophylaxis: Not indicated-Anticoagulated or INR therapeutic Consult Discharge Plan - Plan Referrals: Juhi Jacobson MD [Primary Care Provider] - 07/03/18 11:15 am
[2018-06-20] MEDS ORDERED: *HR* Metoprolol 5 MG/5 ML VIAL IVP ONE (09:20)
--- NOTE | 2018-06-20 14:14 | Event Note ---
Date of Encounter: 06/20/18 Time of Encounter: 14:10 - Cardiology Event Note Current systolic blood pressure in the 130s and heart rate 80-s-90's, afib in the 80s to 90s. Will increase beta rand to home dose of Lopressor grams by mouth twice a day. Discussed and reviewed with Dr. Obdulio Brand, continue with amiodarone and titration of beta rand for rate control strategy. Cardiology will sign off, reconsult as needed, follow-up in outpatient setting for possible cardioversion. All questions answered.
--- NOTE | 2018-06-20 14:58 | Discharge Summary ---
<Benjamin Amaral Sonali - Last Filed: 06/20/18 15:53> - NOTES TO OUTPATIENT PROVIDER Notes to Outpatient Provider: Ms. Barksdale was admitted for an increased HR on . While in the ED, she went into Ventricular tachycardia and was subsequently cardioverted successfully into normal sinus rhythm. She underwent LHC on 06/17 which showed normal coronary arteries and an left ventricular ejection fraction of 55%. She was rate controlled with amiodarone until 06/19 when she went into Atrial fibrillation with rapid ventricular response. Throughout this hospital stay, cardiology recommended stopping the Rhythmol, and taking 200mg Amiodarone BID for 7 days after discharge, followed by 200mg once a day. Date of Encounter: 06/20/18 Time of Encounter: 14:50 - Discharge Diagnosis (1) PAF (paroxysmal atrial fibrillation) Priority: Primary Status: Chronic Assessment and Plan: CHADS-VASc Score: 4 (age 63, female, history of TIA) She continues to be in A. fib with RVR Currently on 200mg Amio BID Per cardio: 7 days of Amio 200mg BID after 7 days - Amio 200mg qd Follow up with cardio outpatient (2) HLD (hyperlipidemia) Priority: Secondary Status: Chronic Assessment and Plan: Continue home Zocor Qualifiers: Hyperlipidemia type: mixed hyperlipidemia Qualified Code(s): E78.2 - Mixed hyperlipidemia (3) Ventricular tachycardia Priority: Secondary Status: Resolved Assessment and Plan: Patient went into ventricular tachycardia in the emergency room, was hypotensive , and required cardioversion. Patient was started on amiodarone drip at that time TSH and magnesium levels within normal limits At this time pt has not gone back into V tach. Follow up with cardiology Discontinue Rhythmol (4) COPD (chronic obstructive pulmonary disease) Priority: Secondary Status: Chronic Assessment and Plan: Without acute exacerbation Patient was a former smoker Qualifiers: COPD type: unspecified COPD Qualified Code(s): J44.9 - Chronic obstructive pulmonary disease, unspecified (5) Anticoagulant long-term use Priority: Secondary Status: Chronic Assessment and Plan: Continue Xarelto (6) Obesity (BMI 30.0-34.9) Priority: Secondary Status: Chronic Assessment and Plan: BMI 31.5, lifestyle modification (7) CKD (chronic kidney disease) stage 3, GFR 30-59 ml/min Priority: Secondary Status: Chronic Assessment and Plan: DRE resolved Avoid nephrotoxins Tolerated [facility] Hospital course: Ms. Barksdale is a 63 year old female Discharge discussed with: patient, nurse, benefits sales consultant - Time Spent with Patient Total time spent providing and/or coordinating discharge services: - Discharge Medications Prescriptions: Amiodarone [Cordarone] 200 mg PO BID 7 Days #14 tablet Amiodarone [Cordarone] 200 mg PO DAILY 30 Days #30 tablet Home Medications: Cholecalciferol (D-3) [Vitamin D] 2,000 unit PO DAILY 07/07/16 [History] Pravastatin Sodium [Pravachol] 40 mg PO QPM 07/07/16 [History] Aspirin 81 mg PO DAILY tab.chew 07/09/16 [Rx] Omeprazole [PriLOSEC] 20 mg PO DAILY 07/11/17 [History] Rizatriptan Benzoate [Maxalt] 10 mg PO DAILY PRN 07/11/17 [History] Venlafaxine XR (24 HR) [Effexor Xr] 150 mg PO DAILY 07/11/17 [History] Gabapentin [Neurontin] 300 mg PO HS 11/29/17 [History] Metoprolol [Lopressor] 50 mg PO BID 11/29/17 [History] Acetaminophen [Tylenol] 500 mg PO Q6HR PRN 05/09/18 [History] Calcium Carbonate/Vitamin D3 [Caltrate 600 + D Soft Chew Tab] 1 each PO BID [History] Pramipexole [Mirapex] 0.5 mg PO HS 05/09/18 [History] Zolpidem [Ambien] 5 mg PO HS PRN 05/09/18 [History] Rivaroxaban [Xarelto] 20 mg PO DAILY 06/17/18 [History] Amiodarone [Cordarone] 200 mg PO BID 7 Days #14 tablet 06/20/18 [Rx] Amiodarone [Cordarone] 200 mg PO DAILY 30 Days #30 tablet 06/20/18 [Rx] Allergies/Adverse Reactions: 3 Allergy/AdvReac Type Severity Reaction Status Date / Time Amoxicillin [From Augmentin] Allergy Rash Verified 03/23/16 18:01 clavulanic acid Allergy Rash Verified 03/23/16 18:01 [From Augmentin] prednisone Allergy Rash Verified 07/11/17 14:27 Date of admission: 06/17/18 02:45 Primary care physician: Juhi Jacobson Consults: 06/18/18 09:22 Consult to Electrophysiology (EP) [CONS] Routine Consulting Provider: Electrophysiology Jessica Reason for Consult: hx recurrent afib rvr, admitted for sustained vtach requiring cardioversion, on Amiodarone 400mg BID now, s/p LHC non-stenotic, appreciate EP consult for ICD discussion, patient following Cardiology consult already Call Completed: Yes Discharging clinician: Benjamin Amaral - Constitutional Vitals: Temp Pulse Resp BP Pulse Ox 98.3 F 85 16 135/66 95 06/20/18 11:00 06/20/18 11:00 06/20/18 11:00 06/20/18 11:00 06/20/18 11:00 General appearance: Present: cooperative, pleasant, no acute distress, answers questions appropriately Exam: Constitutional: Well-nourished, well-developed female resting comfortably in bed. No acute distress Head: atraumatic, normocephalic Eyes: PERRL, conjuntiva pink, sclera anicteric, EOMI Neck: supple, trachea midline Lungs: CTA bilaterally, normal chest wall movement. No accessory muscle use, wheezes, rales, or rhonchi. Heart: Tachycardic and regular. +S1. No murmurs, clicks, or rubs. Abdomen: soft, non-tender, non-distended Extremities: warm, radial pulses palpable and symmetrical. No cyanosis or pedal edema Neuro: A&Ox3, no focal deficits, speech difficulty or speech abnormality. Skin: warm, dry, intact - Patient Status Disposition: Home, Self-Care Condition: Critical Functional capacity at discharge: independent ambulation Overall status at discharge: patient is back to baseline - Discharge Instructions Instructions: Atrial Fibrillation (DC), Cardioversion (DC) Follow Up With: Juhi Jacobson MD [Primary Care Provider] - 07/03/18 11:15 am - Diet and Activity Activity: increase activity as tolerated, resume usual activities as tolerated Diet: low fat, low cholesterol, low salt diet - VTE Reasons for not Prescribing Prophylaxis: Not indicated-Anticoagulated or INR therapeutic <Santosh Amaya - Last Filed: 06/20/18 16:07> Date of Encounter: 06/20/18 - Discharge Diagnosis (1) Obesity (BMI 30.0-34.9) Status: Chronic (2) HLD (hyperlipidemia) Status: Chronic Qualifiers: Hyperlipidemia type: mixed hyperlipidemia Qualified Code(s): E78.2 - Mixed hyperlipidemia (3) PAF (paroxysmal atrial fibrillation) Status: Chronic (4) Ventricular tachycardia Status: Resolved (5) COPD (chronic obstructive pulmonary disease) Status: Chronic Qualifiers: COPD type: unspecified COPD Qualified Code(s): J44.9 - Chronic obstructive pulmonary disease, unspecified (6) Anticoagulant long-term use Status: Chronic (7) CKD (chronic kidney disease) stage 3, GFR 30-59 ml/min Status: Chronic Hospital course: Ms. Barksdale is a 63 year old female - Time Spent with Patient Total time spent providing and/or coordinating discharge services: Date of admission: 06/17/18 02:45 Primary care physician: Juhi Jacobson Consults: 06/18/18 09:22 Consult to Electrophysiology (EP) [CONS] Routine Consulting Provider: Electrophysiology Jessica Reason for Consult: hx recurrent afib rvr, admitted for sustained vtach requiring cardioversion, on Amiodarone 400mg BID now, s/p LHC non-stenotic, appreciate EP consult for ICD discussion, patient following Cardiology consult already Call Completed: Yes - Constitutional Vitals: Temp Pulse Resp BP Pulse Ox 98.3 F 85 16 135/66 95 06/20/18 11:00 06/20/18 11:00 06/20/18 11:00 06/20/18 11:00 06/20/18 11:00 - Attending Attestation I performed an independent interview and examine of this patient. I agree with the findings, assessment, and plan of Dr. Amaral, internal medicine sports management internship. Is doing well. She still has persistent tachycardia managed by cardiology but otherwise felt stable for discharge per cardiology. Follow-up with them as an outpatient. Continue amiodarone at the current dose. Patient is stable for discharge. Continues on anticoagulation. Exam: No acute distress, awake and oriented 3 Heart irregular, mildly tachycardic Lungs clear Extremities no significant edema
[2018-06-20 16:06] VITALS: BP 126/87
== END 2018-06-20 16:41 | disposition home or self-care (01) | DRG 287 ==
LOC: EMEROOARM 20:37 → ICNU 20:37 → SUATTDRO 06-17 02:45 → 2NNU 06-17 14:42
PROVIDERS: ADMIT Family Medicine; ATTEND Internal Medicine

== ENCOUNTER 2021-02-03 13:14 | Observation (INO) ==
[2021-02-24] MEDS ORDERED: Melatonin 3 MG TABLET PO PRN (10:46)
[2021-02-24] MEDS ORDERED: Naloxone 0.4 MG/ML INJ IVP PRN (10:46)
[2021-02-24 11:59] LABS: Calcium 9.4 mg/dL (8.6-10.3); Potassium 3.3 mEq/L (3.5-5.1)
[2021-02-24] MEDS: Metoprolol 100 MG TABLET PO SCH ×2 (14:21→21:33)
[2021-02-24] MEDS: Furosemide 20 MG TABLET PO SCH (14:21)
[2021-02-24] MEDS: Cholecalciferol (D-3) 1,000 UNIT (25MCG) TABLET PO SCH (14:21)
[2021-02-24] MEDS: Venlafaxine XR (24 HR) 150 MG CAP.ER.24H PO SCH (14:21)
[2021-02-24] MEDS: Aspirin 81 MG TAB.CHEW PO SCH (14:21)
[2021-02-24] MEDS: *HR* Rivaroxaban 10 MG TABLET PO SCH (16:10)
[2021-02-24] MEDS: Gabapentin 300 MG CAPSULE PO SCH (21:23)
[2021-02-25 06:14] LABS: BUN/Creatinine Ratio 10 (6-26); Blood Urea Nitrogen 10 mg/dL (8-23); Calcium 8.9 mg/dL (8.6-10.3); Carbon Dioxide 25 mEq/L (23-29); Chloride 107 mEq/L (98-107); Glucose 128 mg/dL (70-105); Osmolality,Calculated 289 (280-300); Potassium 3.4 mEq/L (3.5-5.1); Sodium 139 mEq/L (136-145); eGFR For African Americans > 60 (> 60); eGFR For Non-African Americans 53 (> 60)
[2021-02-25] MEDS ORDERED: Nitroglycerin 0.4 MG TAB.SUBL SL PRN (06:44)
[2021-02-25] MEDS ORDERED: Nitroglycerin 0.4 MG TAB.SUBL SL ONE (06:46)
[2021-02-25] MEDS ORDERED: Morphine Sulfate 2 MG/ML SYRINGE IVP ONE (06:49)
[2021-02-25] MEDS: Furosemide 20 MG TABLET PO SCH (09:28)
[2021-02-25] MEDS: Aspirin 81 MG TAB.CHEW PO SCH (09:28)
[2021-02-25] MEDS: Venlafaxine XR (24 HR) 150 MG CAP.ER.24H PO SCH (09:28)
[2021-02-25] MEDS: Cholecalciferol (D-3) 1,000 UNIT (25MCG) TABLET PO SCH (09:28)
[2021-02-25] MEDS: *HR* Rivaroxaban 10 MG TABLET PO SCH (09:28)
[2021-02-25] MEDS: Metoprolol 100 MG TABLET PO SCH (09:30)
[2021-02-25] MEDS: Gabapentin 300 MG CAPSULE PO SCH (21:09)
[2021-02-26 03:09] LABS: BUN/Creatinine Ratio 10 (6-26); Blood Urea Nitrogen 10 mg/dL (8-23); Calcium 8.6 mg/dL (8.6-10.3); Carbon Dioxide 25 mEq/L (23-29); Chloride 105 mEq/L (98-107); Glucose 148 mg/dL (70-105); Osmolality,Calculated 286 (280-300); Potassium 3.2 mEq/L (3.5-5.1); Sodium 137 mEq/L (136-145); eGFR For African Americans > 60 (> 60); eGFR For Non-African Americans 58 (> 60)
[2021-02-26] MEDS: Furosemide 20 MG TABLET PO SCH (09:25)
[2021-02-26] MEDS: Venlafaxine XR (24 HR) 150 MG CAP.ER.24H PO SCH (09:25)
[2021-02-26] MEDS: *HR* Rivaroxaban 10 MG TABLET PO SCH (09:26)
[2021-02-26] MEDS: Aspirin 81 MG TAB.CHEW PO SCH (09:26)
[2021-02-26] MEDS: Cholecalciferol (D-3) 1,000 UNIT (25MCG) TABLET PO SCH (09:26)
[2021-02-26 15:49] VITALS: BP 116/53
== END 2021-02-26 16:39 | disposition home or self-care (01) ==
LOC: 3ANU
PROVIDERS: ADMIT Internal Medicine Clinical Cardiac Electrophysiology; ATTEND Internal Medicine Clinical Cardiac Electrophysiology

== ENCOUNTER 2021-04-13 09:07 | Observation (INO) ==
[2021-04-13] MEDS ORDERED: Clindamycin 900 MG/50 ML 900 MG/50 ML IV.SOLN IVPB ONE (09:20)
[2021-04-13] MEDS: Ringers Solution, Lactated 1,000 ML IVC SCH ×2 (09:30→12:39)
[2021-04-13] MEDS ORDERED: *HR* FentaNYL (PF) 100 MCG/2 ML VIAL ONE ×2 (09:56→10:40)
[2021-04-13] MEDS ORDERED: *HR* Propofol 200 MG/20 ML VIAL IVP ONE ×2 (09:56→11:31)
[2021-04-13] MEDS ORDERED: Ondansetron 4 MG/2 ML VIAL ONE (09:57)
[2021-04-13] MEDS ORDERED: Lidocaine -MPF 2% 2 ML VIAL ONE (09:57)
[2021-04-13] MEDS ORDERED: Lidocaine -MPF 4% 5 ML AMPUL ONE (09:57)
[2021-04-13] MEDS ORDERED: *HR* Succinylcholine 200 MG/10 ML VIAL IVP ONE (09:57)
[2021-04-13] MEDS ORDERED: *HR* HYDROmorphone PF 0.5 MG/0.5 ML SYRINGE IVP PRN (10:38)
[2021-04-13] MEDS ORDERED: Promethazine 6.25 MG in Water for inj. (sterile) 20 ML IVPB PRN (10:38)
[2021-04-13] MEDS ORDERED: Ondansetron 4 MG/2 ML VIAL IVP PRN ×2 (10:38→15:58)
[2021-04-13] MEDS ORDERED: *HR* OxyCODONE Immed Rel 5 MG TABLET PO PRN (10:38)
[2021-04-13] MEDS ORDERED: *HR* Rocuronium Bromide 50 MG/5 ML VIAL ONE (10:43)
[2021-04-13] MEDS ORDERED: Scopolamine Patch 1.5 MG PATCH.TD72 TD ONE (10:48)
[2021-04-13] MEDS ORDERED: Polymyxin B Sulfate 500,000 UNIT, Sodium Chloride IRRigation 1,000 ML IR ONE (10:50)
[2021-04-13] MEDS ORDERED: EPHEDrine 50 MG/ML VIAL ONE (11:25)
[2021-04-13] MEDS ORDERED: *HR* HYDROMORPHONE 2 MG/ML VIAL ONE (11:43)
[2021-04-13] MEDS ORDERED: Acetaminophen IV 1,000 MG/100 ML BAG IVPB ONE ×2 (11:46→11:50)
[2021-04-13] MEDS ORDERED: *HR* Magnesium Sulfate 1 GM/2 ML VIAL ONE (12:09)
[2021-04-13] MEDS ORDERED: Sugammadex Sodium 200 MG/2 ML VIAL IV ONE (12:36)
[2021-04-13] MEDS ORDERED: Vancomycin 1,000 MG VIAL ONE (12:38)
[2021-04-13] MEDS ORDERED: Albumin Human 5% 12.5 GM/250 ML IV.SOLN ONE (13:09)
[2021-04-13] MEDS ORDERED: Albumin Human 5% 12.5 GM/250 ML IV.SOLN IVPB PRN (13:10)
[2021-04-13] MEDS ORDERED: Naloxone 0.4 MG/ML INJ IVP PRN (15:58)
[2021-04-13] MEDS ORDERED: Ringers Solution, Lactated 1,000 ML IVC SCH (15:58)
[2021-04-13] MEDS: *HR* HYDROcodone/Acet 5/325 mg TABLET PO PRN (16:18)
[2021-04-13] MEDS: Acetaminophen 325 MG TABLET PO PRN (19:34)
[2021-04-13 20:27] LABS: Hematocrit 27.9 % (35.3-44.9)
[2021-04-13 20:28] LABS: Hemoglobin 8.8 g/dL (11.5-15.4)
[2021-04-13] MEDS: Metoprolol 100 MG TABLET PO SCH (20:29)
[2021-04-13] MEDS: Clindamycin 900 MG/50 ML 900 MG/50 ML IV.SOLN IVPB SCH (20:44)
[2021-04-13] MEDS: 0.9 % Sodium Chloride 1,000 ML IVC SCH (20:46)
[2021-04-14] MEDS: Acetaminophen 325 MG TABLET PO PRN (01:17)
[2021-04-14] MEDS: Clindamycin 900 MG/50 ML 900 MG/50 ML IV.SOLN IVPB SCH (04:41)
[2021-04-14] MEDS: *HR* HYDROcodone/Acet 5/325 mg TABLET PO PRN (04:48)
[2021-04-14] MEDS: 0.9 % Sodium Chloride 1,000 ML IVC SCH ×3 (04:50→20:45)
[2021-04-14] MEDS: Metoprolol 100 MG TABLET PO SCH ×2 (08:07→20:40)
[2021-04-14] MEDS: *HR* OxyCODONE Immed Rel 5 MG TABLET PO PRN ×4 (08:10→22:54)
[2021-04-14 12:23] LABS: Basophils % 0.1 %; Eosinophils % 0.1 %; Hemoglobin 8.1 g/dL (11.5-15.4); Immature Granulocytes % 0.5 % (0-4); Lymphocytes # 1.7 K/mcL (0.6-4.6); Mean Corpuscular HGB Conc 32.4 g/dL (31.6-35.5); Mean Corpuscular Hemoglobin 30.7 pg (28.0-33.3); Mean Corpuscular Volume 94.7 fL (83.0-100.0); Mean Platelet Volume 9.8 fL (9.4-12.4); Monocytes # 1.9 K/mcL (0.0-1.3); Monocytes % 10.7 %; Neutrophils # 13.6 K/mcL (1.6-8.9); Platelet Count 211 K/mcL (140-400); Red Blood Count 2.64 M/mcL (3.82-4.97); Red Cell Distribution Width 16.2 % (11.5-14.5); Segmented Neutrophils % 78.6 %; White Blood Count 17.3 K/mcL (4.3-11.1)
[2021-04-14 12:47] LABS: BUN/Creatinine Ratio 12 (6-26); Blood Urea Nitrogen 9 mg/dL (8-23); Calcium 7.7 mg/dL (8.6-10.3); Carbon Dioxide 23 mEq/L (23-29); Chloride 110 mEq/L (98-107); Glucose 124 mg/dL (70-105); Osmolality,Calculated 286 (280-300); Potassium 4.1 mEq/L (3.5-5.1); Sodium 138 mEq/L (136-145); eGFR For African Americans > 60 (> 60); eGFR For Non-African Americans > 60 (> 60)
[2021-04-14] MEDS ORDERED: RIZATRIPTAN BENZOATE 10 MG PO PRN (13:19)
[2021-04-14] MEDS: Furosemide 40 MG TABLET PO SCH (16:59)
[2021-04-14] MEDS: Potassium Chloride Elixir 20 MEQ/15 ML UDC PO SCH (17:00)
[2021-04-14] MEDS: *HR* Rivaroxaban 10 MG TABLET PO SCH (17:00)
[2021-04-14] MEDS: rOPINIRole 1 MG TABLET PO SCH (20:39)
[2021-04-14] MEDS: Gabapentin 300 MG CAPSULE PO SCH (20:39)
[2021-04-14] MEDS: Nystatin Ointment 15 GM TUBE TP SCH (22:55)
[2021-04-15] MEDS: 0.9 % Sodium Chloride 1,000 ML IVC SCH ×2 (05:23→18:05)
[2021-04-15] MEDS: *HR* OxyCODONE Immed Rel 5 MG TABLET PO PRN ×4 (05:53→21:57)
[2021-04-15 06:36] LABS: Hematocrit 28.4 % (35.3-44.9); Hemoglobin 8.7 g/dL (11.5-15.4)
[2021-04-15] MEDS: Potassium Chloride Elixir 20 MEQ/15 ML UDC PO SCH ×2 (08:38→18:19)
[2021-04-15] MEDS: Aspirin 81 MG TAB.CHEW PO SCH (08:38)
[2021-04-15] MEDS: Cholecalciferol (D-3) 1,000 UNIT (25MCG) TABLET PO SCH (08:39)
[2021-04-15] MEDS: Venlafaxine XR (24 HR) 150 MG CAP.ER.24H PO SCH (08:39)
[2021-04-15] MEDS: Metoprolol 100 MG TABLET PO SCH ×2 (08:40→21:58)
[2021-04-15] MEDS: Furosemide 40 MG TABLET PO SCH ×2 (08:40→17:04)
[2021-04-15] MEDS: Nystatin Ointment 15 GM TUBE TP SCH ×2 (08:41→22:05)
[2021-04-15] MEDS: Acetaminophen 325 MG TABLET PO PRN (08:46)
[2021-04-15] MEDS: *HR* Rivaroxaban 10 MG TABLET PO SCH (17:04)
[2021-04-15] MEDS: rOPINIRole 1 MG TABLET PO SCH (21:57)
[2021-04-15] MEDS: Gabapentin 300 MG CAPSULE PO SCH (21:57)
[2021-04-15] MEDS: Ondansetron 4 MG/2 ML VIAL IVP PRN (22:14)
[2021-04-16] MEDS: *HR* OxyCODONE Immed Rel 5 MG TABLET PO PRN ×4 (05:34→21:49)
[2021-04-16] MEDS: Aspirin 81 MG TAB.CHEW PO SCH (08:42)
[2021-04-16] MEDS: Metoprolol 100 MG TABLET PO SCH ×2 (08:43→21:48)
[2021-04-16] MEDS: Venlafaxine XR (24 HR) 150 MG CAP.ER.24H PO SCH (08:43)
[2021-04-16] MEDS: Potassium Chloride Elixir 20 MEQ/15 ML UDC PO SCH ×2 (08:43→15:58)
[2021-04-16] MEDS: Cholecalciferol (D-3) 1,000 UNIT (25MCG) TABLET PO SCH (08:43)
[2021-04-16] MEDS: Nystatin Ointment 15 GM TUBE TP SCH ×2 (08:44→21:49)
[2021-04-16] MEDS: Furosemide 40 MG TABLET PO SCH ×2 (08:44→15:58)
[2021-04-16] MEDS: *HR* HYDROcodone/Acet 5/325 mg TABLET PO PRN (08:46)
[2021-04-16 09:43] LABS: Hematocrit 25.8 % (35.3-44.9); Hemoglobin 8.3 g/dL (11.5-15.4)
[2021-04-16 13:41] LABS: BUN/Creatinine Ratio 10 (6-26); Blood Urea Nitrogen 7 mg/dL (8-23); Calcium 8.3 mg/dL (8.6-10.3); Carbon Dioxide 26 mEq/L (23-29); Chloride 102 mEq/L (98-107); Glucose 132 mg/dL (70-105); Magnesium 1.7 mg/dL (1.6-2.6); Osmolality,Calculated 280 (280-300); Potassium 3.6 mEq/L (3.5-5.1); Sodium 135 mEq/L (136-145); eGFR For African Americans > 60 (> 60); eGFR For Non-African Americans > 60 (> 60)
[2021-04-16] MEDS ORDERED: Iron Sucrose Complex 200 MG in 0.9 % Sodium Chloride 100 ML IVPB ONE (14:16)
[2021-04-16] MEDS: Ondansetron 4 MG/2 ML VIAL IVP PRN (14:43)
[2021-04-16] MEDS: *HR* Rivaroxaban 10 MG TABLET PO SCH (15:57)
[2021-04-16] MEDS: Gabapentin 300 MG CAPSULE PO SCH (21:48)
[2021-04-16] MEDS: rOPINIRole 1 MG TABLET PO SCH (21:49)
[2021-04-17] MEDS ORDERED: *HR* Metoprolol 5 MG/5 ML VIAL IVP PRN (03:42)
[2021-04-17 05:15] LABS: Basophils # 0.1 K/mcL (0.0-0.2); Basophils % 0.4 %; Eosinophils # 0.2 K/mcL (0.0-0.6); Eosinophils % 1.8 %; Hematocrit 26.8 % (35.3-44.9); Hemoglobin 8.4 g/dL (11.5-15.4); Immature Granulocytes % 0.8 % (0-4); Lymphocytes # 1.9 K/mcL (0.6-4.6); Lymphocytes % 14.3 %; Mean Corpuscular HGB Conc 31.3 g/dL (31.6-35.5); Mean Corpuscular Hemoglobin 29.7 pg (28.0-33.3); Mean Corpuscular Volume 94.7 fL (83.0-100.0); Mean Platelet Volume 9.7 fL (9.4-12.4); Monocytes # 0.4 K/mcL (0.0-1.3); Monocytes % 2.7 %; Neutrophils # 10.5 K/mcL (1.6-8.9); Platelet Count 239 K/mcL (140-400); Red Blood Count 2.83 M/mcL (3.82-4.97); White Blood Count 13.1 K/mcL (4.3-11.1)
[2021-04-17] MEDS: *HR* OxyCODONE Immed Rel 5 MG TABLET PO PRN (05:25)
[2021-04-17 05:36] LABS: BUN/Creatinine Ratio 9 (6-26); Blood Urea Nitrogen 7 mg/dL (8-23); Calcium 8.4 mg/dL (8.6-10.3); Carbon Dioxide 27 mEq/L (23-29); Chloride 98 mEq/L (98-107); Glucose 107 mg/dL (70-105); Magnesium 1.9 mg/dL (1.6-2.6); Osmolality,Calculated 276 (280-300); Potassium 3.5 mEq/L (3.5-5.1); Sodium 134 mEq/L (136-145); eGFR For African Americans > 60 (> 60); eGFR For Non-African Americans > 60 (> 60)
[2021-04-17 05:47] LABS: Thyroid Stimulating Hormone 1.447 mcIU/mL (0.340-5.600)
[2021-04-17] MEDS ORDERED: Potassium Chloride Elixir 20 MEQ/15 ML UDC PO ONE (08:13)
[2021-04-17] MEDS: Aspirin 81 MG TAB.CHEW PO SCH (09:14)
[2021-04-17] MEDS: Cholecalciferol (D-3) 1,000 UNIT (25MCG) TABLET PO SCH (09:14)
[2021-04-17] MEDS: Furosemide 40 MG TABLET PO SCH ×3 (09:14→17:11)
[2021-04-17] MEDS: Venlafaxine XR (24 HR) 150 MG CAP.ER.24H PO SCH (09:15)
[2021-04-17] MEDS: Metoprolol 100 MG TABLET PO SCH ×2 (09:15→19:49)
[2021-04-17] MEDS: Potassium Chloride Elixir 20 MEQ/15 ML UDC PO SCH ×2 (09:20→17:10)
[2021-04-17] MEDS: *HR* Digoxin 0.5 MG/2 ML AMPUL IVP SCH ×3 (10:40→22:03)
[2021-04-17] MEDS: 0.9 % Sodium Chloride 1,000 ML IVC SCH ×4 (11:00→19:48)
[2021-04-17] MEDS: *HR* HYDROcodone/Acet 5/325 mg TABLET PO PRN ×2 (11:23→22:36)
[2021-04-17] MEDS: Ondansetron 4 MG/2 ML VIAL IVP PRN (12:44)
[2021-04-17] MEDS: Nystatin Ointment 15 GM TUBE TP SCH ×2 (12:47→19:57)
[2021-04-17] MEDS: *HR* Rivaroxaban 10 MG TABLET PO SCH (17:11)
[2021-04-17] MEDS: Gabapentin 300 MG CAPSULE PO SCH (19:49)
[2021-04-17] MEDS: rOPINIRole 1 MG TABLET PO SCH (19:49)
[2021-04-18] MEDS: Acetaminophen 325 MG TABLET PO PRN ×3 (02:00→20:10)
[2021-04-18] MEDS: 0.9 % Sodium Chloride 1,000 ML IVC SCH ×3 (03:12→23:35)
[2021-04-18] MEDS: *HR* Digoxin 0.5 MG/2 ML AMPUL IVP SCH (03:13)
[2021-04-18 05:22] LABS: Basophils % 0.2 %; Eosinophils # 0.3 K/mcL (0.0-0.6); Eosinophils % 2.8 %; Hematocrit 23.7 % (35.3-44.9); Hemoglobin 7.2 g/dL (11.5-15.4); Immature Granulocytes % 0.5 % (0-4); Lymphocytes # 1.9 K/mcL (0.6-4.6); Lymphocytes % 19.1 %; Mean Corpuscular HGB Conc 30.4 g/dL (31.6-35.5); Mean Corpuscular Hemoglobin 29.4 pg (28.0-33.3); Mean Corpuscular Volume 96.7 fL (83.0-100.0); Monocytes # 1.4 K/mcL (0.0-1.3); Monocytes % 14.5 %; Neutrophils # 6.3 K/mcL (1.6-8.9); Platelet Count 243 K/mcL (140-400); Red Blood Count 2.45 M/mcL (3.82-4.97); Red Cell Distribution Width 16.2 % (11.5-14.5); Segmented Neutrophils % 62.9 %
[2021-04-18 05:43] LABS: BUN/Creatinine Ratio 12 (6-26); Blood Urea Nitrogen 9 mg/dL (8-23); Calcium 8.1 mg/dL (8.6-10.3); Carbon Dioxide 26 mEq/L (23-29); Chloride 101 mEq/L (98-107); Glucose 94 mg/dL (70-105); Magnesium 1.9 mg/dL (1.6-2.6); Osmolality,Calculated 280 (280-300); Potassium 3.9 mEq/L (3.5-5.1); Sodium 136 mEq/L (136-145); eGFR For African Americans > 60 (> 60); eGFR For Non-African Americans > 60 (> 60)
[2021-04-18] MEDS: Potassium Chloride Elixir 20 MEQ/15 ML UDC PO SCH ×2 (08:57→15:52)
[2021-04-18] MEDS: Cholecalciferol (D-3) 1,000 UNIT (25MCG) TABLET PO SCH (08:59)
[2021-04-18] MEDS: Metoprolol 100 MG TABLET PO SCH ×2 (08:59→20:11)
[2021-04-18] MEDS: Furosemide 40 MG TABLET PO SCH ×2 (09:00→15:48)
[2021-04-18] MEDS: Aspirin 81 MG TAB.CHEW PO SCH (09:01)
[2021-04-18] MEDS: Venlafaxine XR (24 HR) 150 MG CAP.ER.24H PO SCH (11:15)
[2021-04-18] MEDS: Nystatin Ointment 15 GM TUBE TP SCH ×2 (11:15→20:11)
[2021-04-18] MEDS: *HR* Rivaroxaban 10 MG TABLET PO SCH (15:48)
[2021-04-18] MEDS: *HR* HYDROcodone/Acet 5/325 mg TABLET PO PRN ×2 (15:57→23:34)
[2021-04-18] MEDS: rOPINIRole 1 MG TABLET PO SCH (20:10)
[2021-04-18] MEDS: Gabapentin 300 MG CAPSULE PO SCH (20:11)
[2021-04-19] MEDS: *HR* HYDROcodone/Acet 5/325 mg TABLET PO PRN ×2 (06:34→18:48)
[2021-04-19] MEDS: 0.9 % Sodium Chloride 1,000 ML IVC SCH ×3 (06:36→19:58)
[2021-04-19] MEDS: Aspirin 81 MG TAB.CHEW PO SCH (07:50)
[2021-04-19] MEDS: Cholecalciferol (D-3) 1,000 UNIT (25MCG) TABLET PO SCH (07:50)
[2021-04-19] MEDS: Venlafaxine XR (24 HR) 150 MG CAP.ER.24H PO SCH (07:50)
[2021-04-19] MEDS: Furosemide 40 MG TABLET PO SCH ×2 (07:50→18:49)
[2021-04-19] MEDS: Metoprolol 100 MG TABLET PO SCH ×2 (07:51→19:58)
[2021-04-19] MEDS: Nystatin Ointment 15 GM TUBE TP SCH ×2 (07:51→19:58)
[2021-04-19] MEDS: Potassium Chloride Elixir 20 MEQ/15 ML UDC PO SCH ×2 (07:59→18:49)
[2021-04-19 09:58] LABS: Hematocrit 24.5 % (35.3-44.9); Hemoglobin 7.7 g/dL (11.5-15.4)
[2021-04-19] MEDS ORDERED: 0.9 % Sodium Chloride 250 ML ONE (12:36)
[2021-04-19 18:44] VITALS: O2SAT 95
[2021-04-19] MEDS: *HR* Rivaroxaban 10 MG TABLET PO SCH (18:49)
[2021-04-19] MEDS: Gabapentin 300 MG CAPSULE PO SCH (19:58)
[2021-04-19] MEDS: rOPINIRole 1 MG TABLET PO SCH (19:58)
[2021-04-20] MEDS: *HR* HYDROcodone/Acet 5/325 mg TABLET PO PRN (02:41)
[2021-04-20] MEDS: 0.9 % Sodium Chloride 1,000 ML IVC SCH (06:13)
[2021-04-20 06:49] VITALS: BP 109/69; PULSE 73; TEMP 99.1
[2021-04-20 09:10] LABS: Hematocrit 29.3 % (35.3-44.9)
[2021-04-20 09:14] LABS: Hemoglobin 9.7 g/dL (11.5-15.4)
[2021-04-20] MEDS: Cholecalciferol (D-3) 1,000 UNIT (25MCG) TABLET PO SCH (10:39)
[2021-04-20] MEDS: *HR* OxyCODONE Immed Rel 5 MG TABLET PO PRN (10:39)
[2021-04-20] MEDS: Aspirin 81 MG TAB.CHEW PO SCH (10:39)
[2021-04-20] MEDS: Venlafaxine XR (24 HR) 150 MG CAP.ER.24H PO SCH (10:40)
[2021-04-20] MEDS: Furosemide 40 MG TABLET PO SCH (10:40)
[2021-04-20] MEDS: Metoprolol 100 MG TABLET PO SCH (10:40)
[2021-04-20] MEDS: Nystatin Ointment 15 GM TUBE TP SCH (10:40)
[2021-04-20] MEDS: Potassium Chloride Elixir 20 MEQ/15 ML UDC PO SCH (10:40)
== END 2021-04-20 12:32 | disposition home health service (06) ==
LOC: 3NENU 09:07 → SAMDAY 09:07 → 3BNU 15:55 → 3NENU 18:53
PROVIDERS: ADMIT Orthopaedic Surgery Orthopaedic Surgery of the Spine; ATTEND Orthopaedic Surgery Orthopaedic Surgery of the Spine

== ENCOUNTER 2021-06-02 10:11 | Inpatient (IN) ==
[2021-06-02 11:26] LABS: Hematocrit 32.9 % (35.3-44.9); Hemoglobin 10.3 g/dL (11.5-15.4); Mean Corpuscular HGB Conc 31.3 g/dL (31.6-35.5); Mean Corpuscular Hemoglobin 28.9 pg (28.0-33.3); Mean Corpuscular Volume 92.2 fL (83.0-100.0); Mean Platelet Volume 9.7 fL (9.4-12.4); Platelet Count 349 K/mcL (140-400); Red Blood Count 3.57 M/mcL (3.82-4.97); Red Cell Distribution Width 16.8 % (11.5-14.5); White Blood Count 10.9 K/mcL (4.3-11.1)
[2021-06-02 12:03] LABS: Alanine Aminotransferase 6 Units/L (7-52); Albumin 3.4 g/dL (3.5-5.7); Albumin/Globulin Ratio 0.9 (1.1-2.2); Alkaline Phosphatase 119 Units/L (34-104); Aspartate Amino Transferase 12 Units/L (13-39); BUN/Creatinine Ratio 11 (6-26); Bilirubin,Total 0.3 mg/dL (0.3-1.0); Blood Urea Nitrogen 11 mg/dL (8-23); Carbon Dioxide 24 mEq/L (23-29); Chloride 105 mEq/L (98-107); Globulin 3.7 g/dL (2.4-3.5); Glucose 112 mg/dL (70-105); Osmolality,Calculated 286 (280-300); Potassium 3.5 mEq/L (3.5-5.1); Sodium 138 mEq/L (136-145); Total Protein 7.1 g/dL (6.4-8.9); eGFR For African Americans > 60 (> 60); eGFR For Non-African Americans 57 (> 60)
[2021-06-02 12:06] LABS: C-Reactive Protein 103 mg/L (Less than 10)
[2021-06-02 12:12] LABS: Basophils # 0.2 K/mcL (0.0-0.2); Eosinophils # 0.4 K/mcL (0.0-0.6); Lymphocytes # 2.6 K/mcL (0.6-4.6); Monocytes # 0.9 K/mcL (0.0-1.3); Neutrophils # 6.8 K/mcL (1.6-8.9); Reactive Lymphocytes Present (Not Present)
[2021-06-02 12:13] LABS: Platelet Estimate Normal (Normal)
[2021-06-02] MEDS ORDERED: Ondansetron 4 MG/2 ML VIAL IVP PRN (13:02)
[2021-06-02] MEDS: Furosemide 40 MG TABLET PO SCH (17:15)
[2021-06-02] MEDS ORDERED: Gabapentin 300 MG CAPSULE PO SCH (21:00)
[2021-06-02] MEDS: Metoprolol 100 MG TABLET PO SCH (21:47)
[2021-06-03] MEDS: Metoprolol 100 MG TABLET PO SCH ×2 (07:43→21:09)
[2021-06-03] MEDS: Furosemide 40 MG TABLET PO SCH ×2 (07:44→21:07)
[2021-06-03] MEDS ORDERED: Cholecalciferol (D-3) 1,000 UNIT (25MCG) TABLET PO SCH (09:00)
[2021-06-03] MEDS ORDERED: Venlafaxine XR (24 HR) 150 MG CAP.ER.24H PO SCH (09:00)
[2021-06-03] MEDS ORDERED: Aspirin 81 MG TAB.CHEW PO SCH (09:00)
[2021-06-03] MEDS ORDERED: *HR* HYDROmorphone PF 0.5 MG/0.5 ML SYRINGE IVP PRN (15:13)
[2021-06-03] MEDS ORDERED: *HR* Meperidine 25 MG/ML SYRINGE IVP PRN (15:13)
[2021-06-03] MEDS ORDERED: Ondansetron 4 MG/2 ML VIAL IVP PRN ×2 (15:13→18:08)
[2021-06-03] MEDS ORDERED: Lidocaine -MPF 2% 2 ML VIAL ONE (16:00)
[2021-06-03] MEDS ORDERED: *HR* FentaNYL (PF) 100 MCG/2 ML VIAL ONE ×2 (16:00→17:01)
[2021-06-03] MEDS ORDERED: Ondansetron 4 MG/2 ML VIAL ONE (16:00)
[2021-06-03] MEDS ORDERED: *HR* Propofol 200 MG/20 ML VIAL IVP ONE (16:01)
[2021-06-03] MEDS ORDERED: Vancomycin 1,000 MG VIAL ONE (16:10)
[2021-06-03] MEDS ORDERED: *HR* Succinylcholine 200 MG/10 ML VIAL IVP ONE (16:46)
[2021-06-03] MEDS ORDERED: Lidocaine HCL 4 ML Topical Solution (Laryng-O-Jet Kit Sterile Pak) TP ONE (16:46)
[2021-06-03] MEDS ORDERED: Polymyxin B Sulfate 500,000 UNIT, Sodium Chloride IRRigation 1,000 ML IR ONE (17:30)
[2021-06-03] MEDS ORDERED: Ondansetron ODT 4 MG TAB.RAPDIS PO PRN (18:08)
[2021-06-03] MEDS ORDERED: Patient Taking Own Medication 1 EACH PO PRN (18:08)
[2021-06-03] MEDS ORDERED: Naloxone 0.4 MG/ML INJ IVP PRN (18:08)
[2021-06-03] MEDS ORDERED: Acetaminophen 325 MG TABLET PO PRN (18:08)
[2021-06-03] MEDS: *HR* HYDROcodone/Acet 5/325 mg TABLET PO PRN (18:32)
[2021-06-03] MEDS: Ringers Solution, Lactated 1,000 ML IVC SCH (18:32)
[2021-06-03] MEDS: Gabapentin 300 MG CAPSULE PO SCH (21:08)
[2021-06-03] MEDS: *HR* OxyCODONE Immed Rel 5 MG TABLET PO PRN (23:03)
[2021-06-04 03:13] LABS: Basophils % 0.1 %; Hematocrit 28.2 % (35.3-44.9); Immature Granulocytes % 0.5 % (0-4); Lymphocytes # 0.8 K/mcL (0.6-4.6); Lymphocytes % 8.7 %; Mean Corpuscular HGB Conc 31.9 g/dL (31.6-35.5); Mean Corpuscular Hemoglobin 28.8 pg (28.0-33.3); Mean Corpuscular Volume 90.1 fL (83.0-100.0); Mean Platelet Volume 9.9 fL (9.4-12.4); Monocytes # 0.1 K/mcL (0.0-1.3); Monocytes % 1.1 %; Neutrophils # 8.4 K/mcL (1.6-8.9); Platelet Count 308 K/mcL (140-400); Red Blood Count 3.13 M/mcL (3.82-4.97); Red Cell Distribution Width 16.2 % (11.5-14.5); Segmented Neutrophils % 89.6 %; White Blood Count 9.4 K/mcL (4.3-11.1)
[2021-06-04] MEDS ORDERED: Vancomycin 1,500 MG/265 ML IV.SOLN IVPB ONE (04:00)
[2021-06-04 04:04] LABS: BUN/Creatinine Ratio 10 (6-26); Blood Urea Nitrogen 9 mg/dL (8-23); Calcium 8.5 mg/dL (8.6-10.3); Carbon Dioxide 25 mEq/L (23-29); Chloride 104 mEq/L (98-107); Glucose 157 mg/dL (70-105); Osmolality,Calculated 284 (280-300); Potassium 4.1 mEq/L (3.5-5.1); Sodium 136 mEq/L (136-145); eGFR For African Americans > 60 (> 60); eGFR For Non-African Americans > 60 (> 60)
[2021-06-04] MEDS: Ringers Solution, Lactated 1,000 ML IVC SCH ×2 (04:08→14:29)
[2021-06-04] MEDS: Potassium Chloride Elixir 20 MEQ/15 ML UDC PO SCH ×2 (07:35→18:30)
[2021-06-04] MEDS: Cholecalciferol (D-3) 1,000 UNIT (25MCG) TABLET PO SCH (07:36)
[2021-06-04] MEDS: Aspirin 81 MG TAB.CHEW PO SCH (07:36)
[2021-06-04] MEDS: Furosemide 40 MG TABLET PO SCH ×3 (07:36→20:56)
[2021-06-04] MEDS: *HR* Rivaroxaban 10 MG TABLET PO SCH (07:36)
[2021-06-04] MEDS: Venlafaxine XR (24 HR) 150 MG CAP.ER.24H PO SCH (07:37)
[2021-06-04] MEDS: Metoprolol 100 MG TABLET PO SCH ×2 (07:37→20:57)
[2021-06-04] MEDS: *HR* OxyCODONE Immed Rel 5 MG TABLET PO PRN ×2 (07:53→23:14)
[2021-06-04] MEDS: *HR* HYDROcodone/Acet 5/325 mg TABLET PO PRN (14:27)
[2021-06-04] MEDS: Gabapentin 300 MG CAPSULE PO SCH (20:57)
[2021-06-05] MEDS: Ringers Solution, Lactated 1,000 ML IVC SCH ×2 (01:31→19:59)
[2021-06-05 06:50] LABS: Basophils % 0.2 %; Eosinophils # 0.1 K/mcL (0.0-0.6); Eosinophils % 0.4 %; Hematocrit 26.3 % (35.3-44.9); Immature Granulocytes % 0.5 % (0-4); Lymphocytes # 2.8 K/mcL (0.6-4.6); Lymphocytes % 24.6 %; Mean Corpuscular HGB Conc 30.4 g/dL (31.6-35.5); Mean Corpuscular Hemoglobin 28.3 pg (28.0-33.3); Mean Corpuscular Volume 92.9 fL (83.0-100.0); Monocytes # 1.1 K/mcL (0.0-1.3); Monocytes % 9.4 %; Neutrophils # 7.3 K/mcL (1.6-8.9); Platelet Count 294 K/mcL (140-400); Red Blood Count 2.83 M/mcL (3.82-4.97); Red Cell Distribution Width 16.4 % (11.5-14.5); Segmented Neutrophils % 64.9 %; White Blood Count 11.3 K/mcL (4.3-11.1)
[2021-06-05 07:20] LABS: BUN/Creatinine Ratio 11 (6-26); Blood Urea Nitrogen 11 mg/dL (8-23); Calcium 8.5 mg/dL (8.6-10.3); Carbon Dioxide 25 mEq/L (23-29); Chloride 105 mEq/L (98-107); Glucose 116 mg/dL (70-105); Osmolality,Calculated 286 (280-300); Potassium 3.9 mEq/L (3.5-5.1); Sodium 138 mEq/L (136-145); eGFR For African Americans > 60 (> 60); eGFR For Non-African Americans 53 (> 60)
[2021-06-05] MEDS: Potassium Chloride Elixir 20 MEQ/15 ML UDC PO SCH ×2 (08:08→16:57)
[2021-06-05] MEDS: Aspirin 81 MG TAB.CHEW PO SCH (08:10)
[2021-06-05] MEDS: Cholecalciferol (D-3) 1,000 UNIT (25MCG) TABLET PO SCH (08:10)
[2021-06-05] MEDS: Furosemide 40 MG TABLET PO SCH ×2 (08:12→21:12)
[2021-06-05] MEDS: Metoprolol 100 MG TABLET PO SCH ×2 (08:12→21:12)
[2021-06-05] MEDS: Venlafaxine XR (24 HR) 150 MG CAP.ER.24H PO SCH (08:13)
[2021-06-05] MEDS: *HR* Rivaroxaban 10 MG TABLET PO SCH (08:13)
[2021-06-05] MEDS ORDERED: 0.9 % Sodium Chloride 250 ML ONE (12:11)
[2021-06-05] MEDS ORDERED: Lidocaine -MPF 1% 5 ML AMPUL INFILT ONE (12:32)
[2021-06-05] MEDS: *HR* HYDROcodone/Acet 5/325 mg TABLET PO PRN (16:56)
[2021-06-05] MEDS: Vancomycin 1,500 MG/265 ML IV.SOLN IVPB SCH (16:57)
[2021-06-05] MEDS: Gabapentin 300 MG CAPSULE PO SCH (21:13)
[2021-06-05] MEDS: *HR* OxyCODONE Immed Rel 5 MG TABLET PO PRN (23:56)
[2021-06-06] MEDS: *HR* OxyCODONE Immed Rel 5 MG TABLET PO PRN ×2 (03:56→20:18)
[2021-06-06 05:10] LABS: Basophils % 0.4 %; Eosinophils # 0.2 K/mcL (0.0-0.6); Hematocrit 29.7 % (35.3-44.9); Hemoglobin 9.4 g/dL (11.5-15.4); Immature Granulocytes % 0.6 % (0-4); Lymphocytes # 2.7 K/mcL (0.6-4.6); Lymphocytes % 26.9 %; Mean Corpuscular HGB Conc 31.6 g/dL (31.6-35.5); Mean Corpuscular Hemoglobin 28.8 pg (28.0-33.3); Mean Corpuscular Volume 91.1 fL (83.0-100.0); Mean Platelet Volume 10.1 fL (9.4-12.4); Monocytes # 1.3 K/mcL (0.0-1.3); Monocytes % 12.9 %; Neutrophils # 5.8 K/mcL (1.6-8.9); Platelet Count 310 K/mcL (140-400); Red Blood Count 3.26 M/mcL (3.82-4.97); Red Cell Distribution Width 16.5 % (11.5-14.5); Segmented Neutrophils % 57.2 %; White Blood Count 10.1 K/mcL (4.3-11.1)
[2021-06-06 05:29] LABS: BUN/Creatinine Ratio 10 (6-26); Blood Urea Nitrogen 10 mg/dL (8-23); Calcium 8.9 mg/dL (8.6-10.3); Carbon Dioxide 29 mEq/L (23-29); Chloride 100 mEq/L (98-107); Glucose 104 mg/dL (70-105); Osmolality,Calculated 285 (280-300); Potassium 3.7 mEq/L (3.5-5.1); Sodium 138 mEq/L (136-145); eGFR For African Americans > 60 (> 60); eGFR For Non-African Americans 53 (> 60)
[2021-06-06] MEDS: *HR* Rivaroxaban 10 MG TABLET PO SCH (08:59)
[2021-06-06] MEDS: Venlafaxine XR (24 HR) 150 MG CAP.ER.24H PO SCH (08:59)
[2021-06-06] MEDS: Furosemide 40 MG TABLET PO SCH ×2 (08:59→20:18)
[2021-06-06] MEDS: Cholecalciferol (D-3) 1,000 UNIT (25MCG) TABLET PO SCH (08:59)
[2021-06-06] MEDS: Metoprolol 100 MG TABLET PO SCH ×2 (09:00→20:22)
[2021-06-06] MEDS: Aspirin 81 MG TAB.CHEW PO SCH (09:00)
[2021-06-06] MEDS: Potassium Chloride Elixir 20 MEQ/15 ML UDC PO SCH ×2 (09:00→16:38)
[2021-06-06] MEDS: Vancomycin 1,500 MG/265 ML IV.SOLN IVPB SCH (16:39)
[2021-06-06] MEDS: *HR* HYDROcodone/Acet 5/325 mg TABLET PO PRN (16:49)
[2021-06-06] MEDS: Gabapentin 300 MG CAPSULE PO SCH (20:19)
[2021-06-06] MEDS: Ringers Solution, Lactated 1,000 ML IVC SCH (20:22)
[2021-06-07 04:55] LABS: Basophils # 0.1 K/mcL (0.0-0.2); Basophils % 0.5 %; Eosinophils # 0.3 K/mcL (0.0-0.6); Eosinophils % 2.9 %; Hematocrit 32.9 % (35.3-44.9); Hemoglobin 10.5 g/dL (11.5-15.4); Immature Granulocytes % 0.5 % (0-4); Lymphocytes # 2.3 K/mcL (0.6-4.6); Lymphocytes % 24.2 %; Mean Corpuscular HGB Conc 31.9 g/dL (31.6-35.5); Mean Corpuscular Hemoglobin 28.8 pg (28.0-33.3); Mean Corpuscular Volume 90.1 fL (83.0-100.0); Monocytes # 1.1 K/mcL (0.0-1.3); Monocytes % 11.5 %; Neutrophils # 5.8 K/mcL (1.6-8.9); Platelet Count 354 K/mcL (140-400); Red Blood Count 3.65 M/mcL (3.82-4.97); Red Cell Distribution Width 16.4 % (11.5-14.5); Segmented Neutrophils % 60.4 %; White Blood Count 9.7 K/mcL (4.3-11.1)
[2021-06-07 05:09] LABS: BUN/Creatinine Ratio 8 (6-26); Blood Urea Nitrogen 8 mg/dL (8-23); Calcium 9.2 mg/dL (8.6-10.3); Carbon Dioxide 31 mEq/L (23-29); Chloride 98 mEq/L (98-107); Glucose 110 mg/dL (70-105); Osmolality,Calculated 285 (280-300); Potassium 3.6 mEq/L (3.5-5.1); Sodium 138 mEq/L (136-145); eGFR For African Americans > 60 (> 60); eGFR For Non-African Americans 53 (> 60)
[2021-06-07] MEDS: Aspirin 81 MG TAB.CHEW PO SCH (09:03)
[2021-06-07] MEDS: *HR* Rivaroxaban 10 MG TABLET PO SCH (09:03)
[2021-06-07] MEDS: Venlafaxine XR (24 HR) 150 MG CAP.ER.24H PO SCH (09:03)
[2021-06-07] MEDS: Metoprolol 100 MG TABLET PO SCH ×2 (09:03→20:56)
[2021-06-07] MEDS: Cholecalciferol (D-3) 1,000 UNIT (25MCG) TABLET PO SCH (09:03)
[2021-06-07] MEDS: Furosemide 40 MG TABLET PO SCH ×2 (09:04→20:56)
[2021-06-07] MEDS: Ringers Solution, Lactated 1,000 ML IVC SCH (09:04)
[2021-06-07] MEDS: Potassium Chloride Elixir 20 MEQ/15 ML UDC PO SCH ×2 (09:05→16:31)
[2021-06-07] MEDS: Spironolactone 25 MG TABLET PO SCH (09:18)
[2021-06-07] MEDS: Vancomycin 1,500 MG/265 ML IV.SOLN IVPB SCH (16:48)
[2021-06-07] MEDS: *HR* OxyCODONE Immed Rel 5 MG TABLET PO PRN (20:53)
[2021-06-07] MEDS: Gabapentin 300 MG CAPSULE PO SCH (20:56)
[2021-06-08 05:38] LABS: Basophils # 0.1 K/mcL (0.0-0.2); Basophils % 0.6 %; Eosinophils # 0.3 K/mcL (0.0-0.6); Eosinophils % 3.2 %; Hematocrit 30.7 % (35.3-44.9); Hemoglobin 9.8 g/dL (11.5-15.4); Immature Granulocytes % 0.8 % (0-4); Lymphocytes # 1.8 K/mcL (0.6-4.6); Lymphocytes % 20.1 %; Mean Corpuscular HGB Conc 31.9 g/dL (31.6-35.5); Mean Corpuscular Hemoglobin 28.7 pg (28.0-33.3); Mean Corpuscular Volume 89.8 fL (83.0-100.0); Mean Platelet Volume 9.9 fL (9.4-12.4); Monocytes % 11.8 %; Neutrophils # 5.6 K/mcL (1.6-8.9); Platelet Count 342 K/mcL (140-400); Red Blood Count 3.42 M/mcL (3.82-4.97); Red Cell Distribution Width 16.3 % (11.5-14.5); Segmented Neutrophils % 63.5 %; White Blood Count 8.8 K/mcL (4.3-11.1)
[2021-06-08 05:53] LABS: BUN/Creatinine Ratio 7 (6-26); Blood Urea Nitrogen 8 mg/dL (8-23); Calcium 8.9 mg/dL (8.6-10.3); Carbon Dioxide 32 mEq/L (23-29); Chloride 97 mEq/L (98-107); Glucose 110 mg/dL (70-105); Osmolality,Calculated 281 (280-300); Potassium 3.5 mEq/L (3.5-5.1); Sodium 136 mEq/L (136-145); eGFR For African Americans > 60 (> 60); eGFR For Non-African Americans 51 (> 60)
[2021-06-08] MEDS: *HR* Rivaroxaban 10 MG TABLET PO SCH (09:20)
[2021-06-08] MEDS: Spironolactone 25 MG TABLET PO SCH (09:21)
[2021-06-08] MEDS: Furosemide 40 MG TABLET PO SCH ×2 (09:21→19:57)
[2021-06-08] MEDS: Venlafaxine XR (24 HR) 150 MG CAP.ER.24H PO SCH (09:21)
[2021-06-08] MEDS: Metoprolol 100 MG TABLET PO SCH ×2 (09:22→20:28)
[2021-06-08] MEDS: Aspirin 81 MG TAB.CHEW PO SCH (09:22)
[2021-06-08] MEDS: Cholecalciferol (D-3) 1,000 UNIT (25MCG) TABLET PO SCH (09:22)
[2021-06-08] MEDS: Potassium Chloride Elixir 20 MEQ/15 ML UDC PO SCH ×2 (09:27→16:36)
[2021-06-08] MEDS: Vancomycin 1,500 MG/265 ML IV.SOLN IVPB SCH (14:42)
[2021-06-08] MEDS: *HR* OxyCODONE Immed Rel 5 MG TABLET PO PRN (19:57)
[2021-06-08] MEDS: Gabapentin 300 MG CAPSULE PO SCH (19:57)
[2021-06-09 05:50] LABS: Basophils % 0.4 %; Eosinophils # 0.4 K/mcL (0.0-0.6); Eosinophils % 3.7 %; Hemoglobin 10.8 g/dL (11.5-15.4); Immature Granulocytes % 0.5 % (0-4); Lymphocytes # 2.1 K/mcL (0.6-4.6); Lymphocytes % 22.1 %; Mean Corpuscular HGB Conc 31.8 g/dL (31.6-35.5); Mean Corpuscular Hemoglobin 28.4 pg (28.0-33.3); Mean Corpuscular Volume 89.5 fL (83.0-100.0); Mean Platelet Volume 9.7 fL (9.4-12.4); Monocytes # 1.2 K/mcL (0.0-1.3); Monocytes % 12.8 %; Neutrophils # 5.7 K/mcL (1.6-8.9); Platelet Count 378 K/mcL (140-400); Red Cell Distribution Width 16.1 % (11.5-14.5); Segmented Neutrophils % 60.5 %; White Blood Count 9.4 K/mcL (4.3-11.1)
[2021-06-09 06:16] LABS: Calcium 8.9 mg/dL (8.6-10.3); Potassium 3.5 mEq/L (3.5-5.1)
[2021-06-09] MEDS: Furosemide 40 MG TABLET PO SCH (07:44)
[2021-06-09] MEDS: Aspirin 81 MG TAB.CHEW PO SCH (07:44)
[2021-06-09] MEDS: Metoprolol 100 MG TABLET PO SCH (07:44)
[2021-06-09] MEDS: Venlafaxine XR (24 HR) 150 MG CAP.ER.24H PO SCH (07:44)
[2021-06-09] MEDS: Spironolactone 25 MG TABLET PO SCH (07:44)
[2021-06-09] MEDS: *HR* Rivaroxaban 10 MG TABLET PO SCH (07:44)
[2021-06-09] MEDS: Potassium Chloride Elixir 20 MEQ/15 ML UDC PO SCH (07:45)
[2021-06-09] MEDS: Cholecalciferol (D-3) 1,000 UNIT (25MCG) TABLET PO SCH (07:45)
[2021-06-09 12:02] VITALS: BP 101/79; PULSE 115; TEMP 98.5; O2SAT 94
[2021-06-09] MEDS: Vancomycin 1,500 MG/265 ML IV.SOLN IVPB SCH (15:06)
[2021-06-09] MEDS: *HR* OxyCODONE Immed Rel 5 MG TABLET PO PRN (15:50)
[2021-06-09] MEDS ORDERED: metroNIDAZOLE 500 MG TABLET PO SCH (21:00)
== END 2021-06-09 17:23 | disposition home health service (06) | DRG 857 ==
LOC: 3ANU → 3BNU 06-04 22:25 → 4WAOSI 06-05 23:03
PROVIDERS: ADMIT Orthopaedic Surgery Orthopaedic Surgery of the Spine; ATTEND Orthopaedic Surgery Orthopaedic Surgery of the Spine

== ENCOUNTER 2021-06-30 20:05 | Observation (INO) ==
[2021-06-30] MEDS ORDERED: 0.9 % Sodium Chloride 1,000 ML IVC ONE (20:15)
[2021-06-30 20:51] LABS: Basophils % 0.4 %; Eosinophils # 0.3 K/mcL (0.0-0.6); Eosinophils % 2.9 %; Hematocrit 29.8 % (35.3-44.9); Hemoglobin 9.6 g/dL (11.5-15.4); Immature Granulocytes % 0.4 % (0-4); Lymphocytes # 2.3 K/mcL (0.6-4.6); Lymphocytes % 24.7 %; Mean Corpuscular HGB Conc 32.2 g/dL (31.6-35.5); Mean Corpuscular Hemoglobin 28.7 pg (28.0-33.3); Mean Corpuscular Volume 89.2 fL (83.0-100.0); Mean Platelet Volume 9.9 fL (9.4-12.4); Monocytes # 1.1 K/mcL (0.0-1.3); Monocytes % 11.8 %; Neutrophils # 5.6 K/mcL (1.6-8.9); Platelet Count 324 K/mcL (140-400); Red Blood Count 3.34 M/mcL (3.82-4.97); Segmented Neutrophils % 59.8 %; White Blood Count 9.3 K/mcL (4.3-11.1)
[2021-06-30 20:59] LABS: INR 2.5; Prothrombin Time 28.1 Seconds (9.4-12.1)
[2021-06-30 21:02] LABS: Activated Partial Thrombo Time 42.2 Seconds (26.0-36.0)
[2021-06-30 21:04] LABS: BUN/Creatinine Ratio 9 (6-26); Blood Urea Nitrogen 11 mg/dL (8-23); Calcium 8.6 mg/dL (8.6-10.3); Carbon Dioxide 24 mEq/L (23-29); Chloride 105 mEq/L (98-107); Glucose 98 mg/dL (70-105); Osmolality,Calculated 287 (280-300); Potassium 3.2 mEq/L (3.5-5.1); Sodium 139 mEq/L (136-145); eGFR For African Americans 53 (> 60); eGFR For Non-African Americans 44 (> 60)
[2021-06-30 21:05] LABS: Troponin I < 0.03 ng/mL (< 0.04)
[2021-06-30 21:27] LABS: Reactive Lymphocytes Present (Not Present)
[2021-06-30 22:50] LABS: Bilirubin,Urine Negative (Negative); Blood,Urine Moderate (Negative); Clarity,Urine Clear (Clear); Color,Urine Light-Yellow (Yellow); Glucose,Urine (UA) Normal (Normal); Ketones,Urine Negative (Negative); Leukocyte Esterase,Urine Small (Negative); Nitrite,Urine Negative (Negative); Protein,Urine Trace mg/dL (Neg-Trace); Specific Gravity,Urine 1.016 (1.010-1.025); Squamous Epithelial Cell,Urine Few per hpf (None-Few); Urobilinogen,Urine Normal (Normal)
[2021-06-30] MEDS: DilTIAZem 50 MG/50 ML IV.SOLN IVC SCH (22:50)
[2021-06-30] MEDS ORDERED: Aspirin 325 MG TABLET PO ONE (23:31)
[2021-07-01] MEDS ORDERED: Perflutren Lipid Microsphere 1.3 ML in 0.9 % Sodium Chloride 8.7 ML IVP PRN (00:27)
[2021-07-01] MEDS ORDERED: *HR* Metoprolol 5 MG/5 ML VIAL IVP PRN (00:28)
[2021-07-01] MEDS ORDERED: Naloxone 0.4 MG/ML INJ IVP PRN (00:41)
[2021-07-01] MEDS ORDERED: Acetaminophen 325 MG TABLET PO PRN (00:41)
[2021-07-01] MEDS ORDERED: Ondansetron 4 MG/2 ML VIAL IVP PRN (00:41)
[2021-07-01 00:44] LABS: Influenza A PCR Negative (Negative); Influenza B PCR Negative (Negative); Resp. Syncytial Virus PCR Negative (Negative)
[2021-07-01 00:45] LABS: SARS-CoV-2 by PCR (In House) Negative (Negative)
[2021-07-01] MEDS: Aspirin Enteric Coated 81 MG Tablet PO SCH ×2 (01:01→07:48)
[2021-07-01] MEDS ORDERED: Potassium Chloride 20 MEQ, Lidocaine 1% 2 ML in 0.9 % Sodium Chloride 250 ML IVPB ONE (01:30)
[2021-07-01 02:36] LABS: Hematocrit 27.9 % (35.3-44.9); Hemoglobin 8.8 g/dL (11.5-15.4); Mean Corpuscular HGB Conc 31.5 g/dL (31.6-35.5); Mean Corpuscular Hemoglobin 28.1 pg (28.0-33.3); Mean Corpuscular Volume 89.1 fL (83.0-100.0); Mean Platelet Volume 9.9 fL (9.4-12.4); Platelet Count 295 K/mcL (140-400); Red Blood Count 3.13 M/mcL (3.82-4.97); Red Cell Distribution Width 17.2 % (11.5-14.5); White Blood Count 9.5 K/mcL (4.3-11.1)
[2021-07-01 02:56] LABS: Iron 23 mcg/dL (50-170)
[2021-07-01 03:02] LABS: % Iron Saturation 9 % (15-50); Transferrin 179 mg/dL (203-362)
[2021-07-01 03:10] LABS: BUN/Creatinine Ratio 10 (6-26); Blood Urea Nitrogen 11 mg/dL (8-23); Calcium 8.4 mg/dL (8.6-10.3); Carbon Dioxide 23 mEq/L (23-29); Chloride 107 mEq/L (98-107); Cholesterol 144 mg/dL (< 200); Glucose 92 mg/dL (70-105); HDL Cholesterol 36 mg/dL (40-59); LDL Cholesterol,Calculated 86 mg/dL (< 100); Magnesium 1.8 mg/dL (1.6-2.6); Osmolality,Calculated 287 (280-300); Potassium 3.1 mEq/L (3.5-5.1); Sodium 139 mEq/L (136-145); Triglycerides 109 mg/dL (< 150); eGFR For African Americans > 60 (> 60); eGFR For Non-African Americans 50 (> 60)
[2021-07-01 03:13] LABS: Ferritin 33 ng/mL (10-120)
[2021-07-01 03:20] LABS: Folate > 22.3 ng/mL (3.0-16.0); Vitamin B12 198 pg/mL (250-1100)
[2021-07-01 03:34] LABS: Estimated Average Glucose 140 mg/dl; Hemoglobin A1C 6.5 %
[2021-07-01] MEDS ORDERED: Potassium Chloride Elixir 20 MEQ/15 ML UDC PO ONE (06:07)
[2021-07-01] MEDS ORDERED: Calcium Gluconate 1gm/50mL 1 GM/50 ML BAG IVPB ONE (06:08)
[2021-07-01] MEDS: Venlafaxine XR (24 HR) 150 MG CAP.ER.24H PO SCH (07:48)
[2021-07-01] MEDS: Metoprolol 100 MG TABLET PO SCH ×2 (07:48→19:10)
[2021-07-01] MEDS: Furosemide 40 MG TABLET PO SCH ×2 (07:48→16:58)
[2021-07-01] MEDS: DilTIAZem 50 MG/50 ML IV.SOLN IVC SCH ×3 (07:49→15:52)
[2021-07-01] MEDS: DilTIAZem CD (24hr) 120 MG CAP.ER.24H PO SCH (16:58)
[2021-07-01] MEDS ORDERED: *HR* Rivaroxaban 10 MG TABLET PO SCH (17:00)
[2021-07-01] MEDS ORDERED: Gabapentin 300 MG CAPSULE PO SCH (21:00)
[2021-07-02 04:01] LABS: Hematocrit 26.3 % (35.3-44.9); Hemoglobin 8.7 g/dL (11.5-15.4); Mean Corpuscular HGB Conc 33.1 g/dL (31.6-35.5); Mean Corpuscular Hemoglobin 29.3 pg (28.0-33.3); Mean Corpuscular Volume 88.6 fL (83.0-100.0); Mean Platelet Volume 11.1 fL (9.4-12.4); Platelet Count 232 K/mcL (140-400); Red Blood Count 2.97 M/mcL (3.82-4.97); Red Cell Distribution Width 16.9 % (11.5-14.5); White Blood Count 7.9 K/mcL (4.3-11.1)
[2021-07-02 04:20] LABS: Calcium 8.4 mg/dL (8.6-10.3); Potassium 3.2 mEq/L (3.5-5.1)
[2021-07-02 07:00] VITALS: BP 112/51; PULSE 86; TEMP 98.2; O2SAT 93
[2021-07-02] MEDS: Aspirin Enteric Coated 81 MG Tablet PO SCH (08:35)
[2021-07-02] MEDS: DilTIAZem CD (24hr) 120 MG CAP.ER.24H PO SCH (08:35)
[2021-07-02] MEDS: Metoprolol 100 MG TABLET PO SCH (08:35)
[2021-07-02] MEDS: Furosemide 40 MG TABLET PO SCH (08:35)
[2021-07-02] MEDS: Venlafaxine XR (24 HR) 150 MG CAP.ER.24H PO SCH (08:37)
[2021-07-02] MEDS ORDERED: Cyanocobalamin (B-12) 1,000 MCG TABLET PO SCH (09:00)
== END 2021-07-02 11:19 | disposition home or self-care (01) ==
LOC: EMEROOARM 20:05 → 2ANU 20:05 → SUATTDRO 23:43 → 2ANU 07-01 00:26
PROVIDERS: ADMIT Internal Medicine; ATTEND Student in an Organized Health Care Education/Training Program